=== PATIENT | female | born 1985 | race Caucasian/White ===

== ENCOUNTER 2020-07-01 12:07 | Emergency (ER) | payer BC, OTHER ==
--- OUTSIDE RECORDS SUMMARY | 2020-07-01 12:11 | XMS REPORT | Continuity of Care Document ---
:1985 Author Organization [facility] t Address [address] [place] [address] Care Team Providers Name Role Phone Tamika REIS Primary Care Physician Unavailable Maria ORTIZ Attending Clinician Unavailable Christiano STILL Attending Clinician ARMANDO Attending Clinician Unavailable Armando PIERCE Attending Clinician Tamika REIS Attending Clinician Unavailable Vick LAURA, S Attending Clinician Capri STILL Attending Clinician Tyrell Reyes MA Attending Clinician Unavailable Tamika Reis MD Attending Clinician Montse RODRIGUEZ C Attending Clinician Unavailable Gertrudis GREEN Attending Clinician Unavailable Bria GREEN CMarlon Attending Clinician Unavailable Piero PIERCE Attending Clinician Giovanni PIERCE Attending Clinician Carmen Williamson MA Attending Clinician Unavailable CAPRI Attending Clinician Unavailable KENDAL Attending Clinician Unavailable Kendal LAURA Attending Clinician Tye PIERCE Attending Clinician Carla GREEN, Y Attending Clinician Unavailable Sander GREEN, E Attending Clinician Unavailable Cristina PIERCE, N. Attending Clinician Jefferson GREEN, L Attending Clinician Unavailable Curry GREEN M Attending Clinician Glenis Ulloa Attending Clinician Unavailable CHRISTIANO Attending Clinician Unavailable Won Attending Clinician FLEMING, D. 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-06 current current 0 Anderso use of use of 00:00: n insulin insulin 00 Type II Type II Disease Active diabetes diabetes 02-15 Ashwin o mellitus mellitus 00:00: n uncontroll uncontroll 00 ed ed Sedentary Sedentary Disease Active lifestyle lifestyle 02-15 Johann rso 00:00: n 00 Candidal Candidal Disease Active vulvovagin vulvovagin 01-30 An derso itis itis 00:00: n 00 Abnormal Abnormal Disease Active uterine uterine 01-30 Anderso bleeding bleeding 00:00: n 00 Hyperlipid Hyperlipid Disease Active M D emia emia 10-28 Anderso 00:00: n 00 Type 2 Type 2 Disease Active diabetes diabetes 03-23 Ashwin o mellitus mellitus 00:00: n with with 00 hyperglyce hyperglyce la la Presence Presence Disease Active MD velásquez of 02-03 Anderso intrauteri intrauteri 00:00: n ne ne 00 contracept contracept dioni device dioni device Hypertensi Hypertensi Disease Active M D on on 12-29 Anderso 00:00: n 00 Hyperglyce Hyperglyce Disease Active M D la la 12-21 Anderso 00:00: n 00 Malignant Malignant Disease Active neoplasm neoplasm 11-23 Ashwin o of of 00:00: n endometriu endometriu 00 m m Morbid Morbid Disease Active (severe) (severe) 11-10 Ashwin o obesity obesity 00:00: n due to due to 00 excess excess calories calories Chronic Chronic Disease Active iron iron 11-10 Anderso deficiency deficiency 00:00: n anemia 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 Family History Family Member Diagnosis Comments Start Date Stop Date Source Maternal aunt -Gynecology (Ovary, MD Holland Endometrial, Cervix, Vagina) Maternal grandfather -Gastrointestinal MD Holland (Esophagus, Liver, Bile Duct, Stomach, Pancreas, Colon, Rectum, Anus Maternal uncle Diabetes MD Conrad hughes Natural mother Diabetes MD Conrad hughes Natural mother Hypertension Vaughn son Paternal aunt -Breast cancer MD Wills rsnataly Family member Heart disease MD Mendes son Social History Social Habit Start Date Stop Date Quantity Comments Source Sex Assigned At MD Christopher on Tobacco use and 2020-03-25 2020-03-25 Never used MD Christopher on exposure 00:00:00 00:00:00 Alcohol intake 2020-03-25 2020-03-25 Current MD Conrad hughes 00:00:00 00:00:00 non-drinker of alcohol (finding) Alcohol Comment 2016-12-29 2016-12-29 none since early MD Holland 00:00:00 00:00:00 06/2016 Smoking Status Start Date Stop Date Source Never smoker MD Holland Medications Ordered Filled Start Stop Current Ordering Indication Dosage Frequency Signature Comments Components Source Medication Medication Date Date Medication? Clinician (SIG) Name Name dulaglutide 2019-06 Yes Morbid 1.5mg Inject 1.5 (Trulicity) 2-15 obesity mg under A nderso 1.5 mg/0.5 00:00: the skin n mL 00 once a injection week. insulin 2019-06 Yes Diabetes 18U Inject 18 M D glargine 2-15 mellitus Units Ashwin o (LANTUS 00:00: without under the n SOLOSTAR) 00 mention of skin twice 100 unit/mL complicatio daily. (3 mL) n, type II insulin pen or unspecified type, uncontrolle d insulin 2019-06 Yes Diabetes 10U Inject aspart 2-15 mellitus 10-20 Anderso U-100 00:00: without Units n (NovoLOG 00 mention of under the Flexpen complicatio skin 3 U-100 n, type II (three) Insulin) or times a 100 unit/mL unspecified day before (3 mL) type, meals. insulin pen uncontrolle Take d before meals as per the instructio ns provided insulin 2019-06 2020- No Diabetes 20U Inject 20 MD glargine 1-11 12-15 mellitus Units Vaughn so (LANTUS 00:00: 00:00 without under the n SOLOSTAR) 00 :00 mention of skin twice 100 unit/mL complicatio daily. (3 mL) n, type II insulin pen or unspecified type, uncontrolle d insulin 2019-06 2020- No Diabetes 14U Inject MD aspart - 12-15 mellitus 14-24 Anderso U-100 00:00: 00:00 without Units n (NovoLOG 00 :00 mention of under the Flexpen complicatio skin 3 U-100 n, type II (three) Insulin) or times a 100 unit/mL unspecified day before (3 mL) type, meals. insulin pen uncontrolle Take d before meals as per the instructio ns provided lisinopril 2019-06 Yes Hypertensio 40mg Take 1 MD (PRINIVIL,Z 0-29 n tablet (40 An derso ESTRIL) 40 00:00: mg) by n mg tablet 00 mouth every morning. amLODIPine 2019-06 Yes Hypertensio 5mg Take 1 MD (Norvasc) 5 0-29 n tablet (5 And erso mg tablet 00:00: mg) by n 00 mouth every evening. dulaglutide 2019-06- No Type 2 .75mg Inject MD (Trulicity) 12-15 diabetes 0.75 mg Anderso 0.75 mg/0.5 00:00: 00:00 mellitus under the n mL 00 :00 with skin once injection hyperglycem a week. ia ibuprofen 2019- Yes Malignant 800mg Take 1 MD (ADVIL,MOTR 03-17 neoplasm of tablet Anderso IN) 800 mg 00:00: endometrium (800 mg) n tablet 00 by mouth every 8 (eight) hours as needed for moderate pain. acetaminoph Yes Malignant 500mg Take 1 MD en (Tylenol 03-17 neoplasm of tablet Anderso Extra 00:00: endometrium (500 mg) n Strength) 00 by mouth 500 mg every 6 tablet (six) hours as needed for mild pain. minocycline 2020- No Malignant 100mg Take 1 MD (Minocin) 03-17 09-30 neoplasm of capsule Anderso 100 mg 00:00: 04:59 endometrium (100 mg) n capsule 00 :00 by mouth twice daily for 7 days. insulin 2019-2019- No Diabetes 18U Inject 18 MD glargine 03-09 11-11 mellitus Units Vaughn so (LANTUS 00:00: 00:00 without under the n SOLOSTAR) 00 :00 mention of skin twice 100 unit/mL complicatio daily. (3 mL) n, type II insulin pen or unspecified type, uncontrolle d insulin 2019-2019- No Diabetes 12U Inject MD aspart 03-09- mellitus -22 Anderso U-100 00:00: 00:00 without Units n (NovoLOG 00 :00 mention of under the Flexpen complicatio skin 3 U-100 n, type II (three) Insulin) or times a 100 unit/mL unspecified day before (3 mL) type, meals. insulin pen uncontrolle Give as d directed. insulin 2019-2019- No Diabetes 12U Inject MD lispro 03-09-18 mellitus - Anderso (HumaLOG 00:00: 00:00 without Units n KwikPen 00 :00 mention of under the Insulin) complicatio skin 3 100 unit/mL n, type II (three) insulin pen or times a unspecified day before type, meals for uncontrolle 30 days. d Give per instructio ns. lisinopril 2019- No Hypertensio 40mg Take 1 MD (PRINIVIL,Z - 10-29 n tablet (40 A nderso ESTRIL) 40 00:00: 00:00 mg) by n mg tablet 00 :00 mouth every morning. medroxyPROG 2019-0 Yes Menorrhagia 10mg Take 1 MD ESTERone 8-24 tablet (10 Vaughn so (Provera) 00:00: mg) by n 10 mg 00 mouth tablet daily. levonorgest 2019- 2020- No by rel 02-13 08-21 intrauteri Anderso (MIRENA) 20 14:19: 00:00 ne route n mcg/24 hour 20 :00 once. (5 years) IUD hydroCHLORO 2019-0 Yes Hypertensio 25mg Take 1 MD thiazide 8-21 n tablet (25 Vaughn so (HYDRODIURI 00:00: mg) by n L) 25 mg 00 mouth tablet every morning. pen needle, 2020-0 Yes Diabetes Use to diabetic 32 02-13 mellitus inject An derso gauge x 00:00: without insulin 4 n " ndle 00 mention of times complicatio daily. n, type II or unspecified type, uncontrolle d blood-gluco Yes Diabetes Use to se meter 02-13 mellitus check Ashwin o kit 00:00: without blood n 00 mention of glucose as complicatio directed. n, type II or unspecified type, uncontrolle d blood sugar Yes Diabetes Use to MD diagnostic 02-13 mellitus check BG 3 Anderso (glucose 00:00: without times n blood) strp 00 mention of daily complicatio before n, type II meals. or unspecified type, uncontrolle d FreeStyle Yes Diabetes 1{kit} 1 kit by Catrachita 14 02-13 mellitus miscellane A nderso Day Sensor 00:00: without ous route n kit 00 mention of every 28 complicatio days. n, type II Replace or sensor unspecified every 14 type, days. uncontrolle d amLODIPine 2019- No Hypertensio 5mg Take 1 MD (Norvasc) 5 02-13 10- n tablet (5 An derso mg tablet 00:00: 00:00 mg) by n 00 :00 mouth every evening. insulin 2019- No Diabetes 6U Inject lispro 02-13 mellitus 6-16 Units An derso (HumaLOG 00:00: 00:00 without under the n KwikPen 00 :00 mention of skin 3 Insulin) complicatio (three) 100 unit/mL n, type II times a insulin pen or day before unspecified meals for type, 30 days. uncontrolle Give per d instructio ns. insulin 2019- No Diabetes 18U Inject 18 glargine 02-13 mellitus Units Vaughn so (LANTUS 00:00: 00:00 without under the n SOLOSTAR) 00 :00 mention of skin every 100 unit/mL complicatio morning. (3 mL) n, type II insulin pen or unspecified type, uncontrolle d lancets 33 2019- No Diabetes Use lancet MD parr misc 02-13 08- mellitus to check Anderso 00:00: 04:59 without BG three n 00 :00 mention of times complicatio daily as n, type II as needed or for unspecified symptoms. type, uncontrolle d lisinopril 2019- Hypertensio 40mg Take 1 (Allan SHETH 01-30 n tablet (40 A nderso ESTRIL) 40 00:00: 00:00 mg) by n mg tablet 00 :00 mouth every morning. nystatin Candidal Apply MD (MYCOSTATIN 01-30 vulvovagini topically Anderso ) 100,000 00:00: 04:59 tis to n units/g 00 :00 affected powder area(s) 3 (three) times a day for 7 days. fluconazole Candidal 200mg Take 1 MD (DIFLUCAN) 01-30 vulvovagini tablet Anderso 200 mg 00:00: 04:59 tis (200 mg) n tablet 00 :00 by mouth daily for 3 days. metFORMIN Type 2 Take 1 MD (GLUCOPHAGE 12-29 diabetes tablet PO Anderso -XR) 500 mg 00:00: 00:00 mellitus in twice n 24 hr 00 :00 obese daily with tablet breakfast and dinner. If not having diarrhea after 5-7 days increase to 2 tablets twice daily. blood-gluco 2019- Type 2 Use as M D se meter 12-29 diabetes instructed Anderso kit 00:00: 00:00 mellitus in to check n 00 :00 obese blood sugar once daily lancets 2019- Type 2 Use to MD walton 12-29 diabetes check Anderso 00:00: 00:00 mellitus in blood n 00 :00 obese glucose once daily as instructed blood sugar 2019- No Type 2 Use to M D diagnostic 12-29 diabetes check And erso (glucose 00:00: 00:00 mellitus in blood n blood) strp 00 :00 obese sugar once daily such as Mon/Wed: fasting; Tues/Thurs : 2 hr after largest meal; Fri/Sat/[place] n: Bedtime ONETOUCH 2019- MD CRUZ 12-29 Anderso LANCETS 33 00:00: 00:00 n gauge misc 00 :00 lisinopril 2017-0 2020- No Hypertensio 40mg Take 1 (Allan SHETH 12-29- n tablet (40 A nderso ESTRIL) 40 00:00: 00:00 mg) by n mg tablet 00 :00 mouth every morning. Vital Signs Vital Name Observation Time Observation Value Comments Source WEIGHT 2020-03-13 09:31:45 147 kg WEIGHT 2020-03-13 09:31:45 147 kg WEIGHT 2020-02-14 08:33:23 146.2 kg WEIGHT 2020-02-14 08:33:23 146.2 kg Systolic blood pressure 2020-03-17 22:30:00 139 mm[Hg] MD Holland Diastolic blood pressure 2020-03-17 22:30:00 75 mm[Hg] MD Holland Heart rate 2020-03-17 22:30:00 72 /min MD Vaughn slater Body temperature 2020-03-17 22:30:00 36.72 Germaine MD Paxton allison Respiratory rate 2020-03-17 22:30:00 18 /min MD Paxton allison Oxygen saturation in 2020-03-17 22:30:00 97 /min MD Holland Arterial blood by Pulse oximetry Body weight 2020-03-13 19:29:23 148.5 kg MD Vaughn slater BMI 2020-03-13 19:29:23 54.54 kg/m2 MD Vaughn slater Procedures Procedure Date / Time Performed Performing Clinician [facility] e POC GLUCOSE SCREEN 2020-03-17 21:42:00 Cecile Reis MD And jer PATHOLOGY SURGICAL 2020-03-17 20:09:00 Cecile Reis MD And ersnataly INTERPRETATION HYSTEROSCOPY; WITH BIOPSY OF 2020-03-17 18:52:00 Cecile Reis MD ENDOMETRIUM AND/OR POLYPECTOMY, WITH OR WITHOUT D & C INSERTION OF INTRAUTERINE 2020-03-17 18:52:00 Cecile Reis MD DEVICE TYPE AND SCREEN 2020-03-17 16:23:00 Cecile Reis MD Ashwin on ABORH 2020-03-17 16:23:00 Cecile Reisers on ANTIBODY SCREEN 2020-03-17 16:23:00 Cecile Reis MD on CLOT EXPIRATION DATE 2020-03-17 16:23:00 Cecile Reis MD TMP INTERPRETATION ANTIBODY 2020-03-17 16:23:00 Cecile Reis MD SCREEN NEGATIVE POC GLUCOSE SCREEN 2020-03-17 16:22:00 Cecile Reis MD And [facility] GENERAL LABORATORY ADD ON 2020-03-13 16:21:00 Jnaa Gamble MD TEST XR CHEST 2 VW 2020-03-13 14:17:21 Haley Farooq MD HC NCOV COVID-19 2020-03-13 13:23:00 Cecile Reis MD EKG, 12-LEAD (SCHEDULED) 2020-03-13 00:00:00 Haley Farooq MD URINE CULTURE 2020-03-12 14:57:00 Haley Farooq MD COMPLETE BLOOD COUNT W/ 2020-03-12 14:57:00 Haley Farooq MD DIFFERENTIAL COMPREHENSIVE METABOLIC PANEL 2020-03-12 14:57:00 Haley Farooq MD PROTHROMBIN TIME 2020-03-12 14:57:00 Haley Farooq MD PARTIAL THROMBOPLASTIN TIME 2020-03-12 14:57:00 Haley Farooq MD URINALYSIS WITH MICROSCOPIC 2020-03-12 14:57:00 Haley Farooq MD IF INDICATED HEMOGLOBIN A1C 2020-03-12 14:57:00 Haley Farooq MD HUMAN CHORIONIC GONADOTROPIN, 2020-03-12 14:57:00 Haley Farooq MD QUALITATIVE, URINE TYPE AND SCREEN 2020-03-12 14:57:00 Haley Farooq MD Results CBC 2020-03-12 14:57:00 Haley Farooq MD MANUAL DIFFERENTIAL 2020-03-12 14:57:00 Haley Farooq MD GLUCOSE LEVEL 2020-03-12 14:57:00 Haley Farooq MD ELECTROLYTE PANEL 2020-03-12 14:57:00 Haley Farooq MDo n SERUM CREATININE 2020-03-12 14:57:00 Haley Farooq MD .GLOMERULAR FILTRATION RATE 2020-03-12 14:57:00 Haley Farooq MD CALCIUM LEVEL TOTAL 2020-03-12 14:57:00 Haley Farooq MD ALBUMIN LEVEL 2020-03-12 14:57:00 Haley Farooq MD ALKALINE PHOSPHATASE 2020-03-12 14:57:00 Haley Farooq MD rson ALANINE AMINOTRANSFERASE 2020-03-12 14:57:00 Haley Farooq MD ASPARTATE AMINOTRANSFERASE 2020-03-12 14:57:00 Haley Farooq TOTAL PROTEIN 2020-03-12 14:57:00 Haley Farooq MD FRACTIONATED BILIRUBIN 2020-03-12 14:57:00 Haley Farooq MD derson ABORH 2020-03-12 14:57:00 Haley Farooq MD ANTIBODY SCREEN 2020-03-12 14:57:00 Haley Farooq MD BLOOD UREA NITROGEN 2020-03-12 14:57:00 Haley Farooq MD Vaughn son URINALYSIS MICROSCOPIC 2020-03-12 14:57:00 Haley Farooq MD derson CLOT EXPIRATION DATE 2020-03-12 14:57:00 Haley Farooq MD rson TMP INTERPRETATION ANTIBODY 2020-03-12 14:57:00 Haley Farooq MD SCREEN NEGATIVE LIPID PANEL 2020-03-12 14:57:00 Haley Farooq MD GENERAL LABORATORY ADD ON 2020-02-14 15:32:00 Jana Gamble MD TEST URINE CULTURE 2020-02-14 13:19:00 Haley Farooq MD COMPLETE BLOOD COUNT W/ 2020-02-14 13:19:00 Haley Farooq MD nderson DIFFERENTIAL COMPREHENSIVE METABOLIC PANEL 2020-02-14 13:19:00 Haley Farooq MD PROTHROMBIN TIME 2020-02-14 13:19:00 Haley Farooq MD THROMBIN TIME 2020-02-14 13:19:00 Haley Farooq MD PARTIAL THROMBOPLASTIN TIME 2020-02-14 13:19:00 Haley Farooq MD URINALYSIS WITH MICROSCOPIC 2020-02-14 13:19:00 Haley Farooq MD IF INDICATED HEMOGLOBIN A1C 2020-02-14 13:19:00 Mary Perez MD [place] HUMAN CHORIONIC GONADOTROPIN, 2020-02-14 13:19:00 Mary Perez MD QUALITATIVE, URINE [place] Results CBC 2020-02-14 13:19:00 Haley Farooq MD MANUAL DIFFERENTIAL 2020-02-14 13:19:00 Haley Farooq MD Vaughn son GLUCOSE LEVEL 2020-02-14 13:19:00 Haley Farooq MD ELECTROLYTE PANEL 2020-02-14 13:19:00 Haley Farooq MD Melylizao n SERUM CREATININE 2020-02-14 13:19:00 Haley Farooq MD .GLOMERULAR FILTRATION RATE 2020-02-14 13:19:00 Haley Farooq MD CALCIUM LEVEL TOTAL 2020-02-14 13:19:00 Haley Farooq MD Vaughn son ALBUMIN LEVEL 2020-02-14 13:19:00 Haley Farooq MD ALKALINE PHOSPHATASE 2020-02-14 13:19:00 Haley Farooq MD Johann rson ABORH 2020-02-14 13:19:00 Haley Farooq MD ALANINE AMINOTRANSFERASE 2020-02-14 13:19:00 Haley Farooq MD ASPARTATE AMINOTRANSFERASE 2020-02-14 13:19:00 Haley Farooq TOTAL PROTEIN 2020-02-14 13:19:00 Haley Farooq MD ANTIBODY SCREEN 2020-02-14 13:19:00 Haley Farooq MD FRACTIONATED BILIRUBIN 2020-02-14 13:19:00 Haley Farooq MD BLOOD UREA NITROGEN 2020-02-14 13:19:00 Haley Farooq MD Vaughn son URINALYSIS MICROSCOPIC 2020-02-14 13:19:00 Haley Farooq MD TMP INTERPRETATION ANTIBODY 2020-02-14 13:19:00 Haley Farooq MD SCREEN NEGATIVE CLOT EXPIRATION DATE 2020-02-14 13:19:00 Haley Farooqe rson THYROID STIMULATING HORMONE 2020-02-14 13:19:00 Haley Farooq MD FREE THYROXINE 2020-02-14 13:19:00 Haley Farooq MD MAGNESIUM LEVEL 2020-02-14 13:19:00 Haley Farooq MD LIPID PANEL 2020-02-14 13:19:00 Haley Farooq MD TMP INTERPRETATION EXCEPTION 2020-02-14 13:19:00 Haley Farooq MD PREOP EXPIRATION XR CHEST 2 VW 2020-02-14 12:38:21 Haley Farooq MD EKG, 12-LEAD (SCHEDULED) 2020-02-14 00:00:00 Haley Farooq MD US PELVIS LIMITED 2020-02-04 19:20:54 Cecile Reis MD Johann rson US TRANSVAGINAL 2020-02-04 19:20:16 Cecile Reis MD [place]win on PATHOLOGY BIOPSY 2020-01-31 15:21:00 Cecile Reis MD Vaughn son INTERPRETATION HUMAN CHORIONIC GONADOTROPIN, 2020-01-31 14:00:00 Shayne Alvarado MD QUALITATIVE, URINE Encounters Start End Encounter Admission Attending Care Care Encounter Source Date/Time Date/Time Type Type Clinicians Facility Department ID 2020-02-05 Outpatient MINO ORTIZ MDA [id number] 12:16:15 OCTOBER Conrad hughes 2020-06-09 2020-06-09 Outpatient SOLIS SALINAS MDA MDA [id number] 12:44:42 13:07:32 Ashwin hughes 2020-05-06 2020-05-06 Outpatient CHRISTINA REIS MDA MDA [id number] 00:00:00 00:00:00 CECILE hughes 2020-04-29 2020-04-29 Outpatient CHRISTINA REIS MDA MDA [id number] 00:00:00 00:00:00 CECILE hughes 2020-04-23 2020-04-23 Outpatient SOLIS SALINAS MDA MDA [id number] 09:52:08 10:18:08 Ashwin hughes 2020-04-01 2020-04-01 Outpatient MINO REIS MDA [id number] 11:11:51 11:14:49 CECILE hughes 2020-03-17 2020-03-17 Outpatient CHRISTINA REIS MDA Gynecology [id number] 09:40:00 17:52:00 CECILE hughes 2020-03-13 2020-03-13 Outpatient EL HALEY FAROOQ MDA MDA [id number] 08:59:00 23:59:00 Ashwin hughes 2020-03-13 2020-03-13 Outpatient HALEY MCMILLAN MDA MDA [id number] 14:19:51 14:19:51 Ashwin hughes 2020-03-13 2020-03-13 Outpatient CHRISTINA EDMONDS MDA MDA [id number] 10:26:58 12:40:40 RAMÍREZ Ashwin o n 2020-03-13 2020-03-13 Outpatient ARCHANA, MDA MDA [id number] 09:20:59 12:40:31 CECILE Christopher o n 2020-03-13 2020-03-13 Outpatient HALEY FAROOQ MDA MDA [id number] 08:30:00 08:58:00 Ashwin o saul 2020-03-13 2020-03-13 Outpatient HALEY FAROOQ MDA MDA [id number] 08:18:26 08:27:21 Ashwin o saul 2020-03-12 2020-03-12 Outpatient HALEY FAROOQ MDA MDA [id number] 09:33:19 23:59:00 Ashwin o saul 2020-03-04 2020-03-04 Outpatient ARCHANA MDA MDA [id number] 11:09:15 11:09:30 CECILE Christopher o saul 2020-02-27 2020-02-27 Outpatient HALEY FAROOQ MDA MDA [id number] 10:48:14 11:29:55 Ashwin o saul 2020-02-18 2020-02-18 Outpatient HALEY FAROOQ MDA MDA [id number] 10:11:10 10:19:26 Ashwin o saul 2020-02-17 2020-02-17 Outpatient HALEY FAROOQ MDA MDA [id number] 00:00:00 00:00:00 Ashwin o saul 2020-02-14 2020-02-14 Outpatient HALEY FAROOQ MDA MDA [id number] 08:04:22 23:59:00 Ashwin o n 2020-02-14 2020-02-14 Outpatient KENDAL, MDA MDA [id number] MD 15:26:16 15:43:26 RAMÍREZ Ashwin o n 2020-02-14 2020-02-14 Outpatient HALEY FAROOQ MDA MDA [id number] 14:45:40 14:59:36 Ashwin o n 2020-02-14 2020-02-14 Outpatient KENDAL, MDA MDA [id number] MD 09:41:47 12:31:58 RAMÍREZ Ashwin o n 2020-02-14 2020-02-14 Outpatient HALEY FAROOQ MDA MDA [id number] 08:25:09 10:12:42 Ashwin hughes 2020-02-14 2020-02-14 Outpatient HALEY MCMILLAN MDA MDA [id number] 07:41:07 08:03:00 Ashwin hughes 2020-02-14 2020-02-14 Outpatient HLAEY MCMILLAN MDA MDA [id number] 07:19:49 07:40:00 Ashwin hughes 2020-02-14 2020-02-14 Outpatient HALEY MCMILLAN MDA MDA [id number] 00:00:00 00:00:00 Ashwin hughes 2020-02-04 2020-02-04 Outpatient CHRISTINA REIS MDA MDA [id number] 13:39:19 13:39:19 CECILE hughes 2020-02-04 2020-02-04 Outpatient CHRISTINA REIS, MDA MDA [id number] 13:10:56 13:10:56 CECILE hughes 2020-01-31 2020-01-31 Outpatient CHRISTINA REIS, MDA MDA [id number] 09:07:01 09:07:01 CECILE hughes 2020-01-31 2020-01-31 Outpatient CHRISTINA ALVARADO MDA MDA [id number] 08:53:50 09:01:48 SHAYNE hughes 2019-11-06 2019-11-06 Outpatient CHRISTINA REIS, MDA MDA [id number] 00:00:00 00:00:00 CECILE hughes Results Test Description Test Time Test Comments Results Result Comments Source Pathology Surgical Interpretation 2020-03-18 19:42:00 Test Item Value Reference Range Interpretation Comme nts Diagnosis v8nfiJVgEZDheLB2XCHiCLEqq6rpq6KdcXEquXVhKYwdtDUplsRmbw48aKW8rL79AI7uKRGqRvG5SMEi ruP6Wad6EDJhIJMjpPJpQ865l9tan7ybihEgvDH5iOoyHCBgUOYuOIwcFTIcNtSeQL8bWE2SV27KOALL QTqjL5NAIKCQCG6DBxeihXYcPNunLdXyYWytdoizMJJAGRKORHN (test code LRRNWOvDTDQPYCSCMFZCLVD5NRACWSEUZRBbASAtiEVVrUBIVP8LmS64HRKbSHTHMMKiKKYNKNQYQQES WHfDCWMJJDJDKWETYOHNKAMIMH9aDYNVPLCECUFxXG5UHTxROHTRKF9VDSgcfUVIjJFNHGKXEM86GMJ5 KENvgZWIjhRxsAKjqovGicCCkCQMSZd2LGLcpZJG3 = 34) Comment v6zstFWtTLRwvJB6ZDJcUITef1beb3IvpVTgqZBcJXoxrAShtiSwzq16fXQ8gW96FX1sWQMzOeM8XCYj xyT9Asa7JZYqOBLqyQNwN016u9btl4anmdXzpGI2jDovMCUeMGUbOQjzMPAhFmUoW0r1UH5qdKgaAK6d uuxiGQQtswTuySLelHX7fL6iEWHmJFKjEJXipQrfv3OzXcJvvNA (test code wW5NpQLBbBGGgp4MieBXfoVl8iERtFrVgXEgzcq7oshRnYAVdglLtmNB3edjpaQRxWXNpaj1mBIBkcY7 oiRCqZKfzWIOXZ24rTHkagcKzp2veQmubT6Gram42PEFtUYBysKgjPSk2UKV8M2p3PANtKdVLow2fkHH jsLFvhQAyFqJtCLJzyVdjqmEkNOWgj5E3DJDovdLvU3foy0ZzGx = 9835) 9goD45EJFcPQfmDSScJ15jsHYmTRElUxqnJMX6 Gross k0qzvORhHXFry3fqOHWoQuDwTZZTi0zrn188qZMgGSdfDcGrRwR7vAPlWDOrqMFez4E6FAodaGBsRfRQ niazdSs3u8zqR6ajos1wDJ1wFeQkPKOcGNMcLBHtdlKwMZGsrGDgQT1nbzKSx49bcjy5b5zwATfzfV8s LCXpKXHjuZCut5K2MSwyoFKhBRFDp4ElvSIvLS4rpje4a7hiBPp Descriptio nf1qai8AfYfIhIRBzURUnOXXofyHdDNLznCBjBN2aoyRglui6t1vcKULdGh6vWPCyvnujC7iidlHpoGD sYzFkuLMyS786gofqzdw3l4fcPKLsAs3npJarY7weelZywIYiVhAebRWlRNBwkYKBuXNaopLppYM1jKs gYhBqVIGbw25lcqojQ8bxseXdoSWmAtCqyFZnB2lnHa3nM953NU n (test AmWTljc1iwp1DsQsYlMWDfVZAwEHRrrqRiOKJuQ29wVLFLB816YGRhNDKaSRXrc5kao1ixJ9iwsoSsnC HbFkNyzSXwBEEdQZq5dX3Wr8xjp8xsklCdwIF5TPVcLPXeD6ArNK7eOIYoaUCnY6yuSJOuOCaybbMcpc Q4ZKYuuIAaSRltziIjWmDyE0PcTT7wAYzopIDfXyC2HEMmQZI8R code = NvdHFArHTkmWyw0WAG4P5kdXDF9X4seyhYcdmXxWQKsbWT5MrpmpqZgPkbwA2MuXU92CZlwyNTwVvp8Y KFyZMq4MUklRKDuZBCpZfa7DRm0V1upSLOcMOTmG0AmXX0jNWWgSkv1AQDtGMemynOuBXY1XJdhPMHyA RC3EJWecOKtNak5PENnSSF3G3anbuWkeqU2I3gtoJFuPEQiF5or [id number] SPQaCCtdN3MiAV1oXGscBey9XSA4BGgtuhNbSVf9QCrsBXUsQCa9NISqlXYgLmS4ZCCrTEX7WXjyutOw teE5UHurgZThVPddY5hbDOHlIYznE8IwBU6gWDpdYpf4ZYAcVytuljOrRyRcKSdkAVFwCkRsATNlbODr VyF6WJLuNBIhTIggubJeuuScKSvuyLAvNpE8H3vgNHQqAUMsS2H ) yBV6iXCOdFkf0ARQ2HCedbcXiVVvmowFcdrTcTyg0PAE8HFd0Mcmrh4E5tGPesCHefDfbepJljWHkNPm cRgFhI109ESSpDEnzAWQbapasOzj6z0ppGhVlHWEhoW2sISG2cOzflgCgaPNqMYsmWnZ1P637IRR4HAy dHWLrcdpbABd5h8riHmCiOIKyqK2iJIX9kS5ABljsDCGhfwksRI a5EFvxKMHscmnmDhA5ISojGHXrpPg8IJdjEVLqfxD2OgarIWHeaTfiULagXXAcBxkyDAwmCSCmPTQ6Sq MgALXba8Msxyn3BkJtXoStZLEDBebevFHbRIM4GHU7QgLvZXPbGvlmZDFlGR4nvKejxZd0oRbtWYRycr Z5gPIdRUduy8ywAIC0h7qdvzypZGHcBEyeTp0lnXHqzEhvLbZnR JIpIMo5aO07WNUvjT2vxIMnEPh5YGLzjtHguBklcA5vKvObNYMZRgZGbrLwzYF1favfqIOprMSdcHOrh edmTwLJs23tyFP7xhJbGqZwaQk6cYIgKOAqshErrVMdmLYup7OdxXOwKRLaj8osRKVcQqUfkWsfv1QhP YNmMP5goOQaOUbzkDtjUpirp9VyJ1kkbAdivQfwiUSnM5mcVDyh oAJuMRGsACWrRGS5GSEgPGW6PCZkYhDkjDubQjyumQFcEJBkVJ2cYKVjjWihNCe4BRU4Is2lgXFeHIAs upVPEH4hPjBvXWOgw0SzE9OozVIscJBlxBNgTCjpqOCeiTZfvIMmWVMcYHoyZWLfPnKreMVqjGvrQFM0 Cn0= Talent Acquisition Manager h5uarULaJWMltYD7IZRkHDSaz7ber2ZirRMmuHTaAQqtqGDnqvBtqx82wUU1cS20MB3vNRAkVbS3UACh etW6Ftt9WPFdNFAfeEDhG734k6xva9ynpqPjmUY9gYarDTWzCLLqWEgrOZZcQhJbJDMQIUavTWR0 (s) (test code = 9863) Disclaimer u6snsDYiLSErkLYsVcYmNVYwJMPci3wcLPRwyAKqUzTbRnXaZiDbDsbdmSBsZGEkRtWwb4msr392pWGg w3acOBFrMiE3tQXoYSXclZIaG080ITUaWIrum8cct6JyLUEatYZnv7H3ZZQLbcmjqKb3tFjoZ25xa9D6 FbdtU8ddOOVrGBUrR2PpFX9qQBTgYfn8PNY8EFZ1FCHdBZIuP4A (test code kKQ9oSRTeoAQmERs7h1mwzVtjAHXqOBJ9n9zeGMcvjmOjEU5gmz0afBw4i5gvhaPkTETmYCIzvDJWFZS zX1QglPnfYz0kcCc7qExcFyklQTR1Qyt1SK5mon26ddb9yWouLNRlhihpOzC4ZFbcKFXfoeumTHa8TSm cXWNbbYO8FFBhgREbH9GrEIQkEN0mkkk0XNE1HVpaCCQrPvW6ET = 9844) VpsKEiYVXkvAulVEhfa353NUZ7FpJrXN2gE7Hxs9T5qB5fmMCcUMTinHQgQvClDIDdje4bmFYxKKirq1 TfGZT7bjL3qADwiFKdKXLiNY20Idylh1AqFqebOHR5EXJyrvQzq5Njj0afGcZzndLcF8huT5MqOEZfHN LkRGFyYcZedbLsh3Umc2MjrLCryTq8v8nxOHQuLADkrXapq3ivG XL7AHCaX6L1kZCsp5yyAKtoDURmfPU7ncM8SNRqiTIsF3JlqX5sJWDuLP1vpvi8x0srOER3AKjaXDByM wW0vwB5XEJybYYvSCIhpAmsCIcem632SWN8BgRrIEPlu9GtR8CxcXjyE34iwXhmO68mBDQxpBsppY6oi YttgS7pRwBpTeJwGYztxCoeeHKzlhzvDNbancQ8XFcukzgiKYVs CNnvO8uyLuSqQOUwwAtsYTffd9RoZHNeEJIqEhjpokU1VTEAc94sYDUil5JzDAWxhV5erJLrJMwmgoGr zFS4JIlsyvSvRuWmnsQyEOWivR2bBBQgNA0hTXVrwaUqja9vchOgGXWxPUJsG9RqucqylWteoeKfGMLq sw4eloKlQRZ3UASOEH1KBDUoRPVjs74nIDEujMksvC5ovFClhvZ tUDHmw5BbnR1dbISIJJRaS1vzWR3mGQwck6JyyAUfcYJgdAE7JJLtg9ApUhUeysThjWXmmHExI6YkkLm bL2nzSMWnSYSgpjBbxHFlt3TbWOGhiAH8sLJoRM7XLuNOz20nXLMeNDCGfzNwDAUckDiolNB8wpD1cA3 nWtMVJrYscISftNSrKyueKOMgs034nb3qozQ0AGRiSHKlopyth1 MjBMJsXYUnqZ84VGBaXHPezr9wzffaoWRyewKhJ1Tqaje6lK9tWAWqREarXPYqQUOxTnHrmSQrGvEvZs SlvTdgpAkbOQhrJiBlUXLuTHqzY6mhWsSbIzAwJqvoHHJ4 MD HollandVaughn Interpretation Antibody Screen [id number] 02:37:40 Test Item Value Reference Range Interpretation Comments TMP Auto Neg At the present ABSC Interp time, patient (test code = plasma shows no LIONEL 7535) evidence of RBC ROWELL alloantibodies. Kris HARRELL silvino by: LIONEL HARRELL,Dictated Date/Time: 03.17.2020 21:3 7 PM CDT Transcrib ed Date/Time: 03.17.2020 21:3 7 PM CDTElectronical ly Signed By: NATHAN IN LELIA HARRELL, on 03.17.2020 21:3 7 PM [facility] Glucose [id number] 21:50:28 Test Item Value Reference Range Interpretation Comments POC Glucose (test 186 mg/dL 70-99 H Capillary blood code = 66915-7) samples, e.g . obtained by fingerstick, may have inaccurate results in patients wit h decreased perip heral blood flow. Met hod description: Al l results are dannielle sured using Electroch emistry test methodolog y. The glucose in the sample mixes with the reagents on the test str ip. The reaction produc es an electric curren t. The amount of curre nt produced is proportional to the glucose concent ration in the blood. PO Sample Type (test Capillary code = 9554) Lab Interpretation Abnormal (test code = 52624-4) MD HollandAntibody [id number] 18:20:37 Test Item Value Reference Range Interpretation Comments ABSC. (test code = 890-4) Negative ABSC MD HollandAtznmwzuRVQEx1963-56-56 18:20:36 Test Item Value Reference Range Interpretation Comments ABORh. (test code = 882-1) O POS MD HollandClot Expiration [id number] 18:20:34 Test Item Value Reference Range Interpretation Comments T & S Expiration (test code = 03/20/2020 5318) MD HollandUrine [id number] 21:57:00 Test Item Value Reference Range Interpretation Comments Final Report (test code 10 - 50,000 cfu/ml A = 8488) Streptococcus agalactiae (Group B)...<10,000 cfu/ml Normal site kinsey present. Path Review - Urine The results have been A (test code = 8483) reviewed and electronically signed by Pathologist:Chloe Moody MD, PhD #[id number] Lab Interpretation Abnormal (test code = 35931-8) MD HollandMD COVID-19 (TWIN-CoV-2) PCR [id number] 04:29:24 Test Item Value Reference Interpretation Comments Range COVID19 SARS Pre-OR Procedure Indication (test code = 32946) COVID19 SARS Result Not Detected Not Detected (test code = 54989-8) COVID19 SARS SARS-CoV-2 NOT Detected. Interpretation (test Reference Range: Not code = 53866) Detected Methodology: The Vargas RealTime SARS-CoV-2 assay is a qualitative real-time reverse speech therapy director polymerase chain reaction (power shovel engineer-PCR) test to detect RNA from SARS-CoV-2 in nasal, nasopharyngeal and oropharyngeal swabs from patients with signs and symptoms of infection who are suspected of COVID-19 by their health care provider. The Vargas RealTime SARS-CoV-2 performed on the Think Global000 System is a dual target assay with primers and probes for the RdRp and N genes. Results must be interpreted within the context of all relevant clinical and laboratory findings, and epidemiological risk factors. Positive results are indicative of the presence of SARS-CoV-2 RNA; clinical correlation with patient history and other diagnostic information is necessary to determine patient infection status. Positive results do not rule out bacterial infection or co-infection with other viruses. Negative results do not preclude SARS-CoV-2 infection and should not be used as the sole basis for patient management decisions. The Vargas RealTime SARS-CoV-2 assay is for in vitro diagnostic use under FDA Emergency Use Authorization only. Testing is limited to laboratories certified under the Clinical Laboratory Improvement Amendments of 1988 (CLIA), 42U.S.C. 263a, to perform high complexity tests. The Test was performed by the CLIA-certified, high-complexity Molecular Diagnostics Laboratory (MDL) at [facility] under the Food and Drug Administration (FDA) s Emergency Use Authorization. Factsheet for patients: https://[email or web address]/ AbbottFactSheetPatientsFact sheet for healthcare providers: [email or web address]/ AbbottFactSheetHCP Test performed by:[facility] Molecular Diagnostic [address] [place] [address] MD HollandLipid [id number] 18:32:36 Test Item Value Reference Range Interpretation Comments Chol (test code = 204 mg/dL <=199 H ATP III Cl assification 5283) of Total Choles terol Primary Target of Therapy (in mg/dL):<200 Tryenhhix232-33 9 Borderline high >=240 High Trig (test code = 218 mg/dL <=149 H ATP III Cl assification 7655) of Serum Trigly cerides Primary Target of Therapy (in mg/dL):<150 Apfklx895-764 Borderline high 200-499 High>=500 Very highNon-fa sting triglycerides > 200 mg/dL may be fo llowed up with a fasti ng Lipid Panel. Calculated LDL- C may be falsely decr eased when non-fastin g triglycerides > 200 mg/dL. HDL (test code = 5763) 41 mg/dL >=40 LDL (test code = 6123) 119 mg/dL <=100 H ATP I II Classification of LDL Choleste rol Primary Target of Therapy (in mg/dL):<100 Yqbjbax050-709 Near optimal/above -284 Borderline high 160-189 High>=190 Very high VLDL (test code = 44 mg/dL 7986) Lab Interpretation Abnormal (test code = 21121-3) [facility]On [id number] 17:50:23 Test Item Value Reference Range Interpretation Comments Ordered (test code = 6568) Test Added Test Needed (test code = 7604) lipid panel MD HollandX-ray Chest 2 [id number] 14:40:46No evidence of intrathoracic metastasis or acute cardiopulmonary disease. Interface, Radiology Results In - 03/13/2020 9:42 AM CDTFULL RESULT:Examination: Chest, 2 views, 03/13/2020 9:17 AM.Clinical History: Malignant neoplasm of endometriumDiabetes mellitus due to underlying condition with hyperglycemiaType II diabetes mellitus uncontrolledMixed hyperlipidemiaMorbid (severe) obesity due to excess caloriesSedentary lifestyle.Indication: Other:, preop; HTN, HLD, morbid obesity.Comparison: 02/14/2020.Technique: Posteroanterior, lateral, and dual- energy radiographs of the chest.Findings:The cardiomediastinal silhouette is unremarkable.No pulmonary nodule, mass or consolidation is seen. There are no pleural effusions. No pneumothorax.IMPRESSION:No evidence of intrathoracic metastasis or acute cardiopulmonary disease.MD HollandUrinalysis with Ouweprihkvr3587-56-41 16:11:55 Test Item Value Reference Range Interpretation Comments UA WBC (test code = 1 0- 2 /HPF 7904) UA RBC (test code = >182 0- 2 /HPF H 7891) UA Mucous (test code = TRACE TRACE /HPF 7887) UA Bacteria (test code NOT SEEN NOT SEEN /HPF = 7870) UA Squam Epi (test OCC OCC /HPF code = 7896) BENNETT (test code = BENNETT) Some reporting parameters within the Urinalysis test have changed due to the implementation of new instrumentation in the [facility] [place], allowing greater sensitivity of measurement. Urinalysis results reported by the [facility] using existing instrumentation, as well as Urinalysis testing performed manually or by backup methodology at the [facility] [place] will remain relatively unchanged. New reporting parameters and units will now be reported for all campuses. Lab Interpretation Abnormal (test code = 25519-2) MD HollandPartial Thromboplastin [id number] 15:41:47 Test Item Value Reference Range Interpretation Comments PTT (test code = 6773) 27.4 24.2- 36.0 second(s) MD HollandPT/[id number] 15:41:46 Test Item Value Reference Range Interpretation Comments PT (test code = 6746) 13.3 12.0- 14.3 second(s) INR (test code = 5973) 1.08 0.90-1.10 MD HollandHemoglobin [id number] 15:35:55 Test Item Value Reference Range Interpretation Comments A1C (test code = 4632) 10.3 % 4.3-5.6 H HbA1c values >=6.5% are diagnostic of diabetes mellitus.Diagno sis should be confi rmed by repeat testing.Therape utic Action suggeste d: >8.0% HbA1c; Go al oftherapy: <7.0 % HbA1c Lab Interpretation (test Abnormal code = 67904-6) MD HollandFractionated [id number] 15:31:06 Test Item Value Reference Range Interpretation Comments Bili Total (test <0.3 <=1.2 mg/dL Direct and indirect code = 5096) bilirubin will not be reported when T otal bilirubin resul t is <0.3 mg/dLIndocyanin e Green (ICG) may cause false ly elevated bilirubin resul ts. Total and direct bilirubi n must not be measured from s amples containing indo cyanine green. False el evation of total bilirubin can be seen in patients wit h IgG concentrations above 28 g/L. MD HollandGlomerular Filtration Ycaf9825-71-65 15:31:05 Test Item Value Reference Range Interpretation Comments eGFR-AA (test 142 >=60 mL/min/1.73 sq. Normal eGFR: >= 60 code = 8062) m mL/min/1.73 m2N ote: The eGFR is calcula silvino using the CKD-EPI equ ation. The eGFR declines w ith age. eGFR <60 mL/min /1.73 m2 is considered as " decreased". This equation s hould only be used for pat ients 18 and older. Acco rding to the National Ki dney Foundation's Ki dney Disease Outcome Quality Initiative (KDO QI) classification and 2012 Kidney Disease Improving Global Outcomes (KDIGO) Clinical Practi ce Guideline, the stage of CKD should be c ategorized based on estima silvino GFR. Stage Descripti on GFR mL/min/1.73 m21 Normal or high GFR >=902 Mildly de creased GFR 60-893a Mildly to moder ately decreased GFR 45-593b Moderately to s everely decreased GFR 30-444 Severely decrea sed GFR 15-295 Kidney failure <15 eGFR-LEYDI (test 123 >=60 mL/min/1.73 sq. Adrianna l eGFR: >= 60 code = 8063) m mL/min/1.73 m2N ote: The eGFR is calcula silvino using the CKD-EPI equ ation. The eGFR declines w ith age. eGFR <60 mL/min /1.73 m2 is considered as " decreased". This equation s hould only be used for pat ients 18 and older. Acco rding to the National dney Foundation's dney Disease Outcome Quality Initiative (KDO QI) classification and 2012 Kidney Disease Improving Global Outcomes (KDIGO) Clinical Practi ce Guideline, the stage of CKD should be c ategorized based on estima silvino GFR. Stage Descripti on GFR mL/min/1.73 m21 Normal or high GFR >=902 Mildly de creased GFR 60-893a Mildly to moder ately decreased GFR 45-593b Moderately to s everely decreased GFR 30-444 Severely decrea sed GFR 15-295 Kidney failure <15 MD HollandAlkaline [id number] 15:31:04 Test Item Value Reference Range Interpretation Comments Alk Phos (test code = 4768) 81 U/L 35-104 MD HollandAlbumin [id number] 15:31:03 Test Item Value Reference Range Interpretation Comments Albumin Lvl (test code = 4763) 4.4 3.5- 5.2 gm/dL MD HollandAspartate [id number] 15:31:02 Test Item Value Reference Range Interpretation Comments AST (test code = 4731) 18 U/L <=32 MD oHllandElectrolyte [id number] 15:31:01 Test Item Value Reference Range Interpretation Comments Sodium Lvl (test code = 7355) 138 136- 145 mEq/L Potassium Lvl (test code = 6854) 4.5 3.5- 5.1 mEq/L Chloride (test code = 5279) 102 98- 107 mEq/L CO2 (test code = 5227) 26 22- 29 mEq/L Anion Gap (test code = 9325) 10 4- 14 mEq/L MD Holland.Serum Tudcuvqwdd0466-92-64 15:31:00 Test Item Value Reference Range Interpretation Comments Creatinine (test code = 5399) 0.56 mg/dL 0.51-0.95 SkylerTotal [id number] 15:30:59 Test Item Value Reference Range Interpretation Comments Total Protein (test code = 7649) 7.8 g/dL 6.4-8.3 SkylerCalcium [id number] 15:30:58 Test Item Value Reference Range Interpretation Comments Calcium Lvl (test code = 5258) 9.7 mg/dL 8.4-10.2 [id number] 15:30:57 Test Item Value Reference Range Interpretation Comments ALT (test code = 4705) 27 U/L <=33 [id number] 15:30:56 Test Item Value Reference Range Interpretation Comments BUN (test code = 5055) 13 mg/dL 6-23 MD HollandGlucose [id number] 15:30:55 Test Item Value Reference Range Interpretation Comments Glucose Level (test code 261 mg/dL 70-99 H Ref erence range is = 5699) valid for fasti ng specimens only. Guidelines established by the [place] Diabet es Association guidelines (Standards of Medical Care in Diabetes 2016. Diabetes Care 2 016; 39: S13-22) are that a fasting gluco se of greater than or equal to 126 mg /dL or a random glu cose greater than or equal to 200 mg /dL with symptoms, that are confirmed b y repeat testing on a different day, meet the criteria fo r diabetes mellit us. Lab Interpretation (test Abnormal code = 35330-8) MD HollandUrinalysis with Owltbjcphed2212-16-59 15:29:19 Test Item Value Reference Range Interpretation Comments UA Color (test code = 7877) Yellow Yellow UA Appear (test code = 7868) Clear Clear UA Glucose (test code = 7881) >=500 NEG mg/dL A UA Bili (test code = 7871) NEG NEG UA Ketones (test code = 7884) NEG NEG mg/dL UA Spec Grav (test code = 7894) 1.025 1.002-1.035 UA Blood (test code = 7872) Large NEG A UA pH (test code = 7909) 5.0 4.5-8.0 UA Protein (test code = 7890) 100 mg/dL NEG A UA Urobilinogen (test code = 7903) NEG NEG UA Nitrite (test code = 7888) NEG NEG UA Leuk Est (test code = 7886) NEG NEG Lab Interpretation (test code = Abnormal 08672-0) MD HollandUrine [id number] 15:28:34 Test Item Value Reference Range Interpretation Comments U beta hCG Ql (test Negative Negative Very dil anvik urine code = 4181) specimens may c ause false negative result s. Suggest repeat in 48 ho urs with a first morning v oided urine or request poonam titative serum beta HCG test. MD HollandR[id number] 15:08:45 Test Item Value Reference Range Interpretation Comments Neutrophil % (test code = 70.0 % 42-66 H 6491) Lymphocyte % (test code = 22.1 % 24-44 L 6194) Monocyte % (test code = 6.3 % 2-7 6422) Eosinophil % (test code = 1.0 % 1-4 5520) Basophil % (test code = 0.3 % 0-1 5068) IGRE % (test code = 5958) 0.3 % 0-0.4 IG RE % count includes Metamyelocytes, Myelocytes, and Promyelocytes. Neutrophil Abs (test code 8.03 K/uL 1.7-7.3 H = 6492) Lymphocyte Abs (test code 2.53 K/uL 1-4.8 = 6195) Monocyte Abs (test code = 0.72 K/uL 0.08-0.7 H 6423) Eosinophil Abs (test code 0.12 K/uL 0.04-0.4 = 5521) Basophil Abs (test code = 0.03 K/uL 0-0.1 5069) IG Abs (test code = 5954) 0.04 K/uL 0-0.04 Lab Interpretation (test Abnormal code = 46765-2) MD Holland.[id number] 15:08:40 Test Item Value Reference Range Interpretation Comments WBC (test code = 8034) 11.5 K/uL 4-11 H RBC (test code = 6932) 4.62 4.00- 5.50 M/uL Hgb (test code = 5898) 12.1 12.0- 16.0 gm/dL Hct (test code = 5860) 38.5 % 37-47 MCV (test code = 6222) 83 fL 82-98 MCH (test code = 6220) 26.2 pg 27-31 L MCHC (test code = 31.4 31.0- 36.0 gm/dL 6221) RDW-SD (test code = 42.2 fL 35.1-46.3 6972) RDW-CV (test code = 13.9 % 12-15.5 6971) Platelet count (test 332 K/uL 140-440 code = 6832) MPV (test code = 6282) 10.5 fL 4-10.4 H INRBC (test code = 0.0 % <=0.0 The INRBC (instrument 5974) NRBC) value ref lects the enumeration of nucleated red b lood cells contained in a 200uL sampleof whole blood analyzed by the instrument. Thi s value maydiffer from the NRBC value reported in a m anual differential,wh ich is based on a 100 cell differential. Lab Interpretation Abnormal (test code = 58358-4) MD HollandTMP Interpretation Exception PreOp Hetrcxqsdt0476-43-74 14:20:26 Test Item Value Reference Interpretation Comments Range TMP Exception Patient's pre-op Type ____ (test code = and Screen [place] no 7543) evidence of RBC __FERNA alloantibody(ies). NDO CLINICAL INFORMATION SHAWN Z,Dictated PROVIDED BY THE by: [facility] ANA M MALLOY,Dictated PATIENT WOULD ALLOW Date/Fortino e: FOR THIS SAMPLE TO BE 2019 9:20 AM USED UP TO 30 DAYS FOR CDT Transcribed TYPE AND SCREEN FOR Date/Fortino e: SURGERY ONLY. 02.15.2020 9:2 0 AM CDTElectronical ly Signed By: ANDRES HARDY, on 02.15.2020 9:20 AM C MD HollandMagnesium [id number] 16:51:52 Test Item Value Reference Range Interpretation Comments Magnesium (test code = 6359) 1.6 mg/dL 1.6-2.6 MD [id number] 16:51:51 Test Item Value Reference Range Interpretation Comments TSH (test code = 7578) 0.99 0.27- 4.20 mcunit/mL MD Linares [id number] 16:51:50 Test Item Value Reference Range Interpretation Comments T4 Free (test code = 7502) 1.12 ng/dL 0.93-1.7 MD HollandThrombin [id number] 14:11:48 Test Item Value Reference Range Interpretation Comments Thrombin Time (test code = 7618) 17.2 14.5- 17.4 second(s) Hep Therapy (test code = 5879) No MD HollandUS Bjufribdcets1765-67-25 14:11:221. Echogenic vascular lesion of the endometrium is suggestive of an endometrial polyp and further correlation with MRI is recommended.2. Increased uterine myometrial vascularity may suggest underlying adenomyosis.3. Right ovarian corpus luteal cyst.4. Left ovarian simple cyst measuring up to 3.7 cm does not meet size criteria for further evaluation in this premenopausal patient. I Interface, Radiology Results In - 02/06/2020 9:13 AM CDTFULL RESULT:Examination: US TRANSVAGINAL on 02/04/2020 2:20 PMClinical History: Malignant neoplasm of endometriumAbnormal vaginal bleeding, not otherwise specifiedPresence of intrauterine contraceptive deviceMorbid (severe) obesity due to excess caloriesIndication: Other:, For IUD visualization, bleedingComparison: Pelvic MRI 12/19/2016Technique: Grayscale and color Doppler ultrasound of the pelvis.Findings:The uterus is retroverted. There is increased vascularity in the uterine myometrium. There is an echogenic vascular lesion associated with the endometrium which demonstrates a vascular stalk, which measures 1.3 x 1.3 x 1.4 cm. No intrauterine device is iden tified.Trace endocervical free fluid is present, as well as nabothian cysts.The right ovary measures4.7 x 2.4 x 3.1 cm (18.2 mL), and demonstrates a central cystic region, which is overall compatible with a corpus luteal cyst. The left ovary measures 4.8 x 3.6 x 3.7 cm (34.1 mL), and demonstrates a left ovarian simple cyst which measures 3.4 x 3.5 x 3.7 cm.No adnexal abnormalities are identified.IMPRESSION:1. Echogenic vascular lesion of the endometrium is suggestive of an endometrial polyp and further correlation with MRI is recommended.2. Increased uterine myometrial vascularity may suggest underlying adenomyosis.3. Right ovarian corpus luteal cyst.4. Left ovarian simple cyst measuring up to 3.7 cm does not meet size criteria for further evaluation in this premenopausal patient.IMD AndersonUS PELVIS [id number] 20:07:141. Echogenic vascular lesion of the endometrium is suggestive of an endometrial polyp and further correlation with MRI is recommended.2. Increased uterine myometrial vascularity may suggest underlying adenomyosis.3. Right ovarian corpus luteal cyst.4. Left ovarian simple cyst measuring up to 3.7 cm does not meet size criteria for further evaluation in this premenopausal patient. I personally reviewed these image(s) along with the resident's/fellow's interpretations, certify that if a procedure was performed I was physically present, and agree with the final report.Interface, Radiology Results In - 02/04/2020 3:09 PM CDTFULL RESULT:Examination: US PELVIS LIMITED on 02/04/2020 2:20 PMClinical History: Malignant neoplasm of endometriumAbnormal vaginal bleeding, not otherwise specifiedPresence ofintrauterine contraceptive deviceMorbid (severe) obesity due to excess caloriesIndication: Other:, For IUD visualization, bleedingComparison: Pelvic MRI 12/19/2016Technique: Grayscale and color Doppler ultrasound of the pelvis.Findings:The uterus is retroverted. There is increased vascularity in the uterine myometrium. There is an echogenic vascular lesion associated with the endometrium which demonstrates a vascular stalk, which measures 1.3 x 1.3 x 1.4 cm. No intrauterine device is identified.Traceendocervical free fluid is present, as well as nabothian cysts.The right ovary measures 4.7 x 2.4 x 3.1 cm (18.2 mL), and demonstrates a central cystic region, which is overall compatible with a corpusluteal cyst. The left ovary measures 4.8 x 3.6 x 3.7 cm (34.1 mL), and demonstrates a left ovarian simple cyst which measures 3.4 x 3.5 x 3.7 cm.No adnexal abnormalities are identified.IMPRESSION:1. Echogenic vascular lesion of the endometrium is suggestive of an endometrial polyp and further correlation with MRI is recommended.2. Increased uterine myometrial vascularity may suggest underlying adenomyosis.3. Right ovarian corpus luteal cyst.4. Left ovarian simple cyst measuring up to 3.7 cm doesnot meet size criteria for further evaluation in this premenopausal patient.I personally reviewed these image(s) along with the resident's/fellow's interpretations, certify that if a procedure was performed I was physically present, and agree with the final report.MD HollandPathology Biopsy [id number] 18:19:00 Test Item Value Reference Range Interpretation Comments Diagnosis (test code = 34) f9xqiAMcNAHbfWN5HWP qMZElx9oio3KegRPoiM BnVWwpeHIudfHdny12u EH4dX89BJ8pFTWrAoL1 RDNxprV2Omw4JFSkTVK unRQqX644v9rdh5wtjv KclXA9yEnbJNPoZKVfB NofTSQkUyCtLB1kCD6T I34QMTYBXE33CJImxbb vlXiiGFjhbH17NyLzSv ApQ71cniNsIK1tOLueF FO0yAExXDVpIJ6qBPUl qAJfVjJjB5RyRBOtuJ9 foxKyKQiayG2gUHMnAS 0aXTX9zCOhoOAfnNu3r GVsaXVtIHdpdGggbWlj ue6wwHEmZKKjRIWluCy wZXJwbGFzaWEuXHBhci AgXHBhclxsaTBcbGluM CBFREUvSldccGFyfQ== Comment (test code = 9835) d4gbqXTqVBLflGD7IHR pUGPbh5ohi1BhyTEjlP JfXOedzYRidxRhnj47s BH7mN11RR8qFEKhCrN5 JGQwzvJ6Ipc2GXZdBCM qvZSqL786b8vie2fysc IvzUA5oLaoPJIhKAIkN VnlODPgRcGxM1ljccic vtQtcYFzR8JeCDQ0lGL oIGFuIElVRCBpbiBwbG FxMBCvrzHnx46vsVX7D MJtsFufqGTjk2VlqH7v XHBhcn0= Gross Description (test f3kgvUYiBXWyd6slMQU code = [id number]) vNmNzIMVIs3sek316hS XnIVnhDlFcOjY9sNMiR VZmkWLxv1X9XEdboAUl AjSHuqicmWg4h6qzE2o nwm4sMH8aYmSwSCDfOL QwXGZwcnEyIFRpbWVzI P9texIUd73aakb6q5ga IMnqdJ8qSJWbPGMuoUU hv2P3GXejnOCtVERKu8 VjqBMiOG4phel6d7kwW Etqg3vbm6UoRvIwQCIv ZXQwXGZwcnEyIEFyaWF aLM7pjvBdejc2a5ejPM LzYn5yJHYzoojuJ2fyn zLzoEPkSgVwcHFoK877 mfqidjm5t6liHZXoKx1 cpFeqI3gudgGalCRqPo BycTIgVHJveSBNaWNyb tPosII3mZacSwWnXGPg r68uciztI0tndpChzJG dPlTjpCFfH5pyEt4rG5 86NTOtTRrja8xti3NoC mNoYXJzZXQwXGZwcnEy SJUiY09dJPRHC588TRT pWNGeGPIiv7qho5aeG4 hhcnNldDBcZnBycTIgQ ATzNLh5mQ2Pt1kzb4tn cvTsyYD3WBSxATUcH4R hVD5nOHMqhTLrC9mvYK NlVTjwfbIqkmH5WVGyg YGbAGuctcCtAhSbG8Gj FF1vNVqaiRHsUiR1OOR sZNH6TThoQKMgOGljRr o2ZEH6O3itMGZ6A6iuy pLjotYcGCCmfQO1Xjze czLkWsqfM4WfSN87BEu ypKXeClb8GILxSXo3IJ edNGQwAKSaRiy5RKb4S 6vaUPJgCBJxS4CnAU9v LGXqUjm5MZTjNErgtmB kIHE4TSduDZNzUKO7SD EqjTHqNhg7BLQgEHM9Y 4zoghXbcvH9T8wguPLy UZSaN6buIXBlHLdqB7W jQB4fRMnbFaa7QSP8QJ izwyIqJAr9XDgeWRNvE Tv2FEYmlJJyVlO3CSLf CHD7BJatfoQhlrD6JBc wjOZoELewD5yuYRNtUG njF4WkAQ3gEHspOdg5E TIwNztccmVkMjIzXGdy ZWVuMjIzXGJsdWUyMjM 7XHJlZDIzOVxncmVlbj JyWWjyhQAgGfY7F2roB BAsIEMbJ5MvZF5cRFXu Ioo1FNM4PEyzlaTnPYa hwiPerhXwFnv7SIR9OB c4Avtoz9K3yUPyeKCkc HtcczEgaGVhZGluZyAx E104ZTXwDEwbGEEsgcr rNid9s3fcUpLlJFAccG 7qVBD0nEeowjRtvODiB AjcHyV0G331DAC7HAva TCSjdwnbVLo6o8amNaC qZQCirQ3fQZH7yZ0EFn foJUOsdgxjXRf3KKymZ TFyfssqNfK4SLmpSTMg zRy6SAblVGSwbmG2Eac tYXJndDcyMFxtYXJnYj mbZQacSWReHRM3DkVrM BUcv4Fqajp5YySiDcHp GPEXBplgmZJgFZD3EIM 0ZjFcZXBpYzkxMDFcYW 0hrZtonPo8rDvbTBLor tS0kRKmNKtla9pfLNR9 o3jpqoenYOXiEGvwCg2 udHRibHtcZjAgQXJpYW y7oL44ODHwcQ3vmTFoT Vd2KENvodNniLhjkY5x ZnMyMCBBLiBFTkRPTUV UUklVTTogVGFuLCBtdW LqdTAruXocs9PeUNmeI FmxHvH2LGXfEkCjpBmg TT25aEGktKath3HhmYy 8uSPyASwpUGAyYD6jLV pkgj30SXL8ABVxd3UqG 4EePFXHRXKqr8WyS1Jx IFxwbGFpblxmczIyXHB one1zjESyyKc5 Disclaimer (test code = [id number]) oACHeZBAde5qxIMUzvT FuZzEwMzNcZnRuYmpcd TCrEFHzHzQgq2kyx508 lGGsa1ffPJScUeD5eBX aUJCjvDZlN868YYSaYH bhc8eon5FhIFUxsHCht 2I4SZFBepyjxTp9aZzw R26cx3E3ZrzeT7duZVW iWSZhL4SlKV1aCFKeIt z5WWH3SYV4NIKwKBEmA 8BtFJ6qQMRgrSFfYIa1 n3opdWwbFGBeLYA1s6n sZBxqfqXsFD5xmv1ipV h8q5cjgjSmITLzLUFek HYKYXMqY3SwhTkwJr2n dHg3sWmoKdtkKOG6Cbr 4NW1fof65ika7xQawSD AkcsfyHmS1RGjiZIThs dfmTMx9YYgdDRHioEM6 CTGfpYVkX3FcHYCtOS3 frsu6QCD3XDfmCLNtWi J4ESPyeTYrIARreWbnQ Tbwt638DMF3ZdGxHY7o X5Llu6A8kU5bbCIzSSX iqYPyToXmFSOusv8izY OiOLydw7DcPOH2edQ6p SAavZAiYVNdMI53Yohd t4FhZqrwKOD5YLUryxZ wb9Atp2bhNkTdyyRfY3 qnX8UyAEIsHOZeXDLvB qEpxvEbw7Rlz9UofGJd eXd8u4rxTBJcNLGqcPz xa1ibWTU0VKByH0F0rB Urp6bvZBhiJFVmaNJ0g vJ2YCEskVQiC0ZioR7g IDRsZB3ioom8y8liCWK 3OAezEOTwUmV7cqG9MO BcaGVhZGVyeTcyMFxmb 539MKF8CxYqWTApy7Es I9QsxCyfX40krFfzH89 vHTZwcRfieZ7fsKzrtH 5cZjBcZnMyNFxxbFxwb MSkclmeCUhdaxX0NOgh aptgJXUoQKwbK4jrQxW vDNXraZckVQpnb3EeGF OdJOHzPqbtevL5PKETx 39wRAEut8GqVEDfyF3d mPIyJRawxqPhzNE9DKp hdmUgYmVlbiBkZXZlbG 2aSUSyYY8pGGPlxhTak e7ungZcFTNjEFKlF8Fr cmlzdGljcyBkZXRlcm1 fojNkKUP6EYCPDV2UAH GqSNPum64sPABesObwk S3luVGuotJbDHDam5Iy zY6zgSCMIEOyM5whGR9 tLNqde6SciQGnpGVjsA P6UAIji9SgFmSwafEvx BFayWLhU1TcbNxqX3uk LWJaRKJdvvKviXNoc7G hDZBxcMI1uVCaFN6BSd DWx32bGALpXANIviKvN RTflGotrGT0ysY7vP0v LiBJZiBhcHBsaWNhYmx sBVFat185xp3zeyN6YO ZkOFWcrkxba9UkCJYdO PWpbP30NCSvJZVwxq3c lnjryEOnolUuH7Eivge 5yQ2bFSGfEToySMEuNK ZzMjJcbGFuZzEwMzNca GljaFxmMVxkYmNoXGYx FSakH8bwHdRvWtHoReu wYXJ9 MD Holland
[2020-07-01 14:29] LABS: Absolute Lymphocytes (CBC) 2.1 K/uL (0.7-4.9); Basophils % 0.2 % (0-1.3); Hematocrit 36.2 % (36.0-45.0); Lymphocytes % 27.3 % (15.3-44.8); MPV 8.1 fL (7.6-11.3); RBC Red Blood Cell Count 4.71 M/uL (3.86-4.86)
[2020-07-01] MEDS ORDERED: BENZONATATE 100 MG CAP PO ONE (14:29)
[2020-07-01 14:33] LABS: Protime INR 1.06
--- NOTE | 2020-07-01 15:09 | RAD REPORT ---
EXAM DESCRIPTION: RAD - Chest Single View - 07/01/2020 2:15 pm CLINICAL HISTORY: Chest pain;SOB Chest pain. COMPARISON: Chest Single View dated 10/15/2016; CHEST PA AND LAT 2 VIEW dated 09/17/2015 FINDINGS: Portable technique limits examination quality. Mild interstitial prominence is present suggesting viral pneumonitis/ bronchitis. The heart is normal in size. No displaced fractures.
[2020-07-01 15:10] LABS: ALT/SGPT 25 U/L (12-78); AST/SGOT 17 U/L (15-37); Albumin 3.4 g/dL (3.4-5.0); Alkaline Phosphatase 89 U/L (45-117); BUN Blood Urea Nitrogen 10 mg/dL (7-18); Bicarbonate 31 mmol/L (21-32); Bilirubin Direct < 0.1 mg/dL (0-0.2); Bilirubin Total 0.2 mg/dL (0.2-1.0); Glucose Level 119 mg/dL (74-106); Magnesium 1.8 mg/dL (1.8-2.4); NT PRO-BNP 15 pg/mL (<125); Potassium 3.8 mmol/L (3.5-5.1); Protein, Total 8.1 g/dL (6.4-8.2); Sodium Level 139 mmol/L (136-145); Troponin (Emerg Dept Use Only) 0.03 ng/mL (0.0-0.045)
--- NOTE | 2020-07-01 15:51 | ER ---
Nurse's Notes [facility] Name: Jass Dukes Age: 34 yrs Sex: Female : 1985 Arrival Date: 07/01/2020 Time: 12:11 Bed 18 Private MD: Diagnosis: Coronavirus infection, unspecified;Pneumonia due to other specified infectious organisms Presentation: 07/01 12:22 Chief complaint: Patient states: Sick with cough, fatigue since 06/22. Test positive dm5 for covid . Came today for SOB for 2 days, O2 sat. 97-99% at home. Fever 100.3 at home. Coronavirus screen: Client denies travel out of the [place] in the last 14 days. congestion, cough unrelated to allergies, fatigue, Client presents with at least one sign or symptom that may indicate coronavirus-19. Standard/surgical mask placed on the client. Client reports previous positive COVID test result. Ebola Screen: Patient denies travel to an Ebola-affected area in the 21 days before illness onset. Initial Sepsis Screen: Does the patient meet any 2 criteria? HR > 90 bpm. No. Patient's initial sepsis screen is negative. Does the patient have a suspected source of infection? Yes: Productive cough/pneumonia. Risk Assessment: Do you want to hurt yourself or someone else? Patient reports no desire to harm self or others. Onset of symptoms was June 22, 2020. 12:22 Method Of Arrival: Ambulatory dm5 12:22 Acuity: ANNITA 3 dm5 Triage Assessment: 13:15 Respiratory: Onset: The symptoms/episode began/occurred about two days, the patient has vg1 mild shortness of breath. Historical: - Allergies: 12:22 Bactrim; dm5 12:22 PENICILLINS; dm5 - PMHx: 12:22 Hypertension; endometrial lining CA; Diabetes - IDDM; dm5 - PSHx: 12:22 Ear Tubes; D \T\ C; dm5 - Immunization history:: Flu vaccine is not up to date. - Social history:: Smoking status: Patient denies any tobacco usage or history of. Screenin:15 Abuse screen: Denies threats or abuse. Nutritional screening: No deficits noted. vg1 Tuberculosis screening: No symptoms or risk factors identified. Fall Risk None identified. Assessment: 13:13 General: Appears in no apparent distress. comfortable, Behavior is calm, cooperative. vg1 Pain: Complains of pain in chest Pain currently is 6 out of 10 on a pain scale. Neuro: Level of Consciousness is awake, alert, obeys commands, Oriented to person, place, time, situation. Respiratory: Reports shortness of breath on exertion cough that is productive, Airway is patent Respiratory effort is even, unlabored, Respiratory pattern is regular, symmetrical. GI: No signs and/or symptoms were reported involving the gastrointestinal system. : No signs and/or symptoms were reported regarding the genitourinary system. EENT: No signs and/or symptoms were reported regarding the EENT system. Derm: Skin is intact, is healthy with good turgor. Musculoskeletal: Circulation, motion, and sensation intact. 13:15 Respiratory: Breath sounds are clear bilaterally. vg1 14:24 Reassessment: Patient appears in no apparent distress at this time. Patient is alert, vg1 oriented x 3, equal unlabored respirations, skin warm/dry/pink. Patient denies pain at this time. Vital Signs: 12:22 BP 149 / 100; Pulse 112; Resp 18; Temp 99.8; Pulse Ox 98% ; Weight 136.08 kg; Height 5 dm5 ft. 4 in. (162.56 cm); Pain 3/10; 13:14 BP 140 / 86; Pulse 113; Resp 20; Pulse Ox 98% on R/A; vg1 14:00 BP 123 / 76; Pulse 100; Resp 20; Pulse Ox 95% on R/A; vg1 15:00 BP 131 / 79; Pulse 96; Resp 18; Pulse Ox 97% on R/A; vg1 12:22 Body Mass Index 51.49 (136.08 kg, 162.56 cm) dm5 ED Course: 12:11 Patient arrived in ED. ds1 12:21 Arm band placed on. dm5 12:24 Triage completed. dm5 13:06 Sirisha Romano, RN is Primary Nurse. vg1 13:15 Patient has correct armband on for positive identification. Bed in low position. Call vg1 light in reach. 13:20 Favio Lynch PA is PHCP. cp 13:20 Albert Zuluaga MD is Attending Physician. cp 14:15 Initial lab(s) drawn, by me, sent to lab. Inserted saline lock: 20 gauge in left dh3 antecubital area, using aseptic technique. Blood collected. 14:16 Chest Single View In Process Unspecified. EDMS 14:20 EKG done, by ED staff, reviewed by Favio STILL. [facility] 16:03 No provider procedures requiring assistance completed. IV discontinued, intact, vg1 bleeding controlled, No redness/swelling at site. Pressure dressing applied. Administered Medications: 14:24 Drug: Tessalon Perle 200 mg Route: PO; vg1 15:45 Follow up: Response: Marked relief of symptoms vg1 Outcome: 15:51 Discharge ordered by . anish 16:03 Discharged to home ambulatory. vg1 16:03 Condition: stable 16:03 Discharge instructions given to patient, Instructed on discharge instructions, follow up and referral plans. medication usage, Demonstrated understanding of instructions, follow-up care, medications, Prescriptions given X 4. 16:04 Patient left the ED. vg1 Signatures: Dispatcher [employer] EDTN Barbara Argueta, PETER RN dm5 Madai Mccoy 1 Favio Lynch PA PA cp Herrera, Deanna 3 Sirisha Romano, RN RN vg1
--- NOTE | 2020-07-01 15:52 | EDPHYS ---
Physician Documentation [facility] Name: Jass Dukes Age: 34 yrs Sex: Female : 1985 Arrival Date: 07/01/2020 Time: 12:11 Bed 18 Private MD: ED Physician Albert Zuluaga HPI: 07/01 13:50 This 34 yrs old Female presents to ER via Ambulatory with complaints of cp Covid+, Breathing Difficulty. 13:50 The patient or guardian reports cough, that is intermittent, shortness of breath. cp 13:50 Onset: The symptoms/episode began/occurred 2 day(s) ago. Associated signs and symptoms: cp Pertinent positives: chest pain, with cough, Pertinent negatives: diarrhea, fever, vomiting. Patient reports being diagnosed with COVID-19 on 06-24-2020. Patient reports she finished prescribed Zithromax and oral steroids. Cough and shortness of breath has worsened past 2 days. Historical: - Allergies: 12:22 Bactrim; dm5 12:22 PENICILLINS; dm5 - PMHx: 12:22 Hypertension; endometrial lining CA; Diabetes - IDDM; dm5 - PSHx: 12:22 Ear Tubes; D \T\ C; dm5 - Immunization history:: Flu vaccine is not up to date. - Social history:: Smoking status: Patient denies any tobacco usage or history of. ROS: 14:00 Constitutional: Negative for body aches, chills, fever, poor PO intake. cp 14:00 Eyes: Negative for injury, pain, redness, and discharge. cp 14:00 ENT: Negative for ear pain, sore throat, difficulty swallowing, difficulty handling secretions. 14:00 Cardiovascular: Positive for chest pain, with cough. 14:00 Respiratory: Positive for cough, shortness of breath, on exertion. Negative for wheezing. 14:00 Abdomen/GI: Negative for abdominal pain, nausea, vomiting, and diarrhea. 14:00 Neuro: Negative for altered mental status, headache, syncope, weakness. 14:00 All other systems are negative. Exam: 14:05 Constitutional: The patient appears in no acute distress, alert, awake, cp non-diaphoretic, non-toxic, well developed, well nourished, obese. 14:05 Head/Face: Normocephalic, atraumatic. cp 14:05 Eyes: Periorbital structures: appear normal, Conjunctiva: normal, no exudate, no injection, Sclera: no appreciated abnormality, Lids and lashes: appear normal, bilaterally. 14:05 ENT: External ear(s): are unremarkable, Nose: is normal, Posterior pharynx: Airway: no evidence of obstruction, patent. 14:05 Chest/axilla: Inspection: normal, Palpation: is normal, no crepitus, no tenderness. 14:05 Cardiovascular: Rate: tachycardic, Rhythm: regular, Edema: is not appreciated, JVD: is not appreciated. 14:05 Respiratory: the patient does not display signs of respiratory distress, Respirations: normal, no use of accessory muscles, no retractions, labored breathing, is not present, Breath sounds: bronchial sounds, that are mild, are heard diffusely, decreased breath sounds, are not appreciated, wheezing: is not appreciated. 14:05 Abdomen/GI: Exam negative for discomfort, distension, guarding, Inspection: obese 14:05 Back: pain, is absent, ROM is normal. 14:05 Neuro: Orientation: to person, place \T\ time. Mentation: is normal. 14:25 ECG was reviewed by the Attending Physician. cp Vital Signs: 12:22 BP 149 / 100; Pulse 112; Resp 18; Temp 99.8; Pulse Ox 98% ; Weight 136.08 kg; Height 5 dm5 ft. 4 in. (162.56 cm); Pain 3/10; 13:14 BP 140 / 86; Pulse 113; Resp 20; Pulse Ox 98% on R/A; vg1 14:00 BP 123 / 76; Pulse 100; Resp 20; Pulse Ox 95% on R/A; vg1 15:00 BP 131 / 79; Pulse 96; Resp 18; Pulse Ox 97% on R/A; vg1 12:22 Body Mass Index 51.49 (136.08 kg, 162.56 cm) dm5 MDM: 15:51 Patient medically screened. cp 15:51 Data reviewed: vital signs, nurses notes, lab test result(s), EKG, radiologic studies, cp plain films. 15:51 Differential diagnosis: bronchitis, flu, URI, pulmonary embolism. Test interpretation: cp by ED physician or midlevel provider: ECG, plain radiologic studies. Counseling: I had a detailed discussion with the patient and/or guardian regarding: the historical points, exam findings, and any diagnostic results supporting the discharge/admit diagnosis, lab results, radiology results, the need for outpatient follow up, a family practitioner. ED course: VSS. No signs of respiratory distress and patient appears non-toxic. Oxygen sats remain above 90% on RA. Will discharge to home for continued monitoring. 07/01 13:46 Order name: Basic Metabolic Panel; Complete Time: 15:36 cp 07/01 15:36 Interpretation: Normal except: GLUC 119. cp 07/01 13:46 Order name: CBC with Diff; Complete Time: 15:36 cp 07/01 15:36 Interpretation: Normal except: HGB 11.9; MCV 76.8; MCH 25.2; RDW 15.7. cp 07/01 13:46 Order name: LFT's; Complete Time: 15:36 cp 07/01 13:46 Order name: Magnesium; Complete Time: 15:36 cp 07/01 13:46 Order name: NT PRO-BNP; Complete Time: 15:36 cp 07/01 13:46 Order name: PT-INR; Complete Time: 15:36 cp 07/01 13:46 Order name: Troponin (emerg Dept Use Only); Complete Time: 15:36 cp 07/01 13:47 Order name: D-Dimer; Complete Time: 15:36 cp 07/01 13:46 Order name: XRAY Chest (1 view) cp 07/01 13:46 Order name: EKG; Complete Time: 13:48 cp 07/01 13:47 Order name: EKG - Nurse/Tech; Complete Time: 14:32 cp 07/01 13:47 Order name: IV Saline Lock; Complete Time: 14:33 cp 07/01 13:47 Order name: Labs collected and sent; Complete Time: 14:33 cp 07/01 13:47 Order name: O2 Per Protocol; Complete Time: 14:33 cp 07/01 13:47 Order name: O2 Sat Monitoring; Complete Time: 14:33 cp 07/01 13:47 Order name: Urine Dipstick-Ancillary (obtain specimen); Complete Time: 14:32 cp 07/01 13:47 Order name: Urine Test (obtain specimen); Complete Time: 14:32 cp 07/01 13:50 Order name: Chest Single View; Complete Time: 15:36 EDMS 07/01 13:50 Order name: EKG Electrocardiogram [facility] 07/01 14:33 Order name: Urine Dipstick--Ancillary (enter results) bd 07/01 14:33 Order name: Urine --Ancillary (enter results) bd EC:25 Rate is 106 beats/min. Rhythm is regular. IA interval is normal. QRS interval is cp normal. QT interval is normal. Interpreted by me. Reviewed by me. Administered Medications: 14:24 Drug: Tessalon Perle 200 mg Route: PO; vg1 15:45 Follow up: Response: Marked relief of symptoms vg1 Disposition: 07/02 07:05 Co-signature as Attending Physician, Albert Zuluaga MD I agree with the assessment and kdr plan of care. Disposition: 07/01/20 15:51 Discharged to Home. Impression: Coronavirus infection, unspecified, Pneumonia due to other specified infectious organisms. - Condition is Stable. - Discharge Instructions: Community-Acquired Pneumonia, Adult, COVID-19. - Prescriptions for cefdinir 300 mg Oral capsule - take 1 capsule by ORAL route every 12 hours for 10 days; 20 capsule. dexamethasone 2 mg Oral tablet - take 1 tablet by ORAL route 3 times per day for 5 days; 15 tablet. Tessalon Perles 100 mg Oral Capsule - take 2 capsule by ORAL route every 8 hours As needed; 30 capsule. Albuterol Sulfate 90 mcg/actuation - inhale 1-2 puff by INHALATION route every 4-6 hours; 1 Inhaler. - Medication Reconciliation Form, Thank You Letter, Antibiotic Education, Prescription Opioid Use form. - Follow up: Private Physician; When: 2 - 3 days; Reason: Recheck today's complaints. - Problem is new. - Symptoms have improved. Signatures: Dispatcher [employer] EDW[facility] Barbara Argueta, RN RN dm5 Albert Zuluaga MD MD kdr Page, Corey, PA PA cp Garcia, Victoria RN RN vg1 Corrections: (The following items were deleted from the chart) 07/01 13:50 13:49 Basic Metabolic Panel ordered. [facility] EDMS 13:50 13:49 CBC with Automated Diff ordered. EDMS EDMS 15:11 13:50 Liver (Hepatic) Function ordered. EDMS EDMS 15:11 13:50 Magnesium ordered. EDMS EDMS 15:11 13:50 NT PRO-BNP ordered. [facility] 15:11 13:50 Troponin (Emerg Dept Use Only) ordered. [facility] 16:04 15:51 07/01/2020 15:51 Discharged to Home. Impression: Coronavirus infection, vg1 unspecified; Pneumonia due to other specified infectious organisms. Condition is Stable. Forms are Medication Reconciliation Form, Thank You Letter, Antibiotic Education, Prescription Opioid Use. Follow up: Private Physician; When: 2 - 3 days; Reason: Recheck today's complaints. Problem is new. Symptoms have improved. cp
[2020-07-01 16:50] VITALS: TEMP 99.8
[2020-07-01 16:53] LABS: Urine Blood TRACE (NEG); Urine Glucose NEGATIVE (NEG); Urine Protein 1+ (NEG); Urine Specific Gravity 1.025 (1.005-1.030); Urine pH 5.5 (5.0-7.0)
[2020-07-01 16:54] VITALS: BP 131/79; O2SAT 97
== END 2020-07-01 16:04 | disposition home or self-care (01) ==
LOC: ER 12:07
DX: U07.1 COVID-19 (principal); J12.82 Pneumonia due to coronavirus disease 2019; I10 Essential (primary) hypertension; Z85.89 Personal history of malignant neoplasm of other organs and systems; Z88.0 Allergy status to penicillin; Z88.1 Allergy status to other antibiotic agents
CPT/HCPCS: 36415; 71045; 80048; 80076; 81003; 81025; 83735; 83880; 84484; 85025; 85379; 85610; 93005; 99284

== ENCOUNTER 2023-06-06 17:09 | Emergency (ER) | payer BC ==
--- OUTSIDE RECORDS SUMMARY | 2023-06-06 17:12 | XMS REPORT | Clinical Summary ---
Author Name Unknown Organization [facility] [place] Address [address] [place] [address] Care Team Providers Care Line Crewman Name Role Phone Sandra Reis MD Primary Care Provider [phone] Nazario Barros MD Unavailable Jana Gamble MD Unavailable Baylee Del Real MD Unavailable [phone] Panchito Narayan MD Unavailable Allergies Active Allergy Reactions Criticality Noted Date Comments Sulfamethoxazole-Trimethoprim 2016 Penicillins Anaphylaxis High 11/09/2016 Medications Medication Sig Dispensed Refills Start Date End Date Status blood-glucose meter kitIndications:Roselyn betes mellitus without mention of complication, type II or unspecified type, uncontrolled Use to check blood glucose as directed. 1 each 1 02/14/20 20 Active insulin aspart U-100 (NovoLOG Flexpen U-100 Insulin) 100 unit/mL (3 mL) insulin penIndications:Typ e 2 diabetes mellitus with hyperglycemia Inject 15-25 Units under the skin 3 (three) times a day before meals. Take before meals as per the instructions provided 30 mL 12/17/19 21 Active insulin glargine (LANTUS SOLOSTAR) 100 unit/mL (3 mL) insulin penIndications:Typ e 2 diabetes mellitus with hyperglycemia Inject 23 Units under the skin twice daily. 15 mL 11 12/17/19 21 Active BD Sharon 2nd Gen Pen Needle 32 gauge x " ndleIndications:Di abetes mellitus without mention of complication, type II or unspecified type, uncontrolled USE 4 TIMES DAILY 200 each 3 03/03/20 21 Active fenofibrate micronized (LOFIBRA) 134 mg capsuleIndications :Mixed hyperlipidemia Take 1 capsule (134 mg) by mouth every morning before breakfast. 90 capsule 3 03/31/20 21 Active empagliflozin (Jardiance) 10 mg tabIndications:Typ e 2 diabetes mellitus with hyperglycemia Take 10 mg by mouth every morning before breakfast. 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 100 strip 11 05/10/20 Active flash glucose sensor (FreeStyle Catrachita 14 Day Sensor) kitIndications:Typ e 2 diabetes mellitus with hyperglycemia,half-way current use of insulin 1 kit by miscellaneous route daily. For blood glucose monitoring at least 4 times daily. Change sensor every 14 days. 3 kit 11 05/10/20 Active megestrol (MEGACE) 40 mg tabletIndications: Malignant neoplasm of endometrium,Presen ce of intrauterine contraceptive device,Complex atypical endometrial hyperplasia Take 2 tablets (80 mg) by mouth twice daily. 60 tablet 6 11/20/19 22 Active Additional Information Patient not taking.Reported on 11/11/2022 hydroCHLOROthiazid e (HYDRODIURIL) 25 mg tabletIndications: Hypertension Take 1 tablet (25 mg) by mouth every morning. 180 tablet 1 04/29/20 22 Active Additional Information Patient not taking.Reported on 11/11/2022 lisinopril (PRINIVIL,ZESTRIL) 40 mg tabletIndications: Hypertension Take 1 tablet (40 mg) by mouth every morning. 90 tablet 3 04/29/20 22 Active Additional Information Patient not taking.Reported on 11/11/2022 amLODIPine (NORVASC) 5 mg tabletIndications: Hypertension TAKE 1 TABLET BY MOUTH TWICE A DAY 180 tablet 1 10/26/19 23 Active Additional Information Patient not taking.Reason: Not available, Reported on 11/11/2022 amLODIPine (NORVASC) 5 mg tabletIndications: Hypertension Take 1 tablet (5 mg) by mouth twice daily. 180 tablet 1 04/29/20 22 023 Discontinued atorvastatin (Lipitor) 10 mg tabletIndications: Hypertension Take 1 tablet (10 mg) by mouth at bedtime. 90 tablet 2 06/09/20 22 023 Discontinued(Ot her/Not Applicable) Active Problems Problem Noted Date Diagnosed Date Complex atypical endometrial hyperplasia 021 Excessive and frequent menstruation with irregul ar cycle 10/23/2020 Positive cervical high risk HPV DNA test 021 half-way current use of insulin 04/23/2020 Type II diabetes mellitus uncontrolled 0 Sedentary lifestyle 02/16/2020 Hyperlipidemia 10/28/2018 Type 2 diabetes mellitus with hyperglycemia 02/25 Presence of intrauterine contraceptive device Hypertension 12/29/2016 Hyperglycemia 12/21/2016 Malignant neoplasm of endometrium 11/23/2016 Cancer Staging:Clinical stage from 12/26/2016:Stage IA(Primary) - Signed by Sandra Reis MD on 02/03/2017 Morbid (severe) obesity due to excess calories 0 11/10/2016 Chronic iron deficiency anemia secondary to bloo d loss 11/10/2016 Encounters Date Type Department Care Team Description 01/14/2023 Refill [facility] [place] - Gynecology [address] [place] [id number] Haley Lozada PA Malignant neoplasm of endometrium; Presence of intrauterine contraceptive device; Complex atypical endometrial hyperplasia 12/29/2022 Telephone [facility]ocrine [facility] [address] [place] [address], [facility] [place] [address] Bronwyn Smith RN 11/11/2022 9:30 AM CDT Follow-Up MD [facility] [place] - Gynecology [address] [place] [address] Sandra Reis MD Malignant neoplasm of endometrium (Primary Dx); Complex atypical endometrial hyperplasia; Presence of intrauterine contraceptive device 11/11/2022 Documentation Gynecologic Oncology Center [facility], 6th [place] [address] Sandra Reis MD 11/11/2022 Travel 10/31/2022 1:00 PM CDT Telemedicine Endocrine [facility] [address] [place] [address], 6th [place] [address] Hong Bains APRN Jacob, Manju, APRN Type 2 diabetes mellitus with hyperglycemia; Morbid obesity; Mixed hyperlipidemia; Hypertension; 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 10/31/2022 Documentation Endocrine Center [address] [place] [address] Main [facility], 6th [place] [address] Stephanie Ritter, RN 10/28/2022 Documentation Endocrine Center [address] [place] [address] Main [facility], 6th [place] [address] Stephanie Ritter, RN 10/24/2022 Refill Internal Medicine Center [address] [place] [address], 9th [place] [address] Karan Marie APRN Hypertension 10/05/2022 Telephone Internal [facility] Center [address] [place] [address], 9th [place] [address] Shantel Cui MA Appointment 09/20/2022 Refill [facility] [place] - Gynecology [address] [place] [address] Haley Lozada PA Malignant neoplasm of endometrium; Presence of intrauterine contraceptive device; Complex atypical endometrial hyperplasia 07/05/2022 Telephone [facility] [address] [place] [address], 9th [place] [address] Tracy Ferguson MA Appointment 06/09/2022 9:30 AM [facility]URITIES BROKER Telemedicine Internal Medicine Center [address] [place] [address], 9th [place] [address] Karan Marie APRN Hypertension (Primary Dx); Mixed hyperlipidemia; Type 2 diabetes mellitus with hyperglycemia; Morbid (severe) obesity due to excess calories 06/09/2022 Orders Only Endocrine Center [address] [place] [address] Main [facility], 6th [place] [address] Hong Bains APRN Type 2 diabetes mellitus with hyperglycemia (Primary Dx); Morbid obesity; Mixed hyperlipidemia; Hypertension; half-way current use of insulin after 06/06/2022 Immunizations Name Administration Dates Next Due Pfizer SARS-CoV-2 Vaccination (Purple Cap) 02/21,01/28/2021 Surgical History Surgery Date Site/Laterality Comments WA DILATION & CURETTAGE DX&/THER NONOBSTETRIC 12/23/2016 Vagina /N/A Procedure: DILATION AND CURETTAGE, DIAGNOSTIC AND THERAPEUTIC (NONOBSTETRICAL); Surgeon: Sandra eRis MD; Location: MAIN OR; Service: PHYSICIAN VICE PRESIDENT - GYNECOLOGIC ONCOLOGY Medical devices from this surgery are in the Medical Devices section. WA INSERTION INTRAUTERINE DEVICE IUD 12/23/2016 Vagina /N/A Procedure: INSERTION OF INTRAUTERINE DEVICE; Surgeon: Sandra Reis MD; Location: MAIN OR; Service: PHYSICIAN VICE PRESIDENT - GYNECOLOGIC ONCOLOGY Medical devices from this surgery are in the Medical Devices section. WA LAPAROSCOPY W/RMVL ADNEXAL STRUCTURES 12/23/2016 Vagina /Left Procedure: SURGICAL LAPAROSCOPYWITH LEFT OVARIAN CYSTECTOMY; Surgeon: Sandra Reis MD; Location: MAIN OR; Service: PHYSICIAN VICE PRESIDENT - GYNECOLOGIC ONCOLOGY Medical devices from this surgery are in the Medical Devices section. TYMPANOSTOMY TUBE PLACEMENT 06/26/1988 - 06/25/1989 several times as a young child WA HYSTEROSCOPY BX ENDOMETRIUM&/POLYPC W/WO D&C 03/17/2020 Vagina /N/A Procedure: HYSTEROSCOPY; WITH BIOPSY OF ENDOMETRIUM , WITH D & C; Surgeon: Sandra Reis MD; Location: MAIN OR; Service: PHYSICIAN VICE PRESIDENT - GYNECOLOGIC ONCOLOGY Medical devices from this surgery are in the Medical Devices section. WA INSERTION INTRAUTERINE DEVICE IUD 03/17/2020 Vagina /N/A Procedure: INSERTION OF INTRAUTERINE DEVICE; Surgeon: Sandra Reis MD; Location: MAIN OR; Service: PHYSICIAN VICE PRESIDENT - GYNECOLOGIC ONCOLOGY Medical devices from this surgery are in the Medical Devices section. Medical History Medical History Date Comments Hypertension 2003 Asthma 1993 childhood Polycystic ovarian syndrome 2015 Anemia 2016 Blood transfusion, without reported diagnosis for anemia Postoperative nausea and vomiting history of motion sickness Obesity 2000 Prediabetes 2015 Eustachian tube disorder 1988 Diabetes mellitus Family History Medical History Relation Name Comments -Gynecology (Ovary, Endometrial, Cervix, Vagina) Maternal Aunt 1 Linnea Uterus Canc er -Gynecology (Ovary, Endometrial, Cervix, Vagina) Maternal Aunt 2 Tameka Uterus Canc er -Gastrointestinal (Esophagus , Liver, Bile Duct, Stomach, Pancreas, Colon, Rectum, Anus Maternal Grandfather Mg Colon can cer Diabetes Maternal Uncle 1 Diabetes Maternal Uncle 2 Diabetes Mother Ericka Hypertension Mother Ericka -Breast cancer Paternal Aunt Khadijah Fought for 2 yrs and it spread to brain and bone Heart disease Neg Hx Relation Name Status Comments Maternal Aunt 1 Linnea Alive Maternal Aunt 2 Tameka Alive Maternal Grandfather Mg Maternal Uncle 1 Maternal Uncle 2 Mother Ericka Paternal Aunt Khadijah Social History Tobacco Use Types Packs/Day Years Used Date Smoking Tobacco: Never Smokeless Tobacco: Never Alcohol Use Standard Drinks/Week Comments No 0 (1 standard drink = 0.6 oz pur e alcohol) none since early 06/2016 Sex and Gender Information Value Date Recorded Sex Assigned at Not on file Gender Identity Not on file Sexual Orientation Not on file Job Start Date Occupation Industry Not on file Not on file Not on file Obstetrics History Para Term AB IAB SAB Ectopic Multiple Livin g Live Births 0 0 0 0 0 0 0 0 0 0 Last Filed Vital Signs Vital Sign Reading Time Taken Comments Blood Pressure 153/81 11/11/2022 8:34 AM CDT Pulse 120 11/11/2022 8:[address] Reis notified Temperature 36.8 C (98.3 F) 11/11/2022 8 :34 AM CDT Respiratory Rate 18 11/11/2022 8:34 AM CDT Oxygen Saturation 97% 11/11/2022 8:5 6 AM CDT Inhaled Oxygen Concentration - - Weight 151.1 kg (333 lb 1.8 oz) 11/11/2022 8:34 AM CDT Height - - Body Mass Index 55.5 04/29/2022 10:25 AM CDT Plan of Treatment Upcoming Encounters Date Type Department Care Team Description 06/16/2023 7:30 AM SECURITIES BROKER Lab MD [facility] [place] - [facility] Center [address] [place] [address] [address] [place] [address] Sandra Reis MD [address] [place] [address] 06/16/2023 8:00 AM SECURITIES BROKER Follow-Up MD [facility] [place] - Gynecology [address] [place] [address] Sandra Reis MD [address] [place] [address] Health Maintenance Due Date Last Done Comments COVID-19 Vaccination (3 - Pf izer risk series) 03/21/2021 02/21/2021, 01/28/2021 Medical Devices Implanted Type Area Pole Lift Operator Device Identifier Shelf Expiration Date Model / Serial / Lot Willis Mirena Intrauterine System Implanted:Qty: 1 on 12/23/2016 by Sandra Reis MD at [facility] Implant N/A: Vagina WILLIS WAI 08/23/2019 / / [id number] Description:*from Pharmacy Mirena ( Levonorgestrel-R eleasing Intrauterine System) 52 Mg Implanted:Qty: 1 on 03/17/2020 by Sandra Reis MD at [facility] Implant N/A: Uterus 05/25/2022 [id number] / [id number] Description:*from Pharmacy Procedures Procedure Name Priority Date/Time Associated Diagnosis Comments CYTOLOGY HPV 16/18 GENOTYPING AND HIGH RISK POOL Routine 11/11/2022 9:36 AM CDT Malignant neoplasm of endometrium Complex atypical endometrial hyperplasia PATHOLOGY BIOPSY INTERPRETATION Routine 11/11/2022 9:36 AM CDT Malignant neoplasm of endometrium Complex atypical endometrial hyperplasia Presence of intrauterine contraceptive device CYTOLOGY PHYSICIAN VICE PRESIDENT INTERPRETATION Routine 11/11/2022 9:36 AM CDT Malignant neoplasm of endometrium Complex atypical endometrial hyperplasia HUMAN CHORIONIC GONADOTROPIN, QUALITATIVE Routine 11/11/2022 8:02 AM CDT Malignant neoplasm of endometrium after 06/06/2022 Results * Cytology HPV 16/18 Genotyping and High Risk Pool (11/11/2022 9:36 AM CDT) HPV Type 16 Negative Negative, Indetermi car, Invalid 11/17/2022 5:23 PM CDT [facility] HPV Type 18 Negative Negative, Indetermi car, Invalid 11/17/2022 5:23 PM CDT [facility] HPV High Risk Non-16/18 Negative Negative, Indetermi car, Invalid 11/17/2022 5:23 PM CDT [facility] Informational Points The hiwot HPV Test ([facility] [facility], [place], [place]) is a qualitative in vitro diagnostic test for the detection of Human Papillomavirus in cervical specimens collected in [employer]. The test utilizes amplification of target DNA by the Polymerase Chain Reaction (PCR) and nucleic acid hybridization for the detection of 14 high-risk (HR) HPV types in a single analysis. The test specifically identifies types HPV16 and HPV18 while concurrently detecting the other high risk types (31, 33, 35, 39, 45, 51, 52, 56, 58, 59, 66, and 68). The performance characteristics of this test were validated and determined by the [facility] cytology laboratory. These validation analyses have confirmed the accurate performance of the assay of the glazing department supervisor s stated limit of detection for the target of the test in various specimen types. The [facility] cytology laboratory is authorized under Clinical Laboratory Improvement Amendments (CLIA) to perform high-complexity testing. The [facility] Department of Pathology is accredited by the College [employer] (CAP). 11/17/2022 5:23 PM CDT [facility] Swab (specimen) (Cervix, ThinPrep, Liquid Based Preparation) 11/11/2022 9:36 AM CDT 11/14/2022 9:32 AM CDT Sandra Reis MD LAB CYTOLOGY ORDERAB LES Performing Organization Address City/State/[facility] Co de Phone Number [facility] [place] [address], * Cytology PHYSICIAN VICE PRESIDENT Interpretation (11/11/2022 9:36 AM CDT) Gross Description 1 ThinPrep vial received 11/21/2022 12:25 PM CDT [facility] Specimen Information Cervix, ThinPrep, Liquid Based Preparation, Swab, 11/21/2022 12:25 PM CDT [facility] Specimen Adequacy Satisfactory for evaluation 11/21/2022 12:25 PM CDT [facility] TZ/Endocervical Endocervical/carr sformation zone component present 11/21/2022 12:25 PM CDT [facility] Diagnosis Negative for intraepithelial lesion or malignancy 11/21/2022 12:25 PM CDT [facility] Diagnosis Additional Statements Fungal forms consistent with Ave 11/21/2022 12:25 PM CDT [facility] LMP 10/28/2022 11/21/2022 12:25 PM CDT [facility] HPV Reflex for Leather Goods Maker Yes 11/21/2022 12:25 PM CDT [facility] Informational Points Cervicovaginal cytology is a screening procedure subject to false negatives and false positives. Results are more reliable when a satisfactory sample is obtained on a regular repetitive basis and should be interpreted together with past and current clinical data. Some tests reported here may have been developed and performance characteristics determined by [facility]. These tests have not been specifically cleared or approved by the U.S. Food and Drug Administration. 11/21/2022 12:25 PM CDT [facility] Swab (specimen) (Cervix, ThinPrep, Liquid Based Preparation) 11/11/2022 9:36 AM CDT 11/14/2022 9:32 AM CDT Sandra Reis MD LAB CYTOLOGY ORDERAB LES [facility] [place] [address], * Pathology Biopsy Interpretation (11/11/2022 9:36 AM CDT) Diagnosis A: Endometrium: Fragments of inactive endometrium with pseudodecidualization changes consistent with exogenous progestin effect. Rare strips of unremarkable endocervical glandular epithelium. NH/FYZ 9:33 AM CDT [facility] Gross Description A: Endometrium: Multiple rai-white to red-brown pieces of tissue measuring 1.5 x 0.7 x 0.2 cm in aggregate, entirely submitted in A1. GM 3 9:33 AM CDT [facility] Biomarker Block(s) N/A 9:33 AM CDT [facility] Disclaimer "Some tests reported here may have been developed and performance characteristics determined by [facility]. These tests have not been specifically cleared or approved by the U.S. Food and Drug Administration. If applicable, controls were reviewed and showed appropriate reactivity." 9:33 AM CDT [facility] Tissue specimen (specimen) (Endometrium) Collection / Unknown 11/11/2022 9:36 AM CDT 11/11/2022 3:59 PM CDT Sandra Reis MD LAB PATHOLOGY ORDERA MERVAT [facility] [address] [address], * U HCG (11/11/2022 8:02 AM CDT) U beta hCG Ql Negative Negative [place] Comment: Very dilute urine specimens may cause false negative results. Suggest repeat in 48 hours with a first morning voided urine or request quantitative serum beta HCG test. Testing performed at [facility], [address] [place] [address] Urine 11/11/2022 8:02 AM CDT 11/11/2022 8:26 AM CDT Elissa STILL URINE ORDERABLES [facility] [address] [facility], [address] [place] [address] after 06/06/2022 Care Teams Line Crewman Relationship Specialty Start Date End Date Sandra Reis MD PCP - General Gynecologic Medical Oncology 10/24/16 Nazario Barros MD [address] [place] [id number] PCP - External Referring 10/24/16 Jana Gamble MD [address] [place] [address] [phone] Consulting Physician Internal Medicine 02/14/20 Baylee Del Real MD [address] [place] [address] [phone] Consulting Physician Gynecologic Medical Oncology 01/27/17 Panchito Narayan MD [address] [place] [address] [phone] Consulting Physician Endocrinology 12/29/16
[2023-06-06 18:12] LABS: SARS-COV-2 RT PCR NEGATIVE (NEGATIVE)
[2023-06-06] MEDS ORDERED: KETOROLAC 30 MG/ML INJ ONE (18:53)
--- NOTE | 2023-06-06 19:54 | RAD REPORT ---
EXAM DESCRIPTION: [facility]23 5:50 pm CLINICAL HISTORY: Cough;Congestion COMPARISON: Chest Single View dated 07/01/2020; Chest Single View dated 10/15/2016; CHEST PA AND LAT 2 VIEW dated 09/17/2015 TECHNIQUE: Portable AP view of the chest. FINDINGS: The lungs are clear. No pneumothorax or effusion. The cardiomediastinal contours are unre markable. IMPRESSION: No acute cardiopulmonary process.
--- NOTE | 2023-06-06 19:55 | ER ---
Nurse's Notes [facility] Name: Jass Dukes Age: 37 yrs Sex: Female : 1985 Arrival Date: 06/06/2023 Time: 17:09 Bed 7 Private MD: Diagnosis: Otitis media, unspecified, left ear;Influenza due to identified novel influenza A virus-B Presentation: 06/06 17:14 Chief complaint: Patient states: Pt c/o cough, fever, shortness of breath x 2 days. Pt tl4 states she has pain in back and chest with coughing. Coronavirus screen: Vaccine status: Patient reports receiving the 2nd dose of the covid vaccine. cough unrelated to allergies, diarrhea, fever, headache, muscle pain, nausea, shortness of breath, sore throat, vomiting. Ebola Screen: Patient negative for fever greater than or equal to 101.5 degrees Fahrenheit, and additional compatible Ebola Virus Disease symptoms Patient denies exposure to infectious person. Patient denies travel to an Ebola-affected area in the 21 days before illness onset. No symptoms or risks identified at this time. Initial Sepsis Screen: Does the patient meet any 2 criteria? No. Patient's initial sepsis screen is negative. Does the patient have a suspected source of infection? No. Patient's initial sepsis screen is negative. Risk Assessment: Do you want to hurt yourself or someone else? Patient reports no desire to harm self or others. Onset of symptoms was June 04, 2023. 17:14 Method Of Arrival: Ambulatory tl4 17:14 Acuity: ANNITA 3 tl4 Triage Assessment: 17:30 General: Appears in no apparent distress. uncomfortable, Behavior is calm, cooperative. rs5 Respiratory: Reports shortness of breath on exertion since two days ago the patient has mild shortness of breath. Historical: - Allergies: 17:19 Bactrim; tl4 17:19 PENICILLINS; tl4 - PMHx: 17:19 Diabetes - IDDM; endometrial lining CA; Hypertension; tl4 - Immunization history:: Adult Immunizations unknown. - Social history:: Smoking status: Patient denies any tobacco usage or history of. Screenin:30 [facility] ED Fall Risk Assessment (Adult) History of falling in the last 3 months, rs5 including since admission No falls in past 3 months (0 pts) Confusion or Disorientation No (0 pts) Intoxicated or Sedated No (0 pts) Impaired Gait No (0 pts) Mobility Assist Device Used No (0 pt) Altered Elimination No (0 pt) Score/Fall Risk Level 0 - 2 = Low Risk Oriented to surroundings, Maintained a safe environment. Abuse screen: Denies threats or abuse. Nutritional screening: No deficits noted. Tuberculosis screening: No symptoms or risk factors identified. Assessment: 17:30 General: Appears in no apparent distress. comfortable, Behavior is calm, cooperative. rs5 Pain: Complains of pain in chest Pain does not radiate. Pain currently is 2 out of 10 on a pain scale. at worst was 8 out of 10 on a pain scale. Quality of pain is described as aching, Pain began 1 day ago. Is intermittent, Aggravated by coughing. Neuro: Level of Consciousness is awake, alert, obeys commands, Oriented to person, place, time, situation. Cardiovascular: Heart tones S1 S2 present Rhythm is regular. 17:30 Respiratory: Airway is patent Respiratory effort is even, unlabored, Breath sounds are rs5 clear bilaterally. GI: Abdomen is round non-distended, Bowel sounds present X 4 quads. Abd is soft and non tender X 4 quads. : No signs and/or symptoms were reported regarding the genitourinary system. EENT: No signs and/or symptoms were reported regarding the EENT system. Derm: Skin is intact, Skin is pink, warm \T\ dry. Musculoskeletal: Range of motion: intact in all extremities. 18:40 Reassessment: Patient and/or family updated on plan of care and expected duration. Pain rs5 level reassessed. Patient is alert, oriented x 3, equal unlabored respirations, skin warm/dry/pink. Reassessment: provider notified pt is experiencing pain. Pain: Complains of pain in chest Pain does not radiate. Pain currently is 7 out of 10 on a pain scale. Quality of pain is described as aching, Aggravated by coughing. 19:29 General: Appears in no apparent distress. comfortable, Behavior is calm, cooperative. lg3 Pain: Denies pain. Neuro: No deficits noted. Paul Agitation-Sedation Scale (RASS): 0 - Alert and Calm Level of Consciousness is awake, alert, obeys commands, Oriented to person, place, time, situation. Cardiovascular: No deficits noted. Capillary refill < 3 seconds Clubbing of nail beds is absent JVD is absent Patient's skin is warm and dry. Respiratory: Reports cough that is pain with cough Airway is patent Respiratory effort is even, unlabored, Respiratory pattern is. GI: No deficits noted. No signs and/or symptoms were reported involving the gastrointestinal system. : No deficits noted. No signs and/or symptoms were reported regarding the genitourinary system. EENT: No deficits noted. No signs and/or symptoms were reported regarding the EENT system. Derm: No deficits noted. No signs and/or symptoms reported regarding the dermatologic system. Skin is intact, is healthy with good turgor, Skin is dry, Skin is normal, Skin temperature is warm. Musculoskeletal: No deficits noted. No signs and/or symptoms reported regarding the musculoskeletal system. Circulation, motion, and sensation intact. Range of motion: intact in all extremities. Vital Signs: 17:14 BP 133 / 85; Pulse 110; Resp 18; Temp 99.2(O); Pulse Ox 99% on R/A; Weight 141.52 kg; tl4 Height 5 ft. 5 in. ; Pain 0/10; 18:06 BP 130 / 88; Pulse 106; Resp 18; Pulse Ox 99% on R/A; ld1 18:51 BP 133 / 85; Pulse 80; Resp 17; Temp 98.2(O); Pulse Ox 99% on R/A; rs5 20:00 BP 129 / 84; Pulse 81; Resp 18 S; Pulse Ox 99% on R/A; lg3 17:14 Body Mass Index 51.92 (141.52 kg, 165.1 cm) tl4 17:14 Pain Scale: Adult tl4 ED Course: 17:11 Patient arrived in ED. im 17:12 Elva Reed FNP-C is [facility]. kb 17:12 Av Coburn MD is Attending Physician. kb 17:19 Triage completed. tl4 17:20 Arm band placed on Patient placed in an exam room, on a stretcher. rs5 17:25 COVID-19/FLU A+B/RSV Sent. cm10 17:25 EKG done, by ED staff, reviewed by Elva DELGADO. cm10 17:30 Patient has correct armband on for positive identification. Placed in gown. Bed in low rs5 position. Call light in reach. Side rails up X2. 17:52 Chest Single View XRAY In Process Unspecified. EDMS 18:50 Roger Fontana, RN is Primary Nurse. rs5 18:52 No provider procedures requiring assistance completed. rs5 19:29 Door closed. Noise minimized. Warm blanket given. lg3 19:29 Patient maintains SpO2 saturation greater than 95% on room air. lg3 20:01 Patient did not have IV access during this emergency room visit. lg3 Administered Medications: 18:40 Drug: Ketorolac IM 30 mg IM once Route: IM; Site: left deltoid; rs5 Medication: 18:52 VIS not applicable for this client. rs5 Outcome: 19:55 Discharge ordered by MD. kb 20:01 Discharged to home ambulatory, with significant other, lg3 20:01 Condition: stable 20:01 Discharge instructions given to patient, Instructed on discharge instructions, follow up and referral plans. medication usage, Demonstrated understanding of instructions, follow-up care, medications, Prescriptions given X 2, 20:01 Patient left the ED. lg3 Signatures: Dispatcher [employer] EDMS Elva Reed, PACKAGER MACHINE-C PACKAGER MACHINE-Ckb Ashanti Davis RN RN lg3 Marycarmen Bergman, RN RN ld1 Roger Fontana, RN RN rs5 Bree Rothman Clarissa, RN RN cm10 Lavon Moore tl4 Corrections: (The following items were deleted from the chart) 18:53 17:20 Arm band placed on Patient placed in an exam room, on a stretcher, tl4 rs5
--- NOTE | 2023-06-06 19:55 | EDPHYS ---
Physician Documentation [facility] Name: Jass Dukes Age: 37 yrs Sex: Female : 1985 Arrival Date: 06/06/2023 Time: 17:09 Bed 7 Private MD: ED Physician Av Coburn HPI: 06/06 17:15 This 37 yrs old Female presents to ER via Unassigned with complaints of Flu Symptoms, kb Shortness Of Breath. 17:16 Pt is a 37 year old female who presents for cough, congestion, ear pain, sore throat, kb fever and pain in chest with cough that started 2 days ago. Historical: - Allergies: 17:19 Bactrim; tl4 17:19 PENICILLINS; tl4 - PMHx: 17:19 Diabetes - IDDM; endometrial lining CA; Hypertension; tl4 - Immunization history:: Adult Immunizations unknown. - Social history:: Smoking status: Patient denies any tobacco usage or history of. ROS: 17:16 Abdomen/GI: Negative for abdominal pain, nausea, vomiting, diarrhea, and constipation, kb 17:16 Constitutional: Positive for fever, malaise, 17:16 ENT: Positive for ear pain, rhinorrhea, sinus congestion, sore throat, 17:16 Cardiovascular: Positive for chest pain, with cough, 17:16 Respiratory: Positive for cough, 17:16 All other systems are negative, Exam: 17:16 Constitutional: This is a well developed, well nourished patient who is awake, alert, kb and in no acute distress. Head/Face: Normocephalic, atraumatic. Cardiovascular: Regular rate Respiratory: Respirations even and unlabored. No increased work of breathing. Talking in full sentences Abdomen/GI: Soft, non-tender. No distention Skin: Warm, dry with normal turgor. Normal color. MS/ Extremity: Pulses equal, no cyanosis. Neurovascular intact. Full, normal range of motion. Neuro: Awake and alert, GCS 15, oriented to person, place, time, and situation. Moves all extremities. Normal gait. 17:16 ENT: External ear(s): are unremarkable, Ear canal(s): are normal, TM's: bulging, on the left, erythema, that is mild, on the left, Examination of the other ear shows no obvious abnormality, 17:25 ECG was reviewed by the Attending Physician. kb Vital Signs: 17:14 BP 133 / 85; Pulse 110; Resp 18; Temp 99.2(O); Pulse Ox 99% on R/A; Weight 141.52 kg; tl4 Height 5 ft. 5 in. ; Pain 0/10; 18:06 BP 130 / 88; Pulse 106; Resp 18; Pulse Ox 99% on R/A; ld1 18:51 BP 133 / 85; Pulse 80; Resp 17; Temp 98.2(O); Pulse Ox 99% on R/A; rs5 20:00 BP 129 / 84; Pulse 81; Resp 18 S; Pulse Ox 99% on R/A; lg3 17:14 Body Mass Index 51.92 (141.52 kg, 165.1 cm) tl4 17:14 Pain Scale: Adult tl4 MDM: 17:12 Patient medically screened. kb 17:17 Differential Diagnosis: Bronchitis Influenza Upper Respiratory Infection Sinusitis kb Otitis Media Pneumonia. Data reviewed: vital signs, nurses notes. 18:30 Counseling: I had a detailed discussion with the patient and/or guardian regarding the kb historical points, exam findings, and any diagnostic results supporting the discharge/admit diagnosis, lab results, radiology results, the need for outpatient follow up, a family practitioner, to return to the emergency department if symptoms worsen or persist or if there are any questions or concerns that arise at home. 06/06 17:15 Order name: COVID-19/FLU A+B/RSV; Complete Time: 18:26 kb 06/06 17:15 Order name: Chest Single View XRAY; Complete Time: 19:54 kb 06/06 17:15 Order name: EKG; Complete Time: 17:16 kb 06/06 17:15 Order name: EKG - Nurse/Tech; Complete Time: 17:25 kb EC:25 Rate is 108 beats/min. Rhythm is regular. QRS [place] is Normal. SD interval is normal at kb 154 msec. QRS interval is normal at 86 msec. QT interval is normal at 415 msec. Administered Medications: 18:40 Drug: Ketorolac IM 30 mg IM once Route: IM; Site: left deltoid; rs5 Disposition Summary: 06/06/23 19:55 Discharge Ordered Notes: Location: Home kb Condition: Stable kb Diagnosis - Otitis media, unspecified, left ear kb - Influenza due to identified novel influenza A virus - B kb Followup: kb - With: Emergency Department - When: As needed - Reason: Worsening of condition Followup: kb - With: Private Physician - When: 2 - 3 days - Reason: Recheck today's complaints, Continuance of care, Re-evaluation by your physician Discharge Instructions: - Discharge Summary Sheet kb - Otitis Media, Adult, [id number] kb - Influenza, Adult, [id number] kb Forms: - Medication Reconciliation Form kb - Thank You Letter kb - Antibiotic Education kb - Prescription Opioid Use kb - Patient Portal Instructions kb - Leadership Thank You Letter kb Prescriptions: - Tessalon Perles 100 mg Oral Capsule - take 1 capsule ORAL route every 8 hours As needed; 15 capsule; Refills: 0, kb Product Selection Permitted - Zithromax 500 mg Oral Tablet - take 1 tablet ORAL route once daily for 5 days; 5 tablet; Refills: 0, Product kb Selection Permitted Addendum: 06/09/2023 00:06 Co-signature as Attending Physician, Av Coburn MD I reviewed the patient's care r n provided by the Advanced Practice Provider and agree with the diagnosis and treatment plan. Signatures: Dispatcher [employer] Elva Rossi, CONCRETE FENCE BUILDER-C CONCRETE FENCE BUILDER-Ckb Av Coburn MD MD rn Sotelo, Ricky, RN RN rs5 [facility], [place] 4
[2023-06-06 20:37] VITALS: O2SAT 99
[2023-06-06 20:40] VITALS: TEMP 98.2
[2023-06-06 20:42] VITALS: BP 129/84
--- NOTE | 2023-06-07 13:04 | EKG ---
Test Date: 2023-06-06 Test Time: 17:22:50 Yacht Rigger: CLARY MEASUREMENT RESULTS: Intervals: Rate: 108 FL: 154 QRSD: 86 QT: 310 QTc: 415 [place]: P: 40 FL: 154 QRS: 52 T: 19 INTERPRETIVE STATEMENTS: Sinus tachycardia Otherwise normal ECG Compared to ECG 07/01/2020 14:17:23 No significant changes Electronically Signed On 06-07-23 13:03:40 ENDODONTIST by Dieter Mcghee
== END 2023-06-06 20:01 | disposition home or self-care (01) ==
LOC: ER 17:09
DX: J10.1 Influenza due to other identified influenza virus with other respiratory manifestations (principal); H66.92 Otitis media, unspecified, left ear; Z11.52 Encounter for screening for COVID-19; Z88.0 Allergy status to penicillin; Z88.1 Allergy status to other antibiotic agents
CPT/HCPCS: 93005; 0241U; 71045; 96372; 99285

== ENCOUNTER 2023-11-27 21:01 | Emergency (ER) | payer BC ==
--- OUTSIDE RECORDS SUMMARY | 2023-11-27 21:04 | XMS REPORT | Clinical Summary ---
Author Name Unknown Organization [facility] Address [address] [place] [address] Care Team Providers Care Delivery Stock Clerk Name Role Phone Sandra Reis MD Primary Care Provider Nazario Barros MD Unavailable Jana Gamble MD Unavailable Baylee Del Real MD Unavailable [phone] Panchito Narayan MD Unavailable Allergies Active Allergy Reactions Criticality Noted Date Comments Sulfamethoxazole-Trimethoprim 2016 Empagliflozin GI Intolerance 07/19/2023 Penicillins Anaphylaxis High 11/09/2016 Medications Medication Sig Dispensed Refills Start Date End Date Status blood-glucose meter kitIndications:Diab etes mellitus without mention of complication, type II or unspecified type, uncontrolled Use to check blood glucose as directed. 1 each 1 0 Active insulin aspart U-100 (NovoLOG Flexpen U-100 Insulin) 100 unit/mL (3 mL) insulin penIndications:Type 2 diabetes mellitus with hyperglycemia Inject 15-25 Units under the skin 3 (three) times a day before meals. Take before meals as per the instructions provided 30 mL 11 1 Active insulin glargine (LANTUS SOLOSTAR) 100 unit/mL (3 mL) insulin penIndications:Type 2 diabetes mellitus with hyperglycemia Inject 23 Units under the skin twice daily. 15 mL 11 1 Active BD Sharon 2nd Gen Pen Needle 32 gauge x " ndleIndications:Roselyn betes mellitus without mention of complication, type II or unspecified type, uncontrolled USE 4 TIMES DAILY 200 each 3 1 Active fenofibrate micronized (LOFIBRA) 134 mg capsuleIndications: Mixed hyperlipidemia Take 1 capsule (134 mg) by mouth every morning before breakfast. 90 capsule 3 1 Active blood sugar diagnostic (glucose blood) strpIndications:Typ e 2 diabetes mellitus with hyperglycemia,snf current use of insulin Use to check BG 3 times daily before meals. 100 strip 11 1 Active flash glucose sensor (FreeStyle Catrachita 14 Day Sensor) kitIndications:Type 2 diabetes mellitus with hyperglycemia,snf current use of insulin 1 kit by miscellaneous route daily. For blood glucose monitoring at least 4 times daily. Change sensor every 14 days. 3 kit 11 1 Active empagliflozin (Jardiance) 10 mg tabIndications:Type 2 diabetes mellitus with hyperglycemia Take 10 mg by mouth every morning before breakfast. 30 tablet 6 1 07/19/19 24 Discontinu ed(Other/N ot Applicable ) megestrol (MEGACE) 40 mg tabletIndications:M alignant neoplasm of endometrium,Presenc e of intrauterine contraceptive device,Complex atypical endometrial hyperplasia Take 2 tablets (80 mg) by mouth twice daily. 60 tablet 6 2 07/19/19 24 Discontinu ed(Therapy completed) hydroCHLOROthiazide (HYDRODIURIL) 25 mg tabletIndications:H ypertension Take 1 tablet (25 mg) by mouth every morning. 180 tablet 1 2 07/19/19 24 Discontinu ed(Other/N ot Applicable ) lisinopril (PRINIVIL,ZESTRIL) 40 mg tabletIndications:H ypertension Take 1 tablet (40 mg) by mouth every morning. 90 tablet 3 2 07/19/19 24 Discontinu ed(Other/N ot Applicable ) amLODIPine (NORVASC) 5 mg tabletIndications:H ypertension TAKE 1 TABLET BY MOUTH TWICE A DAY 180 tablet 1 3 07/19/19 24 Discontinu ed(Other/N ot Applicable ) Active Problems Problem Noted Date Diagnosed Date Complex atypical endometrial hyperplasia 021 Excessive and frequent menstruation with irregul ar cycle 10/23/2020 Positive cervical high risk HPV DNA test 021 snf current use of insulin 04/23/2020 Sedentary lifestyle 02/16/2020 Hyperlipidemia 10/28/2018 Type 2 diabetes mellitus with hyperglycemia 02/25 Presence of intrauterine contraceptive device Hypertension 12/29/2016 Hyperglycemia 12/21/2016 Endometrioid adenocarcinoma, 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 Cancer Staging:Clinical stage from 12/26/2016:Stage IA(Primary) - Signed by Sandra Reis MD on 02/03/2017 Morbid (severe) obesity due to excess calories 0 11/10/2016 Chronic iron deficiency anemia secondary to bloo d loss 11/10/2016 Resolved Problems Problem Noted Date Diagnosed Date Resolved Date Type II diabetes mellitus uncontrolled 02/16/2020 07/19/2023 Encounters Date Type Department Care Team Description 07/19/2023 11:00 AM CODING AND REIMBURSEMENT SPECIALIST Follow-Up [facility] Gynecology [address] [place] [id number] Sandra Reis MD Endometrioid adenocarcinoma, NOS of endometrium (Primary Dx); Malignant neoplasm of endometrium; Complex atypical endometrial hyperplasia; Presence of intrauterine contraceptive device; Morbid (severe) obesity due to excess calories 07/19/2023 Documentation Gynecologic Oncology Center [address] [facility], 6th [place] [address] Sandra Reis MD 07/19/2023 Travel 01/14/2023 Refill MD [facility] Gynecology [address] [place] [phone] Haley Lozada PA Malignant neoplasm of endometrium; Presence of intrauterine contraceptive device; Complex atypical endometrial hyperplasia 12/29/2022 Telephone Endocrine Center [address] [facility], 6th [place] [address] Bronwyn Smith RN after 11/27/2022 Immunizations Name Administration Dates Next Due Pfizer SARS-CoV-2 Vaccination (Purple Cap) 02/21,01/28/2021 Surgical History Surgery Date Site/Laterality Comments AZ DILATION & CURETTAGE DX&/THER NONOBSTETRIC 12/23/2016 Vagina /N/A Procedure: DILATION AND CURETTAGE, DIAGNOSTIC AND THERAPEUTIC (NONOBSTETRICAL); Surgeon: Sandra Reis MD; Location: MAIN OR; Service: FACEPIECE LINE SUPERVISOR - GYNECOLOGIC ONCOLOGY Medical devices from this surgery are in the Medical Devices section. AZ INSERTION INTRAUTERINE DEVICE IUD 12/23/2016 Vagina /N/A Procedure: INSERTION OF INTRAUTERINE DEVICE; Surgeon: Sandra Reis MD; Location: MAIN OR; Service: FACEPIECE LINE SUPERVISOR - GYNECOLOGIC ONCOLOGY Medical devices from this surgery are in the Medical Devices section. AZ LAPAROSCOPY W/RMVL ADNEXAL STRUCTURES 12/23/2016 Vagina /Left Procedure: SURGICAL LAPAROSCOPYWITH LEFT OVARIAN CYSTECTOMY; Surgeon: Sandra Reis MD; Location: MAIN OR; Service: FACEPIECE LINE SUPERVISOR - GYNECOLOGIC ONCOLOGY Medical devices from this surgery are in the Medical Devices section. TYMPANOSTOMY TUBE PLACEMENT 06/26/1988 - 06/25/1989 several times as a young child AZ HYSTEROSCOPY BX ENDOMETRIUM&/POLYPC W/WO D&C 03/17/2020 Vagina /N/A Procedure: HYSTEROSCOPY; WITH BIOPSY OF ENDOMETRIUM , WITH D & C; Surgeon: Sandra Reis MD; Location: MAIN OR; Service: FACEPIECE LINE SUPERVISOR - GYNECOLOGIC ONCOLOGY Medical devices from this surgery are in the Medical Devices section. AZ INSERTION INTRAUTERINE DEVICE IUD 03/17/2020 Vagina /N/A Procedure: INSERTION OF INTRAUTERINE DEVICE; Surgeon: Sandra Reis MD; Location: MAIN OR; Service: FACEPIECE LINE SUPERVISOR - GYNECOLOGIC ONCOLOGY Medical devices from this surgery are in the Medical Devices section. Medical History Medical History Date Comments Hypertension 2003 Asthma 1992 childhood Polycystic ovarian syndrome 2015 Anemia 2016 [...] Sign Reading Time Taken Comments Blood Pressure 138/85 07/19/2023 10:54 AM CODING AND REIMBURSEMENT SPECIALIST Pulse 100 07/19/2023 10:54 AM CODING AND REIMBURSEMENT SPECIALIST Temperature 36.6 C (97.9 F) 07/19/2023 1 0:54 AM CODING AND REIMBURSEMENT SPECIALIST Respiratory Rate 18 07/19/2023 10:5 4 AM CODING AND REIMBURSEMENT SPECIALIST Oxygen Saturation 97% 07/19/2023 10: 54 AM CODING AND REIMBURSEMENT SPECIALIST Inhaled Oxygen Concentration - - Weight 143.7 kg (316 lb 12.8 oz) 2023 10:54 AM CODING AND REIMBURSEMENT SPECIALIST Height - - Body Mass Index 52.78 04/29/2022 10:25 AM CDT Plan of Treatment Upcoming Encounters Date Type Department Care Team (Late st Contact Info) Description 07/19/2024 9:00 AM CODING AND REIMBURSEMENT SPECIALIST Lab MD [facility] [place] [facility] [address] [place] [address] [address] [place] [address] Sandra Reis MD [address] [place] [id number] 07/19/2024 9:30 AM CODING AND REIMBURSEMENT SPECIALIST Follow-Up MD [facility] in [place] - Gynecology [address] [place] [address] Sandra Reis MD [address] [place] [address] [phone] Health Maintenance Due Date Last Done Comments COVID-19 Vaccine (3 - 2023-24 season) 2023, 01/28/2021 Influenza Vaccine 02/25/2024 Medical Devices Implanted Type Area Grinder Operator Surface Tool Device Identifier Shelf Expiration Date Model / Serial / Lot Willis Mirena Intrauterine System Implanted:Qty: 1 on 12/23/2016 by Sandra Reis MD at [facility] Implant N/A: Vagina WILLIS WAI 08/23/2019 / / [id number] Description:*from Pharmacy Mirena ( Levonorgestrel-R eleasing Intrauterine System) 52 Mg Implanted:Qty: 1 on 03/17/2020 by Sandra Reis MD at [facility] Implant N/A: Uterus 05/25/2022 [id number] / [id number] Description:*from Pharmacy Procedures Procedure Name Priority Date/Time Associated Diagnosis Comments PATHOLOGY BIOPSY INTERPRETATION Routine 07/19/2023 12:10 PM CODING AND REIMBURSEMENT SPECIALIST Complex atypical endometrial hyperplasia Presence of intrauterine contraceptive device Endometrioid adenocarcinoma, NOS of endometrium HUMAN CHORIONIC GONADOTROPIN, QUALITATIVE Routine 07/19/2023 10:29 AM CODING AND REIMBURSEMENT SPECIALIST Malignant neoplasm of endometrium Complex atypical endometrial hyperplasia Presence of intrauterine contraceptive device after 11/27/2022 Results * Pathology Biopsy Interpretation (07/19/2023 12:10 PM CODING AND REIMBURSEMENT SPECIALIST) Submitted Clinical History Complex atypical endometrial hyperplasia [N85.02] Presence of intrauterine contraceptive device [Z97.5] Endometrioid adenocarcinoma, NOS of endometrium [C54.1] 4 2:28 PM CODING AND REIMBURSEMENT SPECIALIST [facility] Diagnosis A: Endometrial biops y: Scant minute fragments of inactive endometrium with pseudodecidualization changes consistent with exogenous hormone effect. (See Comment) Fragments of unremarkable smooth muscle. Fragments of unremarkable endocervical epithelium. Background of predominantly mucin. BCL/FQS 2:28 PM CODING AND REIMBURSEMENT SPECIALIST [facility] Comment Given the scant endometrial tissue present, the findings may not be entirely technical support representative. Clinical correlation is recommended. 2:28 PM CODING AND REIMBURSEMENT SPECIALIST [facility] Gross Description A: Endometrial biopsy: Multiple rai-white to red-brown tissue admixed with abundant amount of cloudy gelatinous material measuring 1.7 x 1.2 x 0.4 cm in aggregate, entirely submitted in A1. GM 4 2:28 PM CODING AND REIMBURSEMENT SPECIALIST [facility] Disclaimer "Some tests reported here may have been developed and performance characteristics determined by [facility] Pathology and Laboratory Medicine. These tests have not been specifically cleared or approved by the U.S. Food and Drug Administration. If applicable, controls were reviewed and showed appropriate reactivity." 4 2:28 PM CODING AND REIMBURSEMENT SPECIALIST [facility] Tissue (Endometrium) Non-blood Collection / Unknown 07/19/2023 12:10 PM CODING AND REIMBURSEMENT SPECIALIST 07/20/2023 12:22 PM CODING AND REIMBURSEMENT SPECIALIST Sandra Reis MD [place] [address], * U HCG (07/19/2023 10:29 AM CODING AND REIMBURSEMENT SPECIALIST) Urine Human Chorionic Gonadotropin Qualitative Negative Negative 07/19/2023 10:43 AM CODING AND REIMBURSEMENT SPECIALIST [facility] Urine Voided urine specimen / Unknown Non-blood Collection / Unknown 07/19/2023 10:29 AM CODING AND REIMBURSEMENT SPECIALIST 07/19/2023 10:29 AM CODING AND REIMBURSEMENT SPECIALIST Narrative [place] - 07/19/2023 10:43 AM CODING AND REIMBURSEMENT SPECIALIST Very dilute urine specimens may cause false negative results. Suggest repeat in 48 hours with a first morning voided urine or request quantitative serum beta HCG test. The ICON 20 hCG Serum/Urine test employs a solid phase chromatographic immunoassay technology to selectively detect elevated levels of hCG in urine with a high degree of sensitivity. Sandra Reis MD URINE ORDERABLES [facility] [place] [address] [facility], [address] [place] [address] after 11/27/2022 Care Teams Delivery Stock Clerk Relationship Specialty Start Date End Date Sandra eRis MD PCP - General Gynecologic Medical Oncology 10/24/16 Nazario Barros MD [address] [place] [id number] PCP - External Referring 10/24/16 Jana Gamble MD [address] [place] [phone] Consulting Physician Internal Medicine 02/14/20 Baylee Del Real MD [address] [place] [id number] Consulting Physician Gynecologic Medical Oncology 01/27/17 Panchito Narayan MD [address] [place] [address] [phone] Consulting Physician Endocrinology 12/29/16
[2023-11-27] MEDS ORDERED: MORPHINE 4 MG/ML SYR ONE (23:58)
[2023-11-27 23:59] LABS: Absolute Eosinophils 0.1 K/uL (0-0.5); Absolute Lymphocytes (CBC) 2.4 K/uL (0.7-4.9); Absolute Monocytes 0.7 K/uL (0.1-1.3); Absolute Neutrophil 5.9 K/uL (1.8-8.0); Basophils % 0.2 % (0-1.3); Eosinophils % 0.6 % (0-4.4); Hematocrit 38.7 % (36.0-45.0); Hemoglobin 12.8 g/dL (12.0-15.0); MCH 27.1 pg (27.0-35.0); MCHC 33.1 g/dL (32.0-36.0); MCV 81.8 fL (80-100); Monocytes % 7.7 % (3.3-12.3); Neutrophils % 65.5 % (41.7-73.7); Nucleated Red Blood Cells % 0.3 % (0-0); Platelets 308 thou/uL (152-406); RBC Red Blood Cell Count 4.73 M/uL (3.86-4.86); Red Cell Distribution Width 14.5 % (12.1-15.2)
[2023-11-28] MEDS ORDERED: KETOROLAC 30 MG/ML INJ ONE (01:10)
[2023-11-28] MEDS ORDERED: INSULIN REGULAR (HUMAN) 100 UNIT/ML ONE (01:10)
[2023-11-28] MEDS ORDERED: NA CHLORIDE 0.9% 1,000 ML ONE (01:11)
--- NOTE | 2023-11-28 02:39 | ER ---
Nurse's Notes [facility] Name: Jass Dukes Age: 37 yrs Sex: Female : 1985 Arrival Date: 11/27/2023 Time: 21:01 Bed 4 Private MD: Diagnosis: Pain in left lower leg;Diabetes mellitus due to underlying condition with hyperglycemia Presentation: 11/26 22:04 Chief complaint: Patient states: pt was recently diagnosis with DVT to LLE and today as6 started having pain and swelling. Coronavirus screen: At this time, the client does not indicate any symptoms associated with coronavirus-19. Ebola Screen: No symptoms or risks identified at this time. Initial Sepsis Screen: Does the patient meet any 2 criteria? No. Patient's initial sepsis screen is negative. Does the patient have a suspected source of infection? No. Patient's initial sepsis screen is negative. Risk Assessment: Do you want to hurt yourself or someone else? Patient reports no desire to harm self or others. Onset of symptoms was November 27, 2023. 22:04 Method Of Arrival: Wheelchair as6 22:04 Acuity: ANNITA 3 as6 Triage Assessment: 22:06 General: Appears in no apparent distress. Behavior is calm, cooperative. Pain: as6 Complains of pain in left leg. Musculoskeletal: Swelling present in left leg. SURVEY COORDINATOR: 22:06 LMP N/A - control method, Not as6 Historical: - Allergies: 22:05 Bactrim; as6 22:05 PENICILLINS; as6 22:05 GABAPENTIN; as6 - PMHx: 22:05 Diabetes - IDDM; endometrial lining CA; Hypertension; as6 - PSHx: 22:05 ear tubes; ovarian cysts; Tonsillectomy; as6 - Immunization history:: Adult Immunizations up to date. - Infectious Disease History:: Denies. - Social history:: Smoking status: Patient denies any tobacco usage or history of. Screenin/04 01:10 [facility] ED Fall Risk Assessment (Adult) History of falling in the last 3 months, km8 including since admission No falls in past 3 months (0 pts) Confusion or Disorientation No (0 pts) Intoxicated or Sedated No (0 pts) Impaired Gait No (0 pts) Mobility Assist Device Used No (0 pt) Altered Elimination No (0 pt) Score/Fall Risk Level 0 - 2 = Low Risk Oriented to surroundings, Maintained a safe environment, Educated pt \T\ family on fall prevention, incl call for assistance when getting out of bed, Assessed \T\ reinforced patient's understanding of fall precautions. Abuse screen: Denies threats or abuse. Denies injuries from another. Nutritional screening: No deficits noted. Tuberculosis screening: No symptoms or risk factors identified. Assessment: 01:10 General: Appears in no apparent distress. comfortable, Behavior is calm, cooperative, km8 appropriate for age. Pain: Complains of pain in left leg Pain currently is 4 out of 10 on a pain scale. Neuro: Level of Consciousness is awake, alert, obeys commands, Oriented to person, place, time, situation. Cardiovascular: Denies chest pain, shortness of breath, Patient's skin is warm and dry. Respiratory: Airway is patent Respiratory effort is even, unlabored, Respiratory pattern is regular, symmetrical. GI: No signs and/or symptoms were reported involving the gastrointestinal system. : No signs and/or symptoms were reported regarding the genitourinary system. EENT: No signs and/or symptoms were reported regarding the EENT system. Derm: Skin is intact, is healthy with good turgor, Skin is dry, Skin is pink, warm \T\ dry. normal, Skin temperature is warm. Musculoskeletal: Swelling present in left ankle. 02:15 Reassessment: Patient appears in no apparent distress at this time. No changes from km8 previously documented assessment. Patient and/or family updated on plan of care and expected duration. Pain level reassessed. Patient is alert, oriented x 3, equal unlabored respirations, skin warm/dry/pink. Vital Signs: 11/26 22:04 BP 120 / 84; Pulse 99; Resp 18; Temp 97.8; Pulse Ox 95% ; Weight 142.88 kg; Height 5 as6 ft. 5 in. ; Pain 910; 11/27 01:10 BP 149 / 94; Pulse 97; Resp 18; Pulse Ox 99% on R/A; km8 02:00 BP 138 / 80; Pulse 99; Resp 18; Pulse Ox 99% on R/A; km8 02:30 BP 140 / 84; Pulse 94; Resp 18; Pulse Ox 97% on R/A; km8 11/26 22:04 Body Mass Index 52.42 (142.88 kg, 165.1 cm) as6 11/26 22:04 Pain Scale: Adult as6 Celestina Coma Score: 01:10 Eye Response: spontaneous(4). Motor Response: obeys commands(6). Verbal Response: km8 oriented(5). Total: 15. ED Course: 11/26 21:03 Patient arrived in ED. ra3 21:17 Favio Lynch PA is PHCP. cp 21:17 Robby Hall MD is Attending Physician. cp 22:05 Triage completed. as6 22:06 Arm band placed on. as6 22:53 US Extremity Venous Unilateral Ltd In Process Unspecified. EDMS 23:16 BMP Sent. vk 23:16 CBC with Diff Sent. vk 11/27 00:02 Vonnie Lester, RN is Primary Nurse. ss 00:52 Primary Nurse role handed off by Vonnie Lester, PETER km8 00:52 Karlie Coombs, PETER is Primary Nurse. km8 01:10 Patient has correct armband on for positive identification. Bed in low position. Call km8 light in reach. Side rails up X 1. Provided Education on: call light use. Pulse ox on. NIBP on. Warm blanket given. 01:10 No provider procedures requiring assistance completed. km8 03:00 IV discontinued, intact, bleeding controlled, No redness/swelling at site. Pressure km8 dressing applied. Administered Medications: 00:02 Drug: morphine IM 6 mg IM once Route: IM; Site: right deltoid; ss 01:18 Follow up: Response: No adverse reaction; Pain is decreased 01:18 Drug: NS 0.9% IV 1000 ml IV at 1 bolus Per protocol; 1000 mL bolus Route: IV; Rate: 1 km8 bolus; Site: left antecubital; 02:27 Follow up: IV Status: Completed infusion; IV Intake: 1000ml 8 01:18 Drug: Insulin Regular Human Sub-Q 15 units Sub-Q once {Co-Signature: vc1 (allie Jon RN).} Route: Sub-Q; Site: right upper arm; 02:36 Follow up: Response: No adverse reaction; Blood sugar is lowered 01:18 Drug: Ketorolac IVP 30 mg IVP once Route: IVP; Site: left antecubital; km8 02:27 Follow up: Response: No adverse reaction km8 Medication: 01:10 VIS not applicable for this client. km8 Point of Care Testing: Blood Glucose: 02:36 Blood Glucose: 492 mg/dL; km8 Ranges: Intake: 02:27 IV: 1000ml; Total: 1000ml. km8 Outcome: 02:39 Discharge ordered by . cp 03:02 Discharged to home via wheelchair, with significant other, km8 03:02 Condition: good 03:02 Discharge instructions given to patient, Instructed on discharge instructions, follow up and referral plans. medication usage, Demonstrated understanding of instructions, follow-up care, medications, Prescriptions given X 2, 03:03 Patient left the ED. km8 Signatures: Dispatcher [employer] EDMS Vonnie Lester, RN RN Favio Barnes PA PA cp Slawson, Ashby, RN RN as6 Karlie Coombs RN RN km8 Therese Gates Vivian vk Calcote, Vanessa RN vc1
--- NOTE | 2023-11-28 02:39 | EDPHYS ---
Physician Documentation [facility] Name: Jass Dukes Age: 37 yrs Sex: Female : 1985 Arrival Date: 11/27/2023 Time: 21:01 Bed 4 Private MD: ED Physician Robby Hall HPI: 11/26 22:15 This 37 yrs old Female presents to ER via Wheelchair with complaints of Leg Swelling. cp 22:15 The patient presents with pain, swelling, tenderness. The complaints affect the left cp calf. Context: HX of DVT, currently taking prescribed Eliquis. Reports increased pain and swelling. Associated signs and symptoms: Pertinent negatives fever, numbness, warmth, shortness of breath. Treatment prior to arrival includes: no previous treatment. 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 - Infectious Disease History:: Denies. - Social history:: Smoking status: Patient denies any tobacco usage or history of. ROS: 22:20 Cardiovascular: Negative for chest pain, palpitations, cp 22:20 Eyes: Negative for injury, pain, redness, and discharge, cp 22:20 Constitutional: Negative for body aches, chills, fever, poor PO intake, 22:20 ENT: Negative for drainage from ear(s), ear pain, sore throat, difficulty swallowing, difficulty handling secretions, 22:20 Respiratory: Negative for cough, shortness of breath, wheezing, 22:20 Abdomen/GI: Negative for abdominal pain, vomiting, diarrhea, constipation, 22:20 Back: Negative for pain at rest, pain with movement, 22:20 MS/extremity: Positive for pain, swelling, tenderness, of the left lower leg, Negative for injury or acute deformity, paresthesias, 22:20 Neuro: Negative for altered mental status, headache, numbness, weakness, 22:20 All other systems are negative, Exam: 22:25 Constitutional: The patient appears in no acute distress, alert, awake, cp non-diaphoretic, non-toxic, well developed, well nourished, obese, uncomfortable, 22:25 Head/Face: Normocephalic, atraumatic. cp 22:25 Eyes: Periorbital structures: appear normal, Conjunctiva: normal, no exudate, no injection, Sclera: no appreciated abnormality, Lids and lashes: appear normal, bilaterally, 22:25 ENT: External ear(s): are unremarkable, Nose: is normal, Mouth: Lips: moist, Oral mucosa: pink and intact, moist, Posterior pharynx: is normal, airway is patent, no erythema, no exudate, 22:25 Chest/axilla: Inspection: normal, 22:25 Cardiovascular: Rate: normal, Rhythm: regular, JVD: is not appreciated, 22:25 Respiratory: the patient does not display signs of respiratory distress, Respirations: normal, no use of accessory muscles, no retractions, labored breathing, is not present, Breath sounds: are clear throughout, no decreased breath sounds, no stridor, no wheezing, 22:25 Abdomen/GI: Exam negative for discomfort, distension, guarding, Inspection: abdomen appears normal, 22:25 Back: pain, is absent, ROM is normal, 22:25 Musculoskeletal/extremity: Extremities: grossly normal except: noted in the left lower leg: mild swelling, skin warm and dry with no erythema, pain and tenderness to palpation of calf, ROM: full active range of motion, in the left knee and left ankle, Pulses: noted to be 2+ in the left dorsalis pedis artery, the left foot and left leg Sensation intact. Vital Signs: 22:04 BP 120 / 84; Pulse 99; Resp 18; Temp 97.8; Pulse Ox 95% ; Weight 142.88 kg; Height 5 as6 ft. 5 in. ; Pain 9/10; 0604 01:10 BP 149 / 94; Pulse 97; Resp 18; Pulse Ox 99% on R/A; km8 02:00 BP 138 / 80; Pulse 99; Resp 18; Pulse Ox 99% on R/A; km8 02:30 BP 140 / 84; Pulse 94; Resp 18; Pulse Ox 97% on R/A; km8 0603 22:04 Body Mass Index 52.42 (142.88 kg, 165.1 cm) as6 11/26 22:04 Pain Scale: Adult as6 [place] Coma Score: 01:10 Eye Response: spontaneous(4). Motor Response: obeys commands(6). Verbal Response: km8 oriented(5). Total: 15. MDM: 11/26 22:06 Patient medically screened. cp 11/27 02:38 Differential diagnosis: cellulitis, worsening DVT, strain of calf. Data reviewed: vital cp signs, nurses notes, lab test result(s), radiologic studies, ultrasound. I considered the following discharge prescriptions or medication management in the emergency department Medications were administered in the Emergency Department. See MAR. Care significantly affected by the following chronic conditions: Diabetes, Hypertension. Counseling: I had a detailed discussion with the patient and/or guardian regarding the historical points, exam findings, and any diagnostic results supporting the discharge/admit diagnosis, lab results, radiology results, the need for outpatient follow up, a family practitioner, to return to the emergency department if symptoms worsen or persist or if there are any questions or concerns that arise at home. Response to treatment: the patient's symptoms have markedly improved after treatment, and as a result, I will discharge patient. 11/26 22:51 Order name: CBC with Diff; Complete Time: 00:15 cp 11/26 22:51 Order name: BMP; Complete Time: 00:15 cp 11/27 01:34 Interpretation: Normal except: NA 128; CL 95; GLUC 603; GFR 79. cp 11/27 02:47 Order name: Glucose, Ancillary Testing EDMS 11/26 22:13 Order name: US Extremity Venous Unilateral Ltd cp 11/26 22:51 Order name: IV; Complete Time: 23:16 cp Administered Medications: 00:02 Drug: morphine IM 6 mg IM once Route: IM; Site: right deltoid; 01:18 Follow up: Response: No adverse reaction; Pain is decreased [facility] 01:18 Drug: NS 0.9% IV 1000 ml IV at 1 bolus Per protocol; 1000 mL bolus Route: IV; Rate: 1 km8 bolus; Site: left antecubital; 02:27 Follow up: IV Status: Completed infusion; IV Intake: 1000ml [facility] 01:18 Drug: Insulin Regular Human Sub-Q 15 units Sub-Q once {Co-Signature: vc1 (allie Jon RN).} Route: Sub-Q; Site: right upper arm; 02:36 Follow up: Response: No adverse reaction; Blood sugar is lowered 01:18 Drug: Ketorolac IVP 30 mg IVP once Route: IVP; Site: left antecubital; 8 02:27 Follow up: Response: No adverse reaction Point of Care Testing: Blood Glucose: 02:36 Blood Glucose: 492 mg/dL; Ranges: Critical Glucose Levels:Adult <50 mg/dl or >400 mg/dl <40 mg/dl or >180 mg/dl Disposition Summary: 11/28/23 02:39 Discharge Ordered Notes: Location: Home cp Problem: new cp Symptoms: have improved cp Condition: Stable cp Diagnosis - Pain in left lower leg cp - Diabetes mellitus due to underlying condition with hyperglycemia cp Followup: cp - With: Private Physician - When: 2 - 3 days - Reason: Recheck today's complaints Discharge Instructions: - Discharge Summary Sheet cp - Hyperglycemia cp - Musculoskeletal Pain cp - Daily Diabetes Mellitus Record cp - Blood Glucose Monitoring, Adult cp - Diabetes Mellitus and Nutrition, Adult cp - Heat Therapy cp Forms: - Medication Reconciliation Form cp - Antibiotic Education cp - Prescription Opioid Use cp - Patient Portal Instructions cp - Leadership Thank You Letter cp Prescriptions: - Cyclobenzaprine 10 mg Oral Tablet - take 1 tablet ORAL route every 8 hours As needed; 30 tablet; Refills: 0, cp Product Selection Permitted - Diclofenac Sodium 75 mg Oral Tablet Sustained Release - take 1 tablet ORAL route 2 times per day; 30 tablet; Refills: 0, Product cp Selection Permitted Addendum: 12/04/2023 10:59 Co-signature as Attending Physician, Robby Hall MD I reviewed the patient's care r t provided by the Advanced Practice Provider and agree with the diagnosis and treatment plan. Signatures: Dispatcher [employer] Vonnie Mathur RN RN ss Favio Lynch PA PA cp Jey Angeles RN RN as6 Robby Hall MD MD rt Karlie Coombs RN RN km8 Renay Jon RN vc1 Corrections: (The following items were deleted from the chart) 11/27 20:43 02:28 Data reviewed: vital signs, nurses notes, lab test result(s), radiologic studies, cp ultrasound, cp 20:43 02:28 I considered the following discharge prescriptions or medication management in cp the emergency department Medications were administered in the Emergency Department. See MAR : Care significantly affected by the following chronic conditions: Diabetes, cp Hypertension, Counseling: I had a detailed discussion with the patient and/or guardian cp regarding the historical points, exam findings, and any diagnostic results supporting the discharge/admit diagnosis, lab results, radiology results, the need for outpatient follow up, a family practitioner, to return to the emergency department if symptoms worsen or persist or if there are any questions or concerns that arise at home, Response to treatment: the patient's symptoms have markedly improved after cp treatment, and as a result, I will discharge patient, Differential diagnosis: cellulitis, worsening DVT, strain of calf cp cp
[2023-11-28 03:36] VITALS: BP 140/84; TEMP 97.8; O2SAT 97
--- NOTE | 2023-11-28 11:33 | RAD REPORT ---
EXAM DESCRIPTION: US - Extremity Venous Uni Ltd - 11/27/2023 10:51 pm TECHNIQUE: Extremity Venous Uni Ltd. Sánchez scale, color and pulsed Doppler ultrasound with color flow and spectral analysis evaluation of left lower extremity was performed to assess for deep vein throm bosis. CLINICAL HISTORY: Bed Name: IW10 increased swelling, HX DVT;Pain COMPARISON: None currently available. FINDINGS: LEFT lower extremity: There is normal grayscale appearance and compressibility. Normal phasic pulsed Doppler and normal col or Doppler flow are visualized. The interrogated vessels show normal augmentation. IMPRESSION: 1. No evidence for DVT or SVT left lower extremity. Electronically signed by: [place] MD 11/27/2023 11:07 PM CDT Due to temporary technical issues with the PACS/Fluency reporting system, reports are being signed by the in house radiologist without review as a courtesy to ensure prompt reporting. The interpreting r adiologist is fully responsible for the content of the report.
== END 2023-11-28 03:03 | disposition home or self-care (01) ==
LOC: ER 21:01
DX: M79.662 Pain in left lower leg (principal); E08.65 Diabetes mellitus due to underlying condition with hyperglycemia
CPT/HCPCS: 96361; 85025; 80048; 36415; 82947; 93971; 96372; 96374; 99284; J7030

== ENCOUNTER 2024-06-10 11:48 | Emergency (ER) | payer BC ==
--- OUTSIDE RECORDS SUMMARY | 2024-06-10 11:52 | XMS REPORT | Clinical Summary ---
Author Name Unknown Organization [facility] Address [address] [place] [address] Care Team Providers Care Transit Survey Worker Name Role Phone Sandra Reis MD Primary Care Provider [phone] Nazario Barros MD Unavailable Jana Gamble MD Unavailable Baylee Del Real MD Unavailable [phone] Panchito Narayan MD Unavailable Allergies Active Allergy Reactions Criticality Noted Date Comments Sulfamethoxazole-Trimethoprim 2016 Empagliflozin GI Intolerance 07/19/2023 Penicillins Anaphylaxis High 11/09/2016 Medications * This document contains information received from the source organization and may not represent a complete record from that organization. blood-glucose meter kitIndications:Di abetes mellitus without mention of complication, type II or unspecified type, uncontrolled Use to check blood glucose as directed. 1 each 1 02/14/20 20 Active insulin aspart U-100 (NovoLOG Flexpen U-100 Insulin) 100 unit/mL (3 mL) insulin penIndications:Ty pe 2 diabetes mellitus with hyperglycemia Inject 15-25 Units under the skin 3 (three) times a day before meals. Take before meals as per the instructions provided 30 mL 11 12/17/19 21 Active insulin glargine (LANTUS SOLOSTAR) 100 unit/mL (3 mL) insulin penIndications:Ty pe 2 diabetes mellitus with hyperglycemia Inject 23 Units under the skin twice daily. 15 mL 12/17/19 Active BD Sharon 2nd Gen Pen Needle 32 gauge x 5/32" ndleIndications:D iabetes mellitus without mention of complication, type II or unspecified type, uncontrolled USE 4 TIMES DAILY 200 each 3 03/03/20 Active fenofibrate micronized (LOFIBRA) 134 mg capsuleIndication s:Mixed hyperlipidemia Take 1 capsule (134 mg) by mouth every morning before breakfast. 90 capsule 3 03/31/20 21 Active blood sugar diagnostic (glucose blood) strpIndications:T ype 2 diabetes mellitus with hyperglycemia,Jasmeet g term current use of insulin Use to check BG 3 times daily before meals. 100 strip 11 05/10/20 Active flash glucose sensor (FreeStyle Catrachita 14 Day Sensor) kitIndications:Ty pe 2 diabetes mellitus with hyperglycemia,Jasmeet g term current use of insulin 1 kit by miscellaneous route daily. For blood glucose monitoring at least 4 times daily. Change sensor every 14 days. 3 kit 05/10/20 Active empagliflozin (Jardiance) 10 mg tabIndications:Ty pe 2 diabetes mellitus with hyperglycemia Take 10 mg by mouth every morning before breakfast. 30 tablet 6 05/10/20 21 024 Discontin ued(Other /Not Applicabl e) megestrol (MEGACE) 40 mg tabletIndications :Malignant neoplasm of endometrium,Prese nce of intrauterine contraceptive device,Complex atypical endometrial hyperplasia Take 2 tablets (80 mg) by mouth twice daily. 60 tablet 6 11/20/19 22 024 Discontin ued(Thera py completed ) hydroCHLOROthiazi de (HYDRODIURIL) 25 mg tabletIndications :Hypertension Take 1 tablet (25 mg) by mouth every morning. 180 tablet 1 04/29/20 22 024 Discontin ued(Other /Not Applicabl e) lisinopril (PRINIVIL,ZESTRIL ) 40 mg tabletIndications :Hypertension Take 1 tablet (40 mg) by mouth every morning. 90 tablet 3 04/29/20 22 024 Discontin ued(Other /Not Applicabl e) amLODIPine (NORVASC) 5 mg tabletIndications :Hypertension TAKE 1 TABLET BY MOUTH TWICE A DAY 180 tablet 1 10/26/19 23 024 Discontin ued(Other /Not Applicabl e) Active Problems Problem Noted Date Diagnosed Date Complex atypical endometrial hyperplasia 021 Excessive and frequent menstruation with irregul ar cycle 10/23/2020 Positive cervical high risk HPV DNA test 021 FDC current use of insulin 04/23/2020 Sedentary lifestyle [...] Department Care Team Description 07/19/2023 11:00 AM MUFFLER INSTALLER Follow-Up [facility] [place] - Gynecology [address] [place] [id number] Sandra Reis MD Endometrioid adenocarcinoma, NOS of endometrium (Primary Dx); Malignant neoplasm of endometrium; Complex atypical endometrial hyperplasia; Presence of intrauterine contraceptive device; Morbid (severe) obesity due to excess calories 07/19/2023 Documentation [facility] [address] [place] [address], 6[address] [place] [address] Sandra Reis MD 07/19/2023 Travel after 06/11/2023 Immunizations Name Administration Dates Next Due Pfizer SARS-CoV-2 Vaccination (Purple Cap) 02/21,01/28/2021 Surgical History Surgery Date Site/Laterality Comments MD DILATION & CURETTAGE DX&/THER NONOBSTETRIC 12/23/2016 Vagina /N/A Procedure: DILATION AND CURETTAGE, DIAGNOSTIC AND THERAPEUTIC (NONOBSTETRICAL); Surgeon: Sandra Reis MD; Location: MAIN OR; Service: PARADI OPERATOR - GYNECOLOGIC ONCOLOGY Medical devices from this surgery are in the Medical Devices section. MD INSERTION INTRAUTERINE DEVICE IUD 12/23/2016 Vagina /N/A Procedure: INSERTION OF INTRAUTERINE DEVICE; Surgeon: Sandra Reis MD; Location: MAIN OR; Service: PARADI OPERATOR - GYNECOLOGIC ONCOLOGY Medical devices from this surgery are in the Medical Devices section. MD LAPAROSCOPY W/RMVL ADNEXAL STRUCTURES 12/23/2016 Vagina /Left Procedure: SURGICAL LAPAROSCOPYWITH LEFT OVARIAN CYSTECTOMY; Surgeon: Sandra Reis MD; Location: MAIN OR; Service: PARADI OPERATOR - GYNECOLOGIC ONCOLOGY Medical devices from this surgery are in the Medical Devices section. TYMPANOSTOMY TUBE PLACEMENT 06/26/1988 - 06/25/1989 several times as a young child MD HYSTEROSCOPY BX ENDOMETRIUM&/POLYPC W/WO D&C 03/17/2020 Vagina /N/A Procedure: HYSTEROSCOPY; WITH BIOPSY OF ENDOMETRIUM , WITH D & C; Surgeon: Sandra Reis MD; Location: MAIN OR; Service: PARADI OPERATOR - GYNECOLOGIC ONCOLOGY Medical devices from this surgery are in the Medical Devices section. MD INSERTION INTRAUTERINE DEVICE IUD 03/17/2020 Vagina /N/A Procedure: INSERTION OF INTRAUTERINE DEVICE; Surgeon: Sandra Reis MD; Location: MAIN OR; Service: PARADI OPERATOR - GYNECOLOGIC ONCOLOGY Medical devices from this [...] pur e alcohol) none since early 06/2016 Comments Unknown Sex and Gender Information Value Date Recorded Sex Assigned at Not on file Legal Sex Female 4:45 PM CDT Gender Identity Not on file Sexual Orientation Not on file Occupation Industry Job Start Date Job End Date Not on file Not on file Not on file Not on file Obstetrics History Para Term AB IAB SAB Ectopic Multiple Livin g Live Births 0 0 0 0 0 0 0 0 0 0 Last Filed Vital Signs Vital Sign Reading Time Taken Comments Blood Pressure 138/85 07/19/2023 10:54 AM MUFFLER INSTALLER Pulse 100 07/19/2023 10:54 AM MUFFLER INSTALLER Temperature 36.6 C (97.9 F) 07/19/2023 1 0:54 AM MUFFLER INSTALLER Respiratory Rate 18 07/19/2023 10:5 4 AM MUFFLER INSTALLER Oxygen Saturation 97% 07/19/2023 10: 54 AM MUFFLER INSTALLER Inhaled Oxygen Concentration - - Weight 143.7 kg (316 lb 12.8 oz) 2023 10:54 AM MUFFLER INSTALLER Height - - Body Mass Index 52.78 04/29/2022 10:25 AM CDT Plan of Treatment Upcoming Encounters Date Type Department Care Team (Late st Contact Info) Description 07/19/2024 9:00 AM MUFFLER INSTALLER Lab [facility] [place] [facility] [address] [place] [address] Sandra Reis MD [address] [place], [place] [id number] [email or web address] 07/19/2024 9:30 AM MUFFLER INSTALLER Follow-Up [facility] [place] - Gynecology [address] [place] [address] Sandra Reis MD [address] [place], [place] [id number] [email or web address] [email or web address], [email or web address] [facility] [place] [address] [email or web address] Maintenance Due Date Last Done Comments COVID-19 Vaccine (2023-2 5 season) 2024 02/21/2021, 01/28/2021 Influenza Vaccine (#1) 2024 Pneumococcal Vaccine: Pediatrics (0 to 5 Years) and At-Risk Patients (6 to 64 Years) Aged Out No longer eligible b ased on patient's age to complete this topic Medical Devices Implanted Type Area Hris Coordinator Device Identifier Shelf Expiration Date Model / Serial / Lot Willis Mirena Intrauterine System Implanted:Qty: 1 on 12/23/2016 by Sandra Reis MD at [facility] Implant N/A: Vagina WILLIS WAI 08/23/2019 / / [id number] Description:*from Pharmacy Mirena ( Levonorgestrel-R eleasing Intrauterine System) 52 Mg Implanted:Qty: 1 on 03/17/2020 by Sandra Reis MD at [facility] Implant N/A: Uterus 05/25/2022 [id number] / [id number] / [id number] Description:*from Pharmacy Procedures Procedure Name Priority Date/Time Associated Diagnosis Comments PATHOLOGY BIOPSY INTERPRETATION Routine 07/19/2023 12:10 PM MUFFLER INSTALLER Complex atypical endometrial hyperplasia Presence of intrauterine contraceptive device Endometrioid adenocarcinoma, NOS of endometrium HUMAN CHORIONIC GONADOTROPIN, QUALITATIVE Routine 07/19/2023 10:29 AM MUFFLER INSTALLER Malignant neoplasm of endometrium Complex atypical endometrial hyperplasia Presence of intrauterine contraceptive device after 06/11/2023 Results * Pathology Biopsy Interpretation (07/19/2023 12:10 PM MUFFLER INSTALLER) Submitted Clinical History Complex atypical endometrial hyperplasia [N85.02] Presence of intrauterine contraceptive device [Z97.5] Endometrioid adenocarcinoma, NOS of endometrium [C54.1] 4 2:28 PM MUFFLER INSTALLER [facility] Diagnosis A: Endometrial biops y: Scant minute fragments of inactive endometrium with pseudodecidualization changes consistent with exogenous hormone effect. (See Comment) Fragments of unremarkable smooth muscle. Fragments of unremarkable endocervical epithelium. Background of predominantly mucin. BCL/FQS 4 2:28 PM [facility] Comment Given the scant endometrial tissue present, the findings may not be entirely claims service representative. Clinical correlation is recommended. 4 2:28 PM [facility] Gross Description A: Endometrial biopsy: Multiple rai-white to red-brown tissue admixed with abundant amount of cloudy gelatinous material measuring 1.7 x 1.2 x 0.4 cm in aggregate, entirely submitted in A1. GM 4 2:28 PM [facility] Disclaimer "Some tests reported here may have been developed and performance characteristics determined by [facility]. These tests have not been specifically cleared or approved by the U.S. Food and Drug Administration. If applicable, controls were reviewed and showed appropriate reactivity." 4 2:28 PM [facility] Tissue (Endometrium) Non-blood Collection / Unknown 07/19/2023 12:10 PM MUFFLER INSTALLER 07/20/2023 12:22 PM MUFFLER INSTALLER us Sandra Reis MD LAB PATHOLOGY ORDERABLES Fin al Result [facility] [address] [place] [id number], [place] * U HCG (07/19/2023 10:29 AM MUFFLER INSTALLER) Urine Human Chorionic Gonadotropin Qualitative Negative Negative 07/19/2023 10:43 AM MUFFLER INSTALLER [place] Urine Voided urine specimen / Unknown Non-blood Collection / Unknown 07/19/2023 10:29 AM MUFFLER INSTALLER 07/19/2023 10:29 AM MUFFLER INSTALLER Narrative [place] - 07/19/2023 10:43 AM MUFFLER INSTALLER Very dilute urine specimens may cause false negative results. Suggest repeat in 48 hours with a first morning voided urine or request quantitative serum beta HCG test. The ICON 20 hCG Serum/Urine test employs a solid phase chromatographic immunoassay technology to selectively detect elevated levels of hCG in urine with a high degree of sensitivity. us Sandra Reis MD URINE ORDERABLES Final Resul t SUE MADRID [facility] Sue [place] [address] [facility], [address] [place] [address] after 06/11/[address] [facility] [place] PPO POS [place] PPO POS [phone] [id number] Care Teams Transit Survey Worker Relationship Specialty Start Date End Date Sandra Reis MD [email or web address] PCP - General Gynecologic Medical Oncology 10/24/16 Nazario Barros MD [address] [place] [phone] [email or web address] PCP - External Referring 10/24/16 Jana Gamble MD [address] [place] [address] [phone] [email or web address] Consulting Physician Internal Medicine 02/14/20 Baylee Del Real MD [address] [place] [address] [phone] [email or web address] Consulting Physician Gynecologic Medical Oncology 01/27/17 Panchito Narayan MD [address] [place] [address] [phone] [email or web address] Consulting Physician Endocrinology 12/29/16
--- NOTE | 2024-06-10 12:23 | EDPHYS ---
Physician Documentation [facility] Name: Jass Dukes Age: 38 yrs Sex: Female : 1985 Arrival Date: 06/10/2024 Time: 11:48 Bed 11 Private MD: ED Physician Av Coburn HPI: 06/10 12:16 This 38 yrs old Female presents to ER via Ambulatory with complaints of Drainage From cp Ear, Ear Pain. 12:16 The patient presents with pain, that is acute, tenderness. The complaints affect the cp left ear and right ear. Onset: The symptoms/episode began/occurred 3 day(s) ago. Associated signs and symptoms: Pertinent positives: drainage from left ear, decreased hearing, Pertinent negatives: cough, fever, sinus trouble, vomiting. Severity of symptoms: in the emergency department the symptoms are unchanged despite home interventions. Historical: - Allergies: 12:03 Bactrim; cm10 12:03 GABAPENTIN; cm10 12:03 PENICILLINS; cm10 - Home Meds: 12:03 Eliquis 5 mg oral tablet 1 tab 2 times per day [Active]; cm10 - PMHx: 12:03 Diabetes - IDDM; endometrial lining CA; Hypertension; Deep vein thrombosis; cm10 - PSHx: 12:03 ear tubes; ovarian cysts; Tonsillectomy; cm10 - Immunization history:: Adult Immunizations up to date. - Infectious Disease History:: Denies. - Social history:: Smoking status: Patient denies any tobacco usage or history of. ROS: 12:17 Eyes: Negative for injury, pain, redness, and discharge, cp 12:17 Constitutional: Negative for body aches, chills, fever, poor PO intake, 12:17 ENT: Positive for drainage from ear(s), ear pain, hearing loss, Negative for sore throat, difficulty swallowing, difficulty handling secretions, 12:17 Respiratory: Negative for cough, shortness of breath, wheezing, 12:17 Abdomen/GI: Negative for abdominal pain, nausea, vomiting, and diarrhea, 12:17 Skin: Negative for rash, 12:17 All other systems are negative, Exam: 12:19 Head/Face: Normocephalic, atraumatic. cp 12:19 Constitutional: The patient appears in no acute distress, alert, awake, non-toxic, well developed, well nourished, 12:19 Eyes: Periorbital structures: appear normal, Conjunctiva: normal, no exudate, no injection, Sclera: no appreciated abnormality, Lids and lashes: appear normal, bilaterally, 12:19 ENT: External ear(s): pain with movement, that is mild, of the pinna of left ear, Ear canal(s): bleeding, is not appreciated, swelling, that is minimal, of the left canal, TM's: bulging, on the left, Nose: is normal, Mouth: Lips: moist, Oral mucosa: moist, Posterior pharynx: Airway: no evidence of obstruction, patent, 12:19 Chest/axilla: Inspection: normal, Palpation: is normal, no crepitus, no tenderness, 12:20 Cardiovascular: Rate: tachycardic, Rhythm: regular, cp 12:20 Respiratory: the patient does not display signs of respiratory distress, Respirations: normal, no use of accessory muscles, no retractions, labored breathing, is not present, Breath sounds: are clear throughout, no decreased breath sounds, no stridor, no wheezing, 12:20 Abdomen/GI: Exam negative for discomfort, distension, guarding, Inspection: abdomen appears normal, Vital Signs: 12:02 BP 171 / 106; Pulse 107; Resp 18; Temp 98.7(O); Pulse Ox 100% on R/A; Weight 138.35 kg; cm10 Height 5 ft. 5 in. ; Pain 10/10; 12:40 BP 161 / 95; Pulse 81; Resp 17; Pulse Ox 99% on R/A; rs5 12:02 Body Mass Index 50.75 (138.35 kg, 165.1 cm) cm10 12:02 Pain Scale: Adult cm10 MDM: 12:06 Medical Screening Exam initiated cp 12:15 Differential diagnosis: otitis media, otitis externa, ruptured TM, foreign body, cp cerumen impaction, barotrauma . 12:22 Data reviewed: vital signs, nurses notes, and as a result, I will discharge patient. 12:22 I considered the following discharge prescriptions or medication management in the emergency department Medications were administered in the Emergency Department. See MAR. Counseling: I had a detailed discussion with the patient and/or guardian regarding the historical points, exam findings, and any diagnostic results supporting the discharge/admit diagnosis, the need for outpatient follow up, an ENT specialist, to return to the emergency department if symptoms worsen or persist or if there are any questions or concerns that arise at home. Administered Medications: 12:16 Drug: AZITHromycin PO 500 mg PO once Route: PO; rs5 12:16 Drug: Ibuprofen PO 800 mg PO once Route: PO; rs5 12:16 Drug: Dexamethasone PO 10 mg PO once Route: PO; rs5 Disposition: 18:11 Co-signature as Attending Physician, Av Coburn MD I reviewed the patient's care rn provided by the Advanced Practice Provider and agree with the diagnosis and treatment plan. Disposition Summary: 06/10/24 12:22 Discharge Ordered Notes: Location: Home cp Problem: new cp Symptoms: have improved cp Condition: Stable cp Diagnosis - Acute suppurative otitis media - bilateral cp Followup: cp - With: Siri Cedillo MD - When: 1 week - Reason: Recheck today's complaints Discharge Instructions: - Discharge Summary Sheet cp - Otitis Media, Adult cp Forms: - Medication Reconciliation Form cp - Antibiotic Education cp - Prescription Opioid Use cp - Patient Portal Instructions cp - Leadership Thank You Letter cp Prescriptions: - clarithromycin 500 mg Oral tablet - take 1 tablet ORAL route every 12 hours for 14 days; 28 tablet; Refills: 0, cp Product Selection Permitted - Anaprox DS 550 mg Oral Tablet - take 1 tablet ORAL route every 12 hours As needed; 20 tablet; Refills: 0, cp Product Selection Permitted Signatures: Av Coburn MD MD rn Page, Corey, PA PA cp Roger Fontana RN RN rs5 Celi Marquis RN RN cm10
--- NOTE | 2024-06-10 12:23 | ER ---
Nurse's Notes [facility] Name: Jass Dukes Age: 38 yrs Sex: Female : 1985 Arrival Date: 06/10/2024 Time: 11:48 Bed 11 Private MD: Diagnosis: Acute suppurative otitis media-bilateral Presentation: 06/10 12:02 Chief complaint: Patient states: BILATERAL EAR PAIN ONSET MONDAY. PT REPORTS HAVING cm10 DRAINAGE FROM LEFT EAR. Coronavirus screen: Client denies travel out of the [place] in the last 14 days. Ebola Screen: Patient denies travel to an Ebola-affected area in the 21 days before illness onset. No symptoms or risks identified at this time. Initial Sepsis Screen: Does the patient meet any 2 criteria? HR > 90 bpm. Does the patient have a suspected source of infection? No. Patient's initial sepsis screen is negative. Risk Assessment: Do you want to hurt yourself or someone else? Patient reports no desire to harm self or others. Onset of symptoms was June 10, 2024. 12:02 Method Of Arrival: Ambulatory cm10 12:02 Acuity: ANNITA 4 cm10 Triage Assessment: 12:05 General: Appears in no apparent distress. uncomfortable, Behavior is calm, cooperative. cm10 Neuro: No deficits noted. Level of Consciousness is awake, alert, obeys commands, Oriented to person, place, time, situation, Appropriate for age. Respiratory: No deficits noted. Airway is patent Respiratory effort is even, unlabored, Respiratory pattern is regular, symmetrical. Historical: - Allergies: 12:03 Bactrim; cm10 12:03 GABAPENTIN; cm10 12:03 PENICILLINS; cm10 - Home Meds: 12:03 Eliquis 5 mg oral tablet 1 tab 2 times per day [Active]; cm10 - PMHx: 12:03 Diabetes - IDDM; endometrial lining CA; Hypertension; Deep vein thrombosis; cm10 - PSHx: 12:03 ear tubes; ovarian cysts; Tonsillectomy; cm10 - Immunization history:: Adult Immunizations up to date. - Infectious Disease History:: Denies. - Social history:: Smoking status: Patient denies any tobacco usage or history of. Screenin:04 [facility] ED Fall Risk Assessment (Adult) History of falling in the last 3 months, rs5 including since admission No falls in past 3 months (0 pts) Confusion or Disorientation No (0 pts) Intoxicated or Sedated No (0 pts) Impaired Gait No (0 pts) Mobility Assist Device Used No (0 pt) Altered Elimination Score/Fall Risk Level 0 - 2 = Low Risk Oriented to surroundings, Maintained a safe environment. 12:10 Abuse screen: Denies threats or abuse. Denies injuries from another. Nutritional ss screening: No deficits noted. Tuberculosis screening: Never had TB. Assessment: 12:10 General: Appears in no apparent distress. comfortable, Behavior is calm, cooperative. ss Pain: Complains of pain in right ear and left ear Pain currently is 10 out of 10 on a pain scale. Quality of pain is described as aching, Pain began 2-3 days ago. Is continuous. Neuro: Level of Consciousness is awake, alert, obeys commands, Oriented to person, place, time, situation, Speech is normal, Facial symmetry appears normal. Respiratory: Airway is patent Respiratory effort is even, unlabored, Respiratory pattern is regular, symmetrical. GI: Patient currently denies diarrhea, nausea, vomiting. EENT: Oral mucosa is moist. Throat is clear. Derm: Skin is pink, warm \T\ dry. normal. 12:43 Reassessment: Patient and/or family updated on plan of care and expected duration. Pain rs5 level reassessed. Patient is alert, oriented x 3, equal unlabored respirations, skin warm/dry/pink. Vital Signs: 12:02 BP 171 / 106; Pulse 107; Resp 18; Temp 98.7(O); Pulse Ox 100% on R/A; Weight 138.35 kg; cm10 Height 5 ft. 5 in. ; Pain 10/10; 12:40 BP 161 / 95; Pulse 81; Resp 17; Pulse Ox 99% on R/A; rs5 12:02 Body Mass Index 50.75 (138.35 kg, 165.1 cm) cm10 12:02 Pain Scale: Adult cm10 ED Course: 11:52 Patient arrived in ED. sj2 11:52 Favio Lynch PA is PHCP. cp 11:53 Av Coburn MD is Attending Physician. cp 12:03 Triage completed. cm10 12:04 No provider procedures requiring assistance completed. rs5 12:05 Arm band placed on left wrist. Patient placed in an exam room, on a stretcher. cm10 12:10 Patient has correct armband on for positive identification. 12:22 Siri Cedillo MD is Referral Physician. anish 12:26 Roger Fontana, RN is Primary Nurse. rs5 12:41 Provided Education on: discharge instructions . rs5 12:41 Patient did not have IV access during this emergency room visit. rs5 Administered Medications: 12:16 Drug: AZITHromycin PO 500 mg PO once Route: PO; rs5 12:16 Drug: Ibuprofen PO 800 mg PO once Route: PO; rs5 12:16 Drug: Dexamethasone PO 10 mg PO once Route: PO; rs5 Medication: 12:10 VIS not applicable for this client. Outcome: 12:22 Discharge ordered by MD. cp 12:41 Discharged to home ambulatory, [facility] 12:41 Condition: stable rs5 12:41 Discharge instructions given to patient, family, Instructed on discharge instructions, follow up and referral plans. medication usage, Demonstrated understanding of instructions, follow-up care, medications, Prescriptions given X 1, 12:42 Patient left the ED. rs5 Signatures: Vonnie Lester, RN RN Favio Lynch, PA PA Roger Lombardi, RN RN rs5 Celi Marquis RN RN cm10 Ashlyn Wilson sj2
[2024-06-10] MEDS ORDERED: dexAMETHasone 4 MG TAB ONE (12:38)
[2024-06-10] MEDS ORDERED: AZITHROMYCIN 250 MG TAB ONE (12:38)
[2024-06-10] MEDS ORDERED: IBUPROFEN 400 MG TAB ONE (12:38)
[2024-06-10 12:47] VITALS: BP 171/106; TEMP 98.7; O2SAT 100
== END 2024-06-10 12:42 | disposition home or self-care (01) ==
LOC: ER 11:48
DX: H66.003 Acute suppurative otitis media without spontaneous rupture of ear drum, bilateral (principal); E11.9 Type 2 diabetes mellitus without complications; I10 Essential (primary) hypertension; Z86.718 Personal history of other venous thrombosis and embolism; Z79.01 Long term (current) use of anticoagulants
CPT/HCPCS: 99283; J8540

== ENCOUNTER 2024-07-23 17:24 | Emergency (ER) | payer BC ==
[2024-07-23] MEDS ORDERED: DOXYCYCLINE 100 MG CAP PO ONE (18:56)
[2024-07-23] MEDS ORDERED: HYDROCODONE/APAP 7.5/325 MG TAB ONE (18:56)
--- NOTE | 2024-07-23 18:57 | ER ---
Nurse's Notes [facility] Name: Jass Dukes Age: 38 yrs Sex: Female : 1985 Arrival Date: 07/23/2024 Time: 17:24 Bed Treatment Private MD: Diagnosis: Cutaneous abscess of right breast Presentation: 07/23 17:42 Chief complaint: Patient states: she has a reddened area on her right breast. patient ap3 currently rates her pain as an 8/10 on the pain scale. Coronavirus screen: At this time, the client does not indicate any symptoms associated with coronavirus-19. Ebola Screen: No symptoms or risks identified at this time. Initial Sepsis Screen: Does the patient meet any 2 criteria? HR > 90 bpm. Does the patient have a suspected source of infection? No. Patient's initial sepsis screen is negative. Risk Assessment: Do you want to hurt yourself or someone else? Patient reports no desire to harm self or others. Onset of symptoms is unknown. 17:42 Method Of Arrival: Ambulatory ap3 17:42 Acuity: ANNITA 3 ap3 Triage Assessment: 17:44 General: Appears in no apparent distress. Behavior is calm, cooperative, appropriate ap3 for age. Pain: Complains of pain in right breast Pain currently is 8 out of 10 on a pain scale. Neuro: Level of Consciousness is awake, alert, obeys commands, Oriented to person, place, time, situation, Appropriate for age. Cardiovascular: Patient's skin is warm and dry. Respiratory: Airway is patent Respiratory effort is even, unlabored, Respiratory pattern is regular, symmetrical. 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 - Infectious Disease History:: Denies. - Social history:: Smoking status: Patient denies any tobacco usage or history of. Screenin:45 [facility] ED Fall Risk Assessment (Adult) History of falling in the last 3 months, ap3 including since admission No falls in past 3 months (0 pts) Confusion or Disorientation No (0 pts) Intoxicated or Sedated No (0 pts) Impaired Gait No (0 pts) Mobility Assist Device Used No (0 pt) Altered Elimination No (0 pt) Score/Fall Risk Level 0 - 2 = Low Risk Oriented to surroundings, Maintained a safe environment, Educated pt \T\ family on fall prevention, incl call for assistance when getting out of bed, Assessed \T\ reinforced patient's understanding of fall precautions, Hourly rounding (assess needs \T\ fall precautionary measures) done, Used ambulatory aids as needed (educated on \T\ assisted with), Used gait belt as appropriate. Abuse screen: Denies threats or abuse. Nutritional screening: No deficits noted. Tuberculosis screening: No symptoms or risk factors identified. Assessment: 18:57 General: Appears uncomfortable, well groomed, well developed, well nourished, Behavior me1 is calm, cooperative, appropriate for age, Reports she has a reddened area on her right breast. patient currently rates her pain as an 8/10 on the pain scale. Pain: Complains of pain in right breast Pain does not radiate. Pain currently is 8 out of 10 on a pain scale. Quality of pain is described as sharp, Pain began 2-3 days ago. Is continuous. Neuro: Level of Consciousness is awake, alert, obeys commands, Oriented to person, place, time, situation, Appropriate for age. Cardiovascular: Patient's skin is warm and dry. Respiratory: Airway is patent Respiratory effort is even, unlabored, Respiratory pattern is regular, symmetrical. GI: No signs and/or symptoms were reported involving the gastrointestinal system. : No signs and/or symptoms were reported regarding the genitourinary system. EENT: No signs and/or symptoms were reported regarding the EENT system. Derm: Bruising that is bright red, on right breast. Musculoskeletal: No signs and/or symptoms reported regarding the musculoskeletal system. Vital Signs: 17:42 Pulse 101; Resp 17; Temp 98.7(O); Pulse Ox 100% ; Weight 142.88 kg; Height 5 ft. 5 in. ap3 ; Pain 8/10; 17:45 BP 143 / 97; ap3 19:13 BP 138 / 96; Pulse 98; Resp 17; Temp 98.5; Pulse Ox 100% ; me1 17:42 Body Mass Index 52.42 (142.88 kg, 165.1 cm) ap3 17:42 Pain Scale: Adult ap3 ED Course: 17:27 Patient arrived in ED. al6 17:30 [facility] Reed [facility]C [facility] kb 17:30 Robby Hall MD is Attending Physician. kb 17:44 Triage completed. ap3 17:45 Arm band placed on. ap3 18:57 Yamilet Bateman, RN is Primary Nurse. me1 18:57 Patient has correct armband on for positive identification. Bed in low position. Call me1 light in reach. Side rails up X 1. Provided Education on: POC. Verbalized understanding.. 18:57 No provider procedures requiring assistance completed. me1 19:05 Patient did not have IV access during this emergency room visit. me1 Administered Medications: 19:02 Drug: Doxycycline PO 100 mg PO once Route: PO; me1 19:05 Follow up: Response: No adverse reaction me1 19:02 Drug: Hydrocodone-Acetaminophen PO (7.5 mg-325 mg) 1 tabs PO once Route: PO; me1 19:04 Follow up: Response: No adverse reaction; Pain is decreased me1 Medication: 18:57 VIS not applicable for this client. me1 Outcome: 18:57 Discharge ordered by . kb 19:13 Discharged to home ambulatory, me1 19:13 Condition: stable 19:13 Discharge instructions given to patient, Instructed on discharge instructions, follow up and referral plans. medication usage, Demonstrated understanding of instructions, follow-up care, medications, Prescriptions given X 2, 19:13 Patient left the ED. me1 Signatures: Elva Reed FNP-C FNP-Lizzette Stoll RN RN ap3 Yamilet Bateman, PETER RN me1 Beth Sutherland al6 Corrections: (The following items were deleted from the chart) 18:57 17:42 Chief complaint: Patient states: she has a reddened area on her right breast. me1 patient currently rates her pain as an 8/10 on the pain scale ap3
--- NOTE | 2024-07-23 18:57 | EDPHYS ---
Physician Documentation [facility] Name: Jass Dukes Age: 38 yrs Sex: Female : 1985 Arrival Date: 07/23/2024 Time: 17:24 Bed Treatment Private MD: ED Physician Robby Hall HPI: 07/23 18:54 This 38 yrs old Female presents to ER via Ambulatory with complaints of Breast Lump. kb 18:54 Pt is a 38 year old female who presents for lump, erythema, warmth and pain to right kb breast that started 6 days ago and now has gotten worse. Denies fever. States she was unable to get into PCP . 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 - Infectious Disease History:: Denies. - Social history:: Smoking status: Patient denies any tobacco usage or history of. ROS: 18:51 Constitutional: As per HPI kb Exam: 18:51 Constitutional: This is a well developed, well nourished patient who is awake, alert, kb and in no acute distress. Head/Face: Normocephalic, atraumatic. ENT: Moist Mucous membranes Cardiovascular: Regular rate Respiratory: Respirations even and unlabored. No increased work of breathing. Talking in full sentences MS/ Extremity: Pulses equal, no cyanosis. Neurovascular intact. Full, normal range of motion. Neuro: Awake and alert, GCS 15, oriented to person, place, time, and situation. 18:51 Skin: abscess, that is moderate sized, of the right breast, with induration, with surrounding cellulitis, that is very mild, Vital Signs: 17:42 Pulse 101; Resp 17; Temp 98.7(O); Pulse Ox 100% ; Weight 142.88 kg; Height 5 ft. 5 in. ap3 ; Pain 8/10; 17:45 BP 143 / 97; ap3 19:13 BP 138 / 96; Pulse 98; Resp 17; Temp 98.5; Pulse Ox 100% ; me1 17:42 Body Mass Index 52.42 (142.88 kg, 165.1 cm) ap3 17:42 Pain Scale: Adult ap3 MDM: 17:30 Medical Screening Exam initiated kb 18:52 Differential diagnosis: abscess, cellulitis, insect bite. Data reviewed: vital signs, kb nurses notes. Test considered but Not performed: Ultrasound US considered but no drainable abscess appreciated on exam. Counseling: I had a detailed discussion with the patient and/or guardian regarding the historical points, exam findings, and any diagnostic results supporting the discharge/admit diagnosis, the need for outpatient follow up, a family practitioner, to return to the emergency department if symptoms worsen or persist or if there are any questions or concerns that arise at home. Administered Medications: 19:02 Drug: Doxycycline PO 100 mg PO once Route: PO; me1 19:05 Follow up: Response: No adverse reaction me1 19:02 Drug: Hydrocodone-Acetaminophen PO (7.5 mg-325 mg) 1 tabs PO once Route: PO; me1 19:04 Follow up: Response: No adverse reaction; Pain is decreased me1 Disposition: 20:35 Co-signature as Attending Physician, Robby Hall MD I reviewed the patient's care rt provided by the Advanced Practice Provider and agree with the diagnosis and treatment plan. Disposition Summary: 07/23/24 18:57 Discharge Ordered Notes: Location: Home kb Condition: Stable kb Diagnosis - Cutaneous abscess of right breast kb Followup: kb - With: Emergency Department - When: As needed - Reason: Worsening of condition Followup: kb - With: Private Physician - When: 2 - 3 days - Reason: Recheck today's complaints, Continuance of care, Re-evaluation by your physician Discharge Instructions: - Discharge Summary Sheet kb - Skin Abscess, [id number] kb Forms: - Medication Reconciliation Form kb - Antibiotic Education kb - Prescription Opioid Use kb - Patient Portal Instructions kb - Leadership Thank You Letter kb Prescriptions: - Doxycycline Hyclate 100 mg Oral Tablet - take 1 tablet ORAL route every 12 hours; 20 tablet; Refills: 0, Product kb Selection Permitted - Diclofenac Sodium 75 mg Oral tablet, delayed release (enteric coated) - take 1 tablet ORAL route 2 times per day As needed; 30 tablet; Refills: 0, kb Product Selection Permitted Signatures: Elva Reed, Lizzette Pittman, RN RN ap3 Robby Hall MD MD rt Yamilet Bateman, RN RN me1
--- OUTSIDE RECORDS SUMMARY | 2024-07-24 02:33 | XMS REPORT | Clinical Summary ---
Author Name Unknown Organization [facility] Address [address] [place] [address] Care Team Providers Care Communications Supervisor Name Role Phone Sandra Reis MD Primary Care Provider [phone] Nazario Barros MD Unavailable [phone] Jana Gamble MD Unavailable Baylee Del Real MD Unavailable [phone] Panchito Narayan MD Unavailable Allergies Active Allergy Reactions Criticality Noted Date Comments Sulfamethoxazole-Trimethoprim 2016 Gabapentin Hives 07/19/2024 Empagliflozin GI Intolerance 07/19/2023 Penicillins Anaphylaxis High 11/09/2016 Medications * This document contains information received from the source organization and may not represent a complete record from that organization. blood-glucose meter kitIndications:Roselyn betes mellitus without mention [...] skin twice daily. 15 mL 11 12/17/19 Active BD Sharon 2nd Gen Pen Needle 32 gauge x 532" ndleIndications:Di abetes mellitus without mention of complication, type II or unspecified type, uncontrolled USE 4 TIMES DAILY 200 each 3 03/03/20 Active fenofibrate micronized (LOFIBRA) 134 mg capsuleIndications :Mixed hyperlipidemia Take 1 capsule (134 mg) by mouth every morning before breakfast. 90 capsule 3 03/31/20 Active blood sugar diagnostic (glucose blood) strpIndications:Ty pe 2 diabetes mellitus with hyperglycemia,MCC current use of insulin Use to check BG 3 times daily before meals. 100 strip 11 05/10/20 Active flash glucose sensor (FreeStyle Catrachita 14 Day Sensor) kitIndications:Typ e 2 diabetes mellitus with hyperglycemia,intermodal dispatcher current use of insulin 1 kit by miscellaneous route daily. For blood glucose monitoring at least 4 times daily. Change sensor every 14 days. 3 kit 11 05/10/20 Active Eliquis 5 mg tablet Take 1 tablet (5 mg) by mouth every 12 (twelve) hours. 05/03/20 Active FLUoxetine (PROzac) 20 mg capsule Take 1 capsule (20 mg) by mouth daily. 06/10/20 Active metoprolol succinate (TOPROL XL) 50 mg 24 hr tablet Take 1 tablet (50 mg) by mouth daily. 05/11/20 Active nystatin (MYCOSTATIN) 100,000 units/g creamIndications:C andidiasis of vulva Apply topically to affected area(s) 3 (three) times a day. 30 g 1 07/19/19 25 Active Active Problems Problem Noted Date Diagnosed Date Complex atypical endometrial hyperplasia 021 Excessive and frequent menstruation with irregul ar cycle 10/23/2020 Positive cervical high risk HPV DNA test 021 MCC current use of insulin 04/23/2020 Sedentary lifestyle [...] Encounters Date Type Department Care Team Description 07/19/2024 9:30 AM PIGSKIN TRIMMER Follow-Up [facility] [place] - Gynecology [address] [place] [address] Sandra Reis MD Rucker, Erika, PA Endometrioid adenocarcinoma, NOS of endometrium (Primary Dx); Complex atypical endometrial hyperplasia; Presence of intrauterine contraceptive device; Breast lump present; Candidiasis of vulva 07/19/2024 Documentation [facility] [address] [facility], 6th [place] [address] Elissa Bucio PA 07/19/2024 Travel after 07/24/2023 Immunizations Name Administration Dates Next Due Pfizer SARS-CoV-2 Vaccination (Purple Cap) 02/21,01/28/2021 Surgical History Surgery Date Site/Laterality Comments WY DILATION & CURETTAGE DX&/THER NONOBSTETRIC 12/23/2016 Vagina /N/A Procedure: DILATION AND CURETTAGE, DIAGNOSTIC AND THERAPEUTIC (NONOBSTETRICAL); Surgeon: Sandra Reis MD; Location: MAIN OR; Service: DATABASE MARKETING SPECIALIST - GYNECOLOGIC ONCOLOGY Medical devices from this surgery are in the Medical Devices section. WY INSERTION INTRAUTERINE DEVICE IUD 12/23/2016 Vagina /N/A Procedure: INSERTION OF INTRAUTERINE DEVICE; Surgeon: Sandra Reis MD; Location: MAIN OR; Service: DATABASE MARKETING SPECIALIST - GYNECOLOGIC ONCOLOGY Medical devices from this surgery are in the Medical Devices section. WY LAPAROSCOPY W/RMVL ADNEXAL STRUCTURES 12/23/2016 Vagina /Left Procedure: SURGICAL LAPAROSCOPYWITH LEFT OVARIAN CYSTECTOMY; Surgeon: Sandra Reis MD; Location: MAIN OR; Service: DATABASE MARKETING SPECIALIST - GYNECOLOGIC ONCOLOGY Medical devices from this surgery are in the Medical Devices section. TYMPANOSTOMY TUBE PLACEMENT 06/26/1988 - 06/25/1989 several times as a young child WY HYSTEROSCOPY BX ENDOMETRIUM&/POLYPC W/WO D&C 03/17/2020 Vagina /N/A Procedure: HYSTEROSCOPY; WITH BIOPSY OF ENDOMETRIUM , WITH D & C; Surgeon: Sandra Reis MD; Location: MAIN OR; Service: DATABASE MARKETING SPECIALIST - GYNECOLOGIC ONCOLOGY Medical devices from this surgery are in the Medical Devices section. WY INSERTION INTRAUTERINE DEVICE IUD 03/17/2020 Vagina /N/A Procedure: INSERTION OF INTRAUTERINE DEVICE; Surgeon: Sandra Reis MD; Location: MAIN OR; Service: DATABASE MARKETING SPECIALIST - GYNECOLOGIC ONCOLOGY Medical devices from this surgery are in the Medical Devices section. Medical History Medical History Date Comments Hypertension 2002 Asthma 1992 childhood Polycystic ovarian syndrome 2014 Anemia 2016 Blood transfusion, without reported diagnosis for anemia Postoperative nausea and vomiting history of motion sickness Obesity 2000 Prediabetes 2014 Eustachian tube disorder 1988 Diabetes mellitus Family [...] Sign Reading Time Taken Comments Blood Pressure 112/71 07/19/2024 9:38 AM PIGSKIN TRIMMER Pulse 87 07/19/2024 9:38 AM PIGSKIN TRIMMER Temperature 37.2 C (99 F) 07/19/2024 9:38 AM PIGSKIN TRIMMER Respiratory Rate 17 07/19/2024 9:38 AM PIGSKIN TRIMMER Oxygen Saturation - - Inhaled Oxygen Concentration - - Weight 147 kg (324 lb 1.2 oz) 07/19/2024 9:38 AM PIGSKIN TRIMMER Height - - Body Mass Index 53.99 04/29/2022 10:25 AM CDT Plan of Treatment Upcoming Encounters Date Type Department Care Team (Late st Contact Info) Description 07/16/2025 10:30 AM PIGSKIN TRIMMER Follow-Up MD [facility] [place] - Gynecology [address] [place] [address] Damon Gomez MD [address] [place] [address] [email or web address]. rg Health Maintenance Due Date Last Done Comments COVID-19 Vaccine (2023-2 5 season) 2024 02/21/2021, 01/28/2021 Influenza Vaccine (#1) 2024 Pneumococcal Vaccine: Pediatrics (0 to 5 Years) and At-Risk Patients (6 to 64 Years) Aged Out No longer eligible b ased on patient's age to complete this topic Medical Devices Implanted Type Area Dimension Quarry Supervisor Device Identifier Shelf Expiration Date Model / Serial / Lot Willis Mirena Intrauterine System Implanted:Qty: 1 on 12/23/2016 by Sandra Reis MD at [facility] Implant N/A: Vagina WILLIS WAI 08/23/2019 / / [id number] Description:*from Pharmacy Mirena ( Levonorgestrel-R eleasing Intrauterine System) 52 Mg Implanted:Qty: 1 on 03/17/2020 by Sandra Reis MD at [facility] Implant N/A: Uterus 05/25/2022 [id number] / [id number] Description:*from Pharmacy Procedures Procedure Name Priority Date/Time Associated Diagnosis Comments PATHOLOGY BIOPSY INTERPRETATION Routine 07/19/2024 10:19 AM PIGSKIN TRIMMER Complex atypical endometrial hyperplasia Presence of intrauterine contraceptive device Endometrioid adenocarcinoma, NOS of endometrium HUMAN CHORIONIC GONADOTROPIN, QUALITATIVE Routine 07/19/2024 9:25 AM PIGSKIN TRIMMER Complex atypical endometrial hyperplasia Presence of intrauterine contraceptive device Endometrioid adenocarcinoma, NOS of endometrium after 07/24/2023 Results * Pathology Biopsy Interpretation (07/19/2024 10:19 AM PIGSKIN TRIMMER) Submitted Clinical History Complex atypical endometrial hyperplasia [N85.02] Presence of intrauterine contraceptive device [Z97.5] Endometrioid adenocarcinoma, NOS of endometrium [C54.1] 07/22/2024 2:18 PM [facility] [employer] [facility] Diagnosis A: Endometrium, EMB: Small fragments of weakly proliferative endometrium with stromal breakdown, no definitive atypical hyperplasia identified. (See comment) Fragment with changes suggestive of polyp. Fragments of unremarkable squamous and endocervical glandular epithelium. NH/FHMT 07/22/2024 2:18 PM [facility] Comment The specimen is markedly fragmented; precluding accurate evaluation. Focal changes compatible with exogenous hormone effect are noted. 07/22/2024 2:18 PM [facility] Gross Description A: Endometrium, EMB Multiple fragments of rai to rai-brown to dark brown soft tissue and mucoid material, 2.3 x 1.2 x 0.5 cm in aggregate, entirely submitted in A1. ET 07/22/2024 2:18 PM [facility] Biomarker Block(s) Block for biomarker testing: N/A Normal block: N/A 07/22/2024 2:18 PM [facility] Disclaimer "Some tests reported here may have been developed and performance characteristics determined by [facility] Pathology [facility] Laboratory Medicine. These tests have not been specifically cleared or approved by the U.S. Food and Drug Administration. If applicable, controls were reviewed and showed appropriate reactivity." 07/22/2024 2:18 PM [facility] Tissue (Endometrium) Non-blood Collection / Unknown 07/19/2024 10:19 AM PIGSKIN TRIMMER 07/19/2024 2:16 PM PIGSKIN TRIMMER us Elissa STILL LAB PATHOLOGY ORDERABLES Final R esult [facility] [place] [address], * U HCG (07/19/2024 9:25 AM PIGSKIN TRIMMER) Urine Human Chorionic Gonadotropin Qualitative Negative Negative 07/19/2024 9:36 AM PIGSKIN TRIMMER SUSANA MADRID Urine Voided urine specimen / Unknown Non-blood Collection / Unknown 07/19/2024 9:25 AM PIGSKIN TRIMMER 07/19/2024 9:25 AM PIGSKIN TRIMMER Narrative [place] - 07/19/2024 9:36 AM PIGSKIN TRIMMER Very dilute urine specimens may cause false [...] Reis MD URINE ORDERABLES Final Resul t SUSANA [facility] [address] [facility], [facility] [address] [place] [address] after 07/24/2023 Insurance [facility] PPO POS BCBS [place] PPO POS Care Teams Communications Supervisor Relationship Specialty Start Date End Date Sandra Reis MD [email or web address] PCP - General Gynecologic Medical Oncology 10/24/16 Nazario Barros MD [address] [place] [id number] [email or web address] [email or web address] - External Referring 10/24/16 Jana Gamble MD [address] [place] [phone] [email or web address] Consulting Physician Internal Medicine 02/14/20 Baylee Del Real MD [address] [place] [phone] [email or web address] Consulting Physician Gynecologic Medical Oncology 01/27/17 Panchito Narayan MD [address] [place] [phone] [email or web address] Consulting Physician Endocrinology 12/29/16
[2024-07-24 05:11] VITALS: TEMP 98.7; O2SAT 100
[2024-07-24 05:13] VITALS: BP 143/97
== END 2024-07-23 19:13 | disposition home or self-care (01) ==
LOC: ER 17:24
DX: N61.1 Abscess of the breast and nipple (principal)
CPT/HCPCS: 99283

== ENCOUNTER 2024-08-08 17:06 | Observation (INO) | payer BC ==
--- OUTSIDE RECORDS SUMMARY | 2024-08-08 17:09 | XMS REPORT | Clinical Summary ---
Author Name Unknown Organization [facility] Address [address] [place] [address] Care Team Providers Care Bug Trimmer Name Role Phone Sandra Reis MD Primary Care Provider [phone] Nazario Barros MD Unavailable Jana Gamble MD Unavailable Baylee Del Real MD Unavailable [phone] Panchito Narayan MD Unavailable Allergies Active Allergy [...] blood) strpIndications:Ty pe 2 diabetes mellitus with hyperglycemia,[facility] current use of insulin Use to check BG 3 times daily before meals. 100 strip 11 05/10/20 Active flash glucose sensor (FreeStyle Catrachita 14 Day Sensor) kitIndications:Typ e 2 diabetes mellitus with hyperglycemia,terminal gauger current use of insulin 1 kit by [...] cervical high risk HPV DNA test 021 terminal gauger current use of insulin 04/23/2020 Sedentary lifestyle [...] Department Care Team Description 07/19/2024 9:30 AM FILLING LAYER UP Follow-Up [facility] [place] - Gynecology [address] [place] [address] Sandra Reis MD Rucker, Erika, PA Endometrioid adenocarcinoma, NOS of endometrium (Primary Dx); Complex atypical endometrial hyperplasia; Presence of intrauterine contraceptive device; Breast lump present; Candidiasis of vulva 07/19/2024 Documentation Gynecologic Oncology Center [address] [facility], 6th [place] [address] Elissa Bucio PA 07/19/2024 Travel after 08/09/2023 Immunizations Name Administration Dates Next Due Pfizer SARS-CoV-2 Vaccination (Purple Cap) 02/21,01/28/2021 Surgical History Surgery Date Site/Laterality Comments FL DILATION & CURETTAGE DX&/THER NONOBSTETRIC 12/23/2016 Vagina /N/A Procedure: DILATION AND CURETTAGE, DIAGNOSTIC AND THERAPEUTIC (NONOBSTETRICAL); Surgeon: Sandra Reis MD; Location: MAIN OR; Service: RESPIRATORY PRACTITIONER - GYNECOLOGIC ONCOLOGY Medical devices from this surgery are in the Medical Devices section. FL INSERTION INTRAUTERINE DEVICE IUD 12/23/2016 Vagina /N/A Procedure: INSERTION OF INTRAUTERINE DEVICE; Surgeon: Sandra Reis MD; Location: MAIN OR; Service: RESPIRATORY PRACTITIONER - GYNECOLOGIC ONCOLOGY Medical devices from this surgery are in the Medical Devices section. FL LAPAROSCOPY W/RMVL ADNEXAL STRUCTURES 12/23/2016 Vagina /Left Procedure: SURGICAL LAPAROSCOPYWITH LEFT OVARIAN CYSTECTOMY; Surgeon: Sandra Reis MD; Location: MAIN OR; Service: RESPIRATORY PRACTITIONER - GYNECOLOGIC ONCOLOGY Medical devices from this surgery are in the Medical Devices section. TYMPANOSTOMY TUBE PLACEMENT 06/26/1988 - 06/25/1989 several times as a young child FL HYSTEROSCOPY BX ENDOMETRIUM&/POLYPC W/WO D&C 03/17/2020 Vagina /N/A Procedure: HYSTEROSCOPY; WITH BIOPSY OF ENDOMETRIUM , WITH D & C; Surgeon: Sandra Reis MD; Location: MAIN OR; Service: RESPIRATORY PRACTITIONER - GYNECOLOGIC ONCOLOGY Medical devices from this surgery are in the Medical Devices section. FL INSERTION INTRAUTERINE DEVICE IUD 03/17/2020 Vagina /N/A Procedure: INSERTION OF INTRAUTERINE DEVICE; Surgeon: Sandra Reis MD; Location: MAIN OR; Service: RESPIRATORY PRACTITIONER - GYNECOLOGIC ONCOLOGY Medical devices from this [...] Comments Blood Pressure 112/71 07/19/2024 9:38 AM FILLING LAYER UP Pulse 87 07/19/2024 9:38 AM FILLING LAYER UP Temperature 37.2 C (99 F) 07/19/2024 9:38 AM FILLING LAYER UP Respiratory Rate 17 07/19/2024 9:38 AM FILLING LAYER UP Oxygen Saturation - - Inhaled Oxygen Concentration - - Weight 147 kg (324 lb 1.2 oz) 07/19/2024 9:38 AM FILLING LAYER UP Height - - Body Mass Index 53.99 04/29/2022 10:25 AM CDT Plan of Treatment Upcoming Encounters Date Type Department Care Team (Late st Contact Info) Description 07/16/2025 10:30 AM FILLING LAYER UP Follow-Up [facility] [place] - Gynecology [address] [place] [address] Damon Gomez MD [address] [place] [address] [email or web address] Health Maintenance Due Date Last Done Comments COVID-19 Vaccine (2023-2 5 season) 2024 02/21/2021, 01/28/2021 Influenza Vaccine (#1) 2024 Pneumococcal Vaccine Aged Out No long er eligible based on patient's age to complete this topic Medical Devices Implanted Type Area Maintenance Of Way Superintendent Device Identifier Shelf Expiration Date Model / Serial / Lot Willis Mirena Intrauterine System Implanted:Qty: 1 on 12/23/2016 by Sandra Reis MD at [facility] Implant N/A: Vagina WILLIS WAI 08/23/2019 / / [id number] Description:*from Pharmacy Mirena ( Levonorgestrel-R eleasing Intrauterine System) 52 Mg Implanted:Qty: 1 on 03/17/2020 by Sandra Reis MD at [facility] Implant N/A: Uterus 05/25/2022 [id number] / [id number] Description:*from Pharmacy Procedures Procedure Name Priority Date/Time Associated Diagnosis Comments PATHOLOGY BIOPSY INTERPRETATION Routine 07/19/2024 10:19 AM FILLING LAYER UP Complex atypical endometrial hyperplasia Presence of intrauterine contraceptive device Endometrioid adenocarcinoma, NOS of endometrium HUMAN CHORIONIC GONADOTROPIN, QUALITATIVE Routine 07/19/2024 9:25 AM FILLING LAYER UP Complex atypical endometrial hyperplasia Presence of intrauterine contraceptive device Endometrioid adenocarcinoma, NOS of endometrium after 08/09/2023 Results * Pathology Biopsy Interpretation (07/19/2024 10:19 AM FILLING LAYER UP) Submitted Clinical History Complex atypical endometrial hyperplasia [N85.02] Presence of intrauterine contraceptive device [Z97.5] Endometrioid adenocarcinoma, 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 (See comment) Fragment with changes suggestive of polyp. Fragments of unremarkable squamous and endocervical glandular epithelium. NH/FHMT 07/22/2024 2:18 PM FILLING LAYER UP [facility] Comment The specimen is markedly fragmented; precluding accurate evaluation. Focal changes compatible with exogenous hormone effect are noted. 07/22/2024 2:18 PM FILLING LAYER UP [facility] Gross Description A: Endometrium, EMB Multiple fragments of rai to rai-brown to dark brown soft tissue and mucoid material, 2.3 x 1.2 x 0.5 cm in aggregate, entirely submitted in A1. ET 07/22/2024 2:18 PM FILLING LAYER UP [facility] Biomarker Block(s) Block for biomarker testing: N/A Normal block: N/A 07/22/2024 2:18 PM FILLING LAYER UP [facility] Disclaimer "Some tests reported here may have been developed and performance characteristics determined by [facility] Pathology and Laboratory Medicine. These tests have not been specifically cleared or approved by the U.S. Food and Drug Administration. If applicable, controls were reviewed and showed appropriate reactivity." 07/22/2024 2:18 PM FILLING LAYER UP [facility] Tissue (Endometrium) Non-blood Collection / Unknown 07/19/2024 10:19 AM FILLING LAYER UP 07/19/2024 2:16 PM FILLING LAYER UP us Elissa STILL LAB PATHOLOGY ORDERABLES Final R esult [facility] [place] [address] [place] [address], * U HCG (07/19/2024 9:25 AM FILLING LAYER UP) Urine Human Chorionic Gonadotropin Qualitative Negative Negative 07/19/2024 9:36 AM FILLING LAYER UP SUSANA MADRID Urine Voided urine specimen / Unknown Non-blood Collection / Unknown 07/19/2024 9:25 AM FILLING LAYER UP 07/19/2024 9:25 AM FILLING LAYER UP Narrative SUSANA MADRID - 07/19/2024 9:36 AM FILLING LAYER UP Very dilute urine specimens may cause false [...] MD URINE ORDERABLES Final Resul t SUSANA MADRID [facility] [place] [address] [facility], [address] [place] [address] after 08/09/2023 Insurance [facility] PPO POS [facility] PPO POS Care Teams Bug Trimmer Relationship Specialty Start Date End Date Sandra Reis MD [email or web address] PCP - General Gynecologic Medical Oncology 10/24/16 Nazario Barros MD [address] [place] [id number] [email or web address] PCP - External Referring 10/24/16 Jana Gamble MD [address] [place] [address] [phone] [email or web address] Consulting Physician Internal Medicine 02/14/20 Baylee Del Real MD [address] [place] [phone] [email or web address] Consulting Physician Gynecologic Medical Oncology 01/27/17 Panchito Narayan MD [facility] [place], [place] [phone] [email or web address] Consulting Physician Endocrinology 12/29/16
[2024-08-08] MEDS ORDERED: ONDANSETRON 4 MG/2 ML VIAL ONE (22:07)
[2024-08-08] MEDS ORDERED: MORPHINE 4 MG/ML SYR ONE (22:08)
[2024-08-08 22:31] LABS: PT Prothrombin Time 11.7 SECONDS (9.4-12.5); Protime INR 1.12
[2024-08-08 22:39] LABS: ALT/SGPT 22 U/L (13-56); Albumin 2.9 g/dL (3.4-5.0); Albumin/Globulin Ratio 0.6 (1.1-1.8); Alkaline Phosphatase 147 U/L (45-117); BUN Blood Urea Nitrogen 10 mg/dL (7-18); Bicarbonate 24 mEq/L (21-32); Bilirubin Total 0.2 mg/dL (0.2-1.0); Globulin 4.8 g/dL (2.3-3.5); Glomerular Filtration Rate 75 ml/min (=/>90); Protein, Total 7.7 g/dL (6.4-8.2); Sodium Level 131 mEq/L (136-145)
[2024-08-08 22:40] LABS: Absolute Eosinophils 0.1 K/uL (0-0.5); Absolute Lymphocytes (CBC) 2.6 K/uL (0.7-4.9); Absolute Monocytes 0.6 K/uL (0.1-1.3); Absolute Neutrophil 4.7 K/uL (1.8-8.0); Basophils % 0.3 % (0-1.3); Eosinophils % 1.3 % (0-4.4); Hematocrit 38.6 % (36.0-45.0); Hemoglobin 13.2 g/dL (12.0-15.0); Lymphocytes % 32.9 % (15.3-44.8); MCH 27.6 pg (27.0-35.0); MCHC 34.2 g/dL (32.0-36.0); MCV 80.5 fL (80-100); MPV 8.2 fL (7.6-11.3); Monocytes % 6.9 % (3.3-12.3); Neutrophils % 58.6 % (41.7-73.7); Nucleated Red Blood Cells % 0.1 % (0-0); Platelets 362 thou/uL (152-406); RBC Red Blood Cell Count 4.79 M/uL (3.86-4.86); Red Cell Distribution Width 14.6 % (12.1-15.2)
[2024-08-08 22:43] LABS: AST/SGOT < 10 U/L (15-37)
[2024-08-08 22:45] LABS: Glucose Level 556 mg/dL (74-106)
[2024-08-08] MEDS ORDERED: INSULIN REGULAR (HUMAN) 100 UNIT/ML ONE (23:58)
[2024-08-08] MEDS ORDERED: VANCOMYCIN 1 GM/VIAL ONE (23:58)
[2024-08-08] MEDS ORDERED: NA CHLORIDE 0.9% 1,000 ML ONE (23:59)
[2024-08-08] MEDS ORDERED: CEFEPIME 1 GM/VIAL ONE (23:59)
[2024-08-09] MEDS ORDERED: NA CHLORIDE 0.9% 500 ML ONE
[2024-08-09] MEDS ORDERED: NA CHLORIDE 0.9% 0 ML ONE
--- NOTE | 2024-08-09 00:08 | EDPHYS ---
Physician Documentation [facility] Name: Jass Dukes Age: 38 yrs Sex: Female : 1985 Arrival Date: 08/08/2024 Time: 17:06 Bed 18 Private MD: ED Darío Sultana HPI: 08/08 18:09 This 38 yrs old Female presents to ER via Ambulatory with complaints of Breast abscess. sb4 18:09 patient reports right breast abscess for 2.5 weeks. was seen here about 2 weeks ago, sb4 had an ultrasound, and was discharged with doxycycline. states she followed up with her PCP a few days later and changed her antibiotics to clarithromycin and clindamycin. states this morning she was taking a shower and she noticed a "hole" in the abscess with white drainage. she denies any or chills, but states she has been sleeping a lot. is an insulin dependent diabetic, does not check her blood sugar. TECH INTERN: 17:24 LMP N/A - control method, Not iw Historical: - Allergies: 17:23 GABAPENTIN; iw 17:23 Bactrim; iw 17:23 PENICILLINS; iw - Home Meds: 17:23 amlodipine 5 mg tablet 2 times per day [Active]; Eliquis 5 mg Oral tablet 1 tab 2 times iw per day [Active]; hydrochlorothiazide 25 mg Oral tablet 2 times per day [Active]; lisinopril 40 mg Oral tablet daily [Active]; - PMHx: 17:23 Deep vein thrombosis; Diabetes - IDDM; endometrial lining CA; Hypertension; iw - PSHx: 17:23 ear tubes; ovarian cysts; Tonsillectomy; iw - Immunization history:: Adult Immunizations not up to date. - Infectious Disease History:: Denies. - Social history:: Smoking status: Patient denies any tobacco usage or history of. ROS: 18:11 Constitutional: Negative for fever, chills, and weight loss, sb4 18:11 Skin: Positive for abscess, of the right breast, 18:11 All other systems are negative, Exam: 18:11 Head/Face: Normocephalic, atraumatic. Eyes: Extra-ocular motions intact. Periorbital sb4 areas with no swelling, redness, or edema. ENT: Mucous membranes moist. Respiratory: No increased work of breathing, no retractions or nasal flaring. 18:11 Constitutional: The patient appears in no acute distress, alert, awake, obese, 18:11 Chest/axilla: Inspection: abscess, that is large, of the right breast with purulent discharge and surrounding cellulitis , Vital Signs: 17:22 BP 144 / 87; Pulse 91; Resp 16; Temp 97.3; Pulse Ox 99% on R/A; Weight 138.35 kg; iw Height 5 ft. 5 in. ; Pain 7/10; 22:00 BP 151 / 109; Pulse 102; Resp 19; Pulse Ox 99% ; Pain 8/10; jj7 23:00 BP 139 / 90; Pulse 93; Resp 17; Pulse Ox 97% ; jj7 08/09 00:00 BP 136 / 93; Pulse 90; Resp 17; Pulse Ox 97% ; jj7 08/08 17:22 Body Mass Index 50.75 (138.35 kg, 165.1 cm) iw 08/08 17:22 Pain Scale: Adult 22:00 Pain Scale: Adult [facility] MDM: 08/08 17:33 Medical Screening Exam initiated sb4 08/09 00:06 Data reviewed: vital signs, nurses notes, lab test result(s), radiologic studies, and sb4 as a result, I will admit patient. Consideration of Admission/Observation Patient was admitted/placed on observation. Management of patient was discussed with the following: Public Health Professor: Dr. Carr, will take to OR tomorrow to drain abscess. Care significantly affected by the following chronic conditions: Diabetes, Obesity. Counseling: I had a detailed discussion with the patient and/or guardian regarding the historical points, exam findings, and any diagnostic results supporting the discharge/admit diagnosis, the presence of at least one elevated blood pressure reading (>120/80) during this emergency department visit, lab results, radiology results, the need for further work-up and treatment in the hospital. 08/08 18:06 Order name: Blood Culture Adult (2) sb4 08/08 18:06 Order name: CBC with Diff; Complete Time: 22:43 sb4 08/08 18:06 Order name: CMP; Complete Time: 22:50 sb4 08/08 18:06 Order name: Lactate w/ 2H reflex if indic.; Complete Time: 22:50 sb4 08/08 18:06 Order name: Protime (+inr); Complete Time: :43 sb4 08/08 18:06 Order name: Ptt, Activated; Complete Time: :43 sb4 08/08 18:06 Order name: Test, Serum; Complete Time: :43 sb4 08/08 22:48 Order name: Ghost Lactate-NO COLLECT Timer; Complete Time: 00:48 EDMS 08/09 00:08 Order name: Lactate w/ 2H reflex if indic.; Complete Time: 01:11 sb4 08/09 00:36 Order name: Basic Metabolic Panel EDMS 08/09 00:36 Order name: Basic Metabolic Panel EDMS 08/09 00:36 Order name: CBC with Automated Diff EDMS 08/09 00:36 Order name: CBC with Automated Diff EDMS 08/09 00:36 Order name: Lipid Profile EDMS 08/09 00:36 Order name: Lipid Profile EDMS 08/09 06:05 Order name: Glucose, Ancillary Testing; Complete Time: 07:17 EDMS 08/09 07:07 Order name: Glucose, Ancillary Testing; Complete Time: 07:17 EDMS 08/09 07:50 Order name: Lactate Sepsis 2 HR Follow-up; Complete Time: 13:01 EDMS 08/09 08:07 Order name: Glucose, Ancillary Testing; Complete Time: 13:01 EDMS 08/09 08:12 Order name: CBC without Diff; Complete Time: 13:01 EDMS 08/09 08:19 Order name: Basic Metabolic Panel; Complete Time: 13:01 EDMS 08/09 08:19 Order name: Magnesium; Complete Time: 13:01 EDMS 08/08 18:06 Order name: Chest W/ Con CT; Complete Time: 01:09 sb4 08/08 18:06 Order name: Accucheck; Complete Time: 00:16 sb4 08/08 18:06 Order name: Cardiac monitoring; Complete Time: 22:03 sb4 08/08 18:06 Order name: IV Saline Lock - Large Bore; Complete Time: 22:03 sb4 08/08 18:06 Order name: Labs collected and sent; Complete Time: 22:03 sb4 08/08 18:06 Order name: O2 Per Protocol; Complete Time: 22:03 sb4 08/08 18:06 Order name: O2 Sat Monitoring; Complete Time: 22:03 sb4 08/08 18:06 Order name: Vital Signs; Complete Time: 22:03 sb4 08/09 00:48 Order name: NPO; Complete Time: 01:34 sb4 Administered Medications: 08/08 22:15 Drug: morphine IVP or IV 4 mg IVP once over 4 mins Route: IVP; Infused Over: 4 mins; jj7 Site: left antecubital; 08/09 00:15 Follow up: Response: Marked relief of symptoms; Pain is decreased 08/08 22:15 Drug: Ondansetron IVP 4 mg IVP once; over 2 minutes Route: IVP; Site: left antecubital; j08/09 00:15 Follow up: Response: Marked relief of symptoms 00:14 Drug: Cefepime IVPB 1 grams IVPB at 200 ml/hr once over 30 mins; (mix in NS 100 mL) Route: IVPB; Rate: 200 ml/hr; Infused Over: 30 mins; Site: right antecubital; 00:45 Follow up: IV Status: Completed infusion 00:15 Drug: NS 0.9% IV 1000 ml IV at 1000 ml once; to be given as a bolus over 60 minutes Route: IV; Rate: 1000 ml; Site: right antecubital; 01:50 Follow up: IV Status: Completed infusion 00:19 Drug: Insulin Regular Human IVP 10 units IVP once {Co-Signature: kj2 (Mala Bella RN).} Route: IVP; Site: right antecubital; 00:20 Follow up: Response: No adverse reaction 00:48 Drug: vancoMYCIN IVPB 2 grams IVPB at calculated rate once Route: IVPB; Rate: jj7 calculated rate; Site: right antecubital; 02:40 Follow up: IV Status: Completed infusion Disposition Summary: 08/09/24 00:07 Hospitalization Ordered Notes: Hospitalization Status: Inpatient Admission sb4 Provider: Prince jamila Arriola Condition: Fair sb4 Problem: new sb4 Symptoms: are unchanged sb4 Bed/Room Type: Standard sb4 Location: [facility] ER HOLD(08/09/24 00:23) rv1 Room Assignment: ERHOLD-(08/09/24 00:23) rv1 Diagnosis - Abscess of the breast and nipple sb4 - Severe sepsis without septic shock sb4 - Type 2 diabetes mellitus with hyperglycemia sb4 Forms: - Medication Reconciliation Form sb4 - SBAR form sb4 - Leadership Thank You Letter sb4 Addendum: 08/11/2024 07:53 I was immediately available for consultation during this patient's visit. I did not e c2 personally see the patient or discuss the patient with the BETY. . Signatures: Dispatcher [employer] EDMargot Harmon, RN RN Anna Cook RN RN jjCt Dodd, PAEvansC PAEvansC sb4 Ericka Goodman rv1 Darío Cervantes MD MD ec2 Mala Bella RN kj2 Corrections: (The following items were deleted from the chart) 08/08 18:06 18:06 Thorax W/ Con+CT.RAD.BRZ ordered. EDMS EDMS 08/09 00:08 00:08 LACTATE+C.LAB.BRZ ordered. EDRI EDMS 00:23 00:07 Telemetry/MedSurg (Inpatient) sb4 rv1 00:23 00:07 sb4 rv1
--- NOTE | 2024-08-09 00:08 | ER ---
Nurse's Notes [facility] Name: Jass Dukes Age: 38 yrs Sex: Female : 1985 Arrival Date: 08/08/2024 Time: 17:06 Bed 18 Private MD: Diagnosis: Abscess of the breast and nipple;Severe sepsis without septic shock;Type 2 diabetes mellitus with hyperglycemia Presentation: 08/08 17:22 Chief complaint: Patient states: has an abscess on right breast , has had 2 different iw antibiotics , there has been drainage for a week and when she checked it today there was a hole there. Coronavirus screen: At this time, the client does not indicate any symptoms associated with coronavirus-19. Ebola Screen: No symptoms or risks identified at this time. Initial Sepsis Screen: Does the patient meet any 2 criteria? No. Patient's initial sepsis screen is negative. Does the patient have a suspected source of infection? No. Patient's initial sepsis screen is negative. Risk Assessment: Do you want to hurt yourself or someone else? Patient reports no desire to harm self or others. Onset of symptoms was July 25, 2024. 17:22 Method Of Arrival: Ambulatory iw 17:22 Acuity: ANNITA 3 iw OB GYN PHYSICIAN ASSISTANT: 17:24 LMP N/A - control method, Not iw Historical: - Allergies: 17:23 GABAPENTIN; iw 17:23 Bactrim; iw 17:23 PENICILLINS; iw - Home Meds: 17:23 amlodipine 5 mg tablet 2 times per day [Active]; Eliquis 5 mg Oral tablet 1 tab 2 times iw per day [Active]; hydrochlorothiazide 25 mg Oral tablet 2 times per day [Active]; lisinopril 40 mg Oral tablet daily [Active]; - PMHx: 17:23 Deep vein thrombosis; Diabetes - IDDM; endometrial lining CA; Hypertension; iw - PSHx: 17:23 ear tubes; ovarian cysts; Tonsillectomy; iw - Immunization history:: Adult Immunizations not up to date. - Infectious Disease History:: Denies. - Social history:: Smoking status: Patient denies any tobacco usage or history of. Screenin:00 [facility] ED Fall Risk Assessment (Adult) History of falling in the last 3 months, jj7 including since admission No falls in past 3 months (0 pts) Confusion or Disorientation No (0 pts) Intoxicated or Sedated No (0 pts) Impaired Gait No (0 pts) Mobility Assist Device Used No (0 pt) Altered Elimination No (0 pt) Score/Fall Risk Level 0 - 2 = Low Risk Oriented to surroundings, Maintained a safe environment, Educated pt \T\ family on fall prevention, incl call for assistance when getting out of bed, Assessed \T\ reinforced patient's understanding of fall precautions. Abuse screen: Denies threats or abuse. Nutritional screening: No deficits noted. Tuberculosis screening: No symptoms or risk factors identified. Assessment: 22:00 Reassessment: ASSUMED CARE OF PT. PT SITTING IN BED. NO DISTRESS NOTED. VS STABLE. jj7 FAMILY AT BEDSIDE. CALL NICOLE IN REACH. Pain: Complains of pain in right breast Pain currently is 4 out of 10 on a pain scale. Derm: Abscess located on right breast has purulent drainage, Reports pain that is 4 out of 10 on a pain scale. 23:00 Reassessment: Patient is alert, oriented x 3, equal unlabored respirations, skin jj7 warm/dry/pink. Vital Signs: 17:22 BP 144 / 87; Pulse 91; Resp 16; Temp 97.3; Pulse Ox 99% on R/A; Weight 138.35 kg; iw Height 5 ft. 5 in. ; Pain 7/10; 22:00 BP 151 / 109; Pulse 102; Resp 19; Pulse Ox 99% ; Pain 8/10; jj7 23:00 BP 139 / 90; Pulse 93; Resp 17; Pulse Ox 97% ; jj7 08/09 00:00 BP 136 / 93; Pulse 90; Resp 17; Pulse Ox 97% ; jj7 08/08 17:22 Body Mass Index 50.75 (138.35 kg, 165.1 cm) iw 08/08 17:22 Pain Scale: Adult iw 22:00 Pain Scale: Adult jj7 ED Course: 08/08 17:08 Patient arrived in ED. ra3 17:09 Ct Olson PA-C is PHCP. sb4 17:09 Darío Cervantes MD is Attending Physician. sb4 17:23 Triage completed. iw 17:24 Arm band placed on. iw 18:47 Radiology exam delayed due to lab results not completed at this time. test jc4 not completed at this time. IV insertion attempt and/or patient not having appropriate IV at this time. 20:49 Anna Barakat RN is Primary Nurse. jj7 21:55 Initial lab(s) drawn, by me, sent to lab. First set of blood cultures drawn by me. rk3 Inserted saline lock: 20 gauge in left antecubital area, using aseptic technique. Missed attempt(s): 20 gauge in left antecubital area. Bleeding controlled, band aid applied, catheter tip intact. 22:00 Patient has correct armband on for positive identification. Bed in low position. Call jj7 light in reach. Adult w/ patient. Provided Education on: USE OF CALL NICOLE. Client placed on continuous cardiac and pulse oximetry monitoring. NIBP monitoring applied. Pulse ox on. 22:00 No provider procedures requiring assistance completed. jj7 22:33 Blood Culture Adult (2) Sent. rk3 22:34 CBC with Diff Sent. rk3 22:34 CMP Sent. rk3 22:34 Lactate w/ 2H reflex if indic. Sent. rk3 22:45 Blood Culture Adult (2) Sent. rk3 23:24 Chest W/ Con CT In Process Unspecified. EDMS 08/09 00:07 Prince Arriola MD is Hospitalizing Provider. sb4 00:38 Lactate w/ 2H reflex if indic. Sent. rk3 Administered Medications: 08/08 22:15 Drug: morphine IVP or IV 4 mg IVP once over 4 mins Route: IVP; Infused Over: 4 mins; jj7 Site: left antecubital; 08/09 00:15 Follow up: Response: Marked relief of symptoms; Pain is decreased jj7 08/08 22:15 Drug: Ondansetron IVP 4 mg IVP once; over 2 minutes Route: IVP; Site: left antecubital; jj7 08/09 00:15 Follow up: Response: Marked relief of symptoms jj7 00:14 Drug: Cefepime IVPB 1 grams IVPB at 200 ml/hr once over 30 mins; (mix in NS 100 mL) jj7 Route: IVPB; Rate: 200 ml/hr; Infused Over: 30 mins; Site: right antecubital; 00:45 Follow up: IV Status: Completed infusion jj7 00:15 Drug: NS 0.9% IV 1000 ml IV at 1000 ml once; to be given as a bolus over 60 minutes Route: IV; Rate: 1000 ml; Site: right antecubital; 01:50 Follow up: IV Status: Completed infusion 00:19 Drug: Insulin Regular Human IVP 10 units IVP once {Co-Signature: kj2 (Mala Bella RN).} Route: IVP; Site: right antecubital; 00:20 Follow up: Response: No adverse reaction 00:48 Drug: vancoMYCIN IVPB 2 grams IVPB at calculated rate once Route: IVPB; Rate: j7 calculated rate; Site: right antecubital; 02:40 Follow up: IV Status: Completed infusion Medication: 08/08 22:00 VIS not applicable for this client. Outcome: 08/09 00:07 Decision to Hospitalize by Provider. sb4 10:53 Patient left the ED. Signatures: Dispatcher [employer] EDMT Margot Rodriges RN PETER Vonnie Lester RN RN Anna Barakat RN RN Ct Salazar, PA-Peewee PA-C sb4 Therese Gates ra3 Biju Bowman jc4 Estrella Ernst rk3 Mala Bella RN kj2 Corrections: (The following items were deleted from the chart) 08/08 22:06 22:03 BP 151 / 109; Pulse 102bpm; Resp 19bpm; Pulse Ox 99%; Pain 8/10, Adult; jj7 j7
[2024-08-09] MEDS ORDERED: CEFEPIME 1 GM in NA CHLORIDE 0.9% 100 ML IV SCH (00:35)
--- NOTE | 2024-08-09 00:38 | P.HP ---
Certification for Inpatient Patient admitted to: Inpatient With expected LOS: >2 Midnights Practitioner: I am a practitioner with admitting privileges, knowledge of patient current condition, hospital course, and medical plan of care. Services: Services provided to patient in accordance with Admission requirements found in Title 42 Section 412.3 of the Code of Federal Regulations Patient History Date of Service: 08/09/24 Reason for admission: Right breast abscess History of Present Illness: Patient is a 38-year-old female with a past medical history of type 2 diabetes mellitus and recently right breast abscess. Patient was first seen here a few weeks ago for a similar symptoms. At that time she presented with right breast lump, erythema, warmth and pain. She had no fever or signs of sepsis. Patient was discharged from the ER on doxycycline. Her symptoms persisted despite being compliant with the antibiotics. She went to her PCP who prescribed her clindamycin. Patient noticed that her lesion worsened. It is now open and self draining grayish purulent discharge. He has no fever or chills. She is presenting here due to persistent symptoms. Workup in the ER revealed a normal WBC. She has a blood glucose of 556. Bedside evaluation by me showed actively draining pus. She will benefit from surgical consult. She will need to go to the ICU for insulin drip pending surgery in the morning Allergies Penicillins Allergy (Unverified 09/17/15 09:45) Unknown sulfamethoxazole [From Bactrim] Allergy (Unverified 09/17/15 09:45) Unknown trimethoprim [From Bactrim] Allergy (Unverified 09/17/15 09:45) Unknown Home Medications: Tramadol HCl [Conzip] 50 mg PO Q4HR PRN #30 cpbp.25.75 10/16/16 lisinopriL [Lisinopril] 10 mg PO DAILY WITH BREAKFAST 10/16/16 - Past Medical/Surgical History Diabetic: No -: Tonsils () -: Tubes in Ears (2004) - Family History Mother -: Hypertension - Social History Alcohol use: Yes CD- Drugs: No Caffeine use: Yes Physical Examination - Physical Exam General: Acute distress, Obese (Morbidly obese) HEENT: Atraumatic, Normocephalic Respiratory: Clear to auscultation bilaterally, Normal air movement Cardiovascular: No edema, Normal pulses, Regular rate/rhythm, Normal S1 S2 Integumentary: Skin lesion, Tenderness/swelling, Erythema, Warmth, Other (Right breast abscess, self draining purulent discharge) Neurological: Normal speech - Studies Laboratory Data (last 24 hrs) 08/08/24 08/08/24 08/08/24 21:55 21:55 21:55 WBC 8.10 Hgb 13.2 Hct 38.6 Plt Count 362 PT 11.7 INR 1.12 APTT 37.0 H Sodium 131 L Potassium 4.0 BUN 10 Creatinine 0.99 Glucose 556 H* Total Bilirubin 0.2 AST < 10 L ALT 22 Alkaline Phosphatase 147 H Assessment and Plan - Problems (Diagnosis) (1) Abscess of right breast Current Visit: Yes Status: Acute (2) Hyperglycemia Current Visit: Yes Status: Acute (3) Morbid obesity Current Visit: Yes Status: Acute - Plan Assessment This is a 38-year-old female who has failed outpatient therapy for right breast abscess. She was initially on doxycycline which was later changed to clindamycin due to persistent symptoms. Unfortunately, her symptoms continue to progress. She now has an open lesion on her right breast draining purulent discharge. Patient is not septic. Workup in the ER revealed a blood glucose of 556. CT chest was done, formal report pending. Right breast abscess Hyperglycemia Outpatient treatment failure Plan: Will admit to inpatient Transferred to ICU for insulin drip due to severe hyperglycemia Continue patient on vancomycin and Flagyl Will keep n.p.o. General Surgery has been consulted for I&D Pain control Antiemetics Keep n.p.o. - Advance Directives Does patient have a Living Will: No Does patient have a Durable POA for Healthcare: No
[2024-08-09] MEDS: NA CHLORIDE 0.9% 1,000 ML IV SCH (01:00)
[2024-08-09] MEDS: METRONIDAZOLE 500mg IVPB 500 MG/100 ML BAG IV SCH (01:00)
[2024-08-09] MEDS: VANCOMYCIN 1 GM in NA CHLORIDE 0.9% 250 ML IVPB SCH (01:00)
[2024-08-09] MEDS ORDERED: GLUCAGON 1 MG/VIAL IM PRN (01:05)
[2024-08-09] MEDS ORDERED: INSULIN REGULAR, HUMAN 100 UNIT in NA CHLORIDE 0.9% 100 ML IV SCH (01:05)
[2024-08-09] MEDS ORDERED: D50W 25 GM/50 ML SYRINGE IV PRN (01:05)
--- NOTE | 2024-08-09 01:07 | RAD REPORT ---
CLINICAL HISTORY: right breast abscess. COMPARISON: None. TECHNIQUE: CT of the chest was performed following intravenous administration of iodinated contrast. Axial, coronal, and sagittal reconstructions were created and sent to PACS. This exam was performed according to our departmental dose-optimization program, which includes autom ated exposure control, adjustment of the mA and/or kV according to patient size and/or use of iterative reconstruction technique. FINDINGS: Lungs and pleura: No pulmonary consolidation. No pleural effusion. No pneumothorax. Mediastinum and neck: No mediastinal lymphadenopathy by CT size criteria. Unremarkable appearance of the thyroid gland. Cardiovascular: No cardiomegaly or pericardial effusion. No thoracic aortic aneurysm or dissection. Abdomen: No significant upper abdominal abnormality identified. Musculoskeletal: Thickening and low-density changes in the region of the right nipple. Small superfic ial subcutaneous abscess on the order of 1 cm is suspected (such as coronal series 203 image 28). Strandy changes in the fat posterior to the right nipple. This exam does not evaluate for malignancy. No concerning osseous abnormality. No left axillary lymphadenopathy identified by this technique. IMPRESSION: 1. Suspected superficial subcutaneous abscess in the region of the right nipple. 2. Recommend follow-up in a diagnostic breast imaging center. Electronically signed by: Aniya Frnaco MD 08/08/2024 11:56 PM [facility] Due to temporary technical issues with the PACS/[employer] reporting system, reports are being bhargavi d by the in-house radiologist without review as a courtesy to ensure prompt reporting the interpreting radiologist is fully responsible for the content of the report. Transcribed Date/Time: 08/09/2024 1:06 AM
[2024-08-09] MEDS ORDERED: D10W 125 ML IV PRN (01:09)
[2024-08-09] MEDS ORDERED: NA CHLORIDE 0.9% 100 ML ONE (02:01)
[2024-08-09] MEDS ORDERED: METRONIDAZOLE 500mg IVPB 500 MG/100 ML BAG IV ONE ×2 (02:01→09:01)
[2024-08-09] MEDS ORDERED: HYDROMORPHONE HCL 1 MG/ML INJ ONE ×2 (03:08→06:57)
[2024-08-09] MEDS: HYDROMORPHONE HCL 1 MG/ML INJ IV PRN (03:10)
[2024-08-09] MEDS: INSULIN REGULAR (HUMAN) 100 UNIT/ML IV ONE (06:07)
[2024-08-09 06:16] VITALS: BMI 50.7
[2024-08-09] MEDS ORDERED: INSULIN REGULAR (HUMAN) 100 UNIT/ML ONE ×2 (06:17→08:20)
[2024-08-09] MEDS ORDERED: ONDANSETRON 4 MG/2 ML VIAL ONE ×2 (06:34→11:20)
[2024-08-09] MEDS: ONDANSETRON 4 MG/2 ML VIAL IV PRN (06:37)
[2024-08-09] MEDS: FLU (Fluarix Triv) TS24-25(6MOS UP)/PF 45 MCG/0.5 ML Syringe IM ONE (07:15)
[2024-08-09] MEDS: PNEUMOCOCCAL VACCINE 0.5 ML IMVAC ONE (08:00)
[2024-08-09 08:08] LABS: Hematocrit 37.3 % (36.0-45.0); Hemoglobin 12.4 g/dL (12.0-15.0); MCHC 33.2 g/dL (32.0-36.0); MCV 81.2 fL (80-100); MPV 7.9 fL (7.6-11.3); Platelets 349 thou/uL (152-406); RBC Red Blood Cell Count 4.59 M/uL (3.86-4.86); Red Cell Distribution Width 14.4 % (12.1-15.2)
[2024-08-09 08:17] LABS: Magnesium 1.9 mg/dL (1.6-2.4)
[2024-08-09] MEDS ORDERED: PROMETHAZINE INJ 25 MG/ML AMP ONE (08:19)
[2024-08-09] MEDS: PROMETHAZINE INJ 25 MG/ML AMP IV ONE (08:26)
[2024-08-09] MEDS: INSULIN REGULAR (HUMAN) 100 UNIT/ML SQ SCH ×2 (08:27→16:30)
[2024-08-09] MEDS ORDERED: NA CHLORIDE 0.9% 1,000 ML ONE (08:50)
--- NOTE | 2024-08-09 10:31 | P.PN ---
Date of Service: 08/09/24 Subjective: Developed some nausea and vomiting this morning No other acute events overnight ROS: 10 point ROS as noted above, otherwise negative Physical exam GEN: Alert, oriented, NAD HEENT: Normal conjunctiva, sclera anicteric CV: Regular rate and rhythm, no edema Pulm: Nonlabored respirations on room air ABD: Soft, nontender, nondistended MSK: No joint tenderness Integumentary: Abscess to right breast draining purulent fluid Neuro: Normal speech, normal affect Vitals reviewed Assessment: Right breast cellulitis with abscess Diabetes mellitus type 2insulin-dependent with hyperglycemia Hypertension Hyperlipidemia Plan: Right breast cellulitis with abscess N.p.o., IVF, IV antibiotics Plan for surgical I&D today with Dr. Carr Diabetes mellitus type 2insulin-dependent with hyperglycemia Every 6 hours Accu-Chek, sliding scale insulin Reports poor compliance with insulin at home although she does have the insulin and Dexcom Counseled importance of better management of her diabetes given the presence of infections Hypertension Hyperlipidemia Continue home medications when verified DVT PPX: SCD Code status: Server Administrator Spent Managing Pts Care (In Minutes): 35
[2024-08-09] MEDS ORDERED: propofoL 200 MG/20 ML VIAL IV ONE (11:19)
[2024-08-09] MEDS ORDERED: LIDOCAINE 1% MPF 5 ML VIAL ONE (11:20)
[2024-08-09] MEDS ORDERED: MIDAZOLAM HCL 2 MG/2 ML INJ ONE (11:20)
[2024-08-09] MEDS ORDERED: FENTANYL CITR 100 MCG/2 ML ONE ×2 (11:20→12:46)
[2024-08-09] MEDS: SCOPOLAMINE HYDROBROMIDE PATCH TD ONE (11:30)
--- NOTE | 2024-08-09 12:16 | P.CNS ---
Date of Consult: 08/09/24 PC: This 38-year-old female presented to the emergency room with severe pain in her right breast for diagnosis and treatment. HPC: Patient has been having pain and swelling in her right breast. Has seen her primary care physician. The pain however intensified, started having some drainage from just outside the areola on her right breast. PSHx: Previous endometrial biopsies PMHx: Treated apparently for endometrial carcinoma Social Hx: Has an IUD, allergic to gabapentin, penicillin, trimethoprim, diabetes Sys R: No cough, wheeze, shortness of breath. No chest pain or palpitations. O/E: Awake alert vital signs are stable HEENT: Negative Chest: Air entry equal bilaterally Breast: Right breast is inflamed, has 2 openings just adjacent to the right areola with some purulent material and necrotic tissue seen Abd: Negative [facility]: Intact Data: CT scan that has been done confirms clinical diagnosis of right breast ab scess Impression: Right breast abscess Plan: I will taken the operating room for incision, drainage, sharp debridement of this abscess of this patient's right breast. The risks of this procedure gallagher ve been discussed. The placement of drains etc. has been outlined. The possibility of bleeding, infection, cosmetic deformity were explained. She understands and wants us to proceed. The fact that she will require a follow-up mammogram in 2 months was also explained.
[2024-08-09] MEDS ORDERED: dexAMETHasone 4 MG/ML VIAL ONE (12:41)
[2024-08-09] MEDS: BUPIVACAINE 0.25% PF 30 ML VIAL ONE (12:46)
[2024-08-09] MEDS: VANCOMYCIN 2 GM in NA CHLORIDE 0.9% 500 ML IVPB SCH (13:00)
[2024-08-09] MEDS ORDERED: KETOROLAC 30 MG/ML INJ ONE (13:02)
--- NOTE | 2024-08-09 13:03 | P.OP ---
Preoperative diagnosis: Right breast abscess Postoperative diagnosis: The same Primary procedure: Incision, drainage, sharp debridement of right breast abscess Anesthesia: General Estimated blood loss: Less than 10 cc Specimen: Cultures both aerobic and anaerobic were sent Operative Technique: The patient brought the operating room and placed supine on the table. After the induction of adequate general anesthesia, the area of the right breast and chest was prepped with a DuraPrep solution, she was draped in usual aseptic manner. Attention was turned towards the right breast. On inspection of the right nipple we could see that there was some retraction with some scar tissue around it. Just lateral to the areola there was an opening at the 3 o'clock position that measured approximately 1 cm in size. Adjacent to this with a 1 cm skin bridge was another smaller opening that measured about a half a center meter in size. These were sharply debrided using a cutting surgical curette to clear them of necrotic tissue. The hemostat was now placed into the actual openings themselves. We encountered another abscess that had formed in the deeper tissue this was easily drained with suction that we passed down through the opening. A cutting surgical curette was now used to sharply debride the underlying tissue. A cutting 11 blade was also used to remove some remaining necrotic tissue. At this point the wound was inspected to ensure adequate hemostasis. In order to establish drainage during the postoperative period, 1/4 inch Josie drain was placed into these 2 openings and safety pin to themselves. This is to keep the area open and draining during the postoperative period. The area had been injected prior to the start of the procedure with 0.25% Marcaine in a field block. The wounds were now irrigated also with the remaining amount of 0.25% Marcaine until the effluent was clear. A sterile dressing was applied. At the end the procedure she was stable and sent to the recovery room. Needle sponge instrument count were correct. Complications: None Drain(s): Other ([place] drain) Transferred to: Recovery Room Condition: Good
[2024-08-09] MEDS: INSULIN REGULAR (HUMAN) 100 UNIT/ML ONE (13:47)
[2024-08-09 13:55] VITALS: O2SAT 98
[2024-08-09] MEDS: FENTANYL CITR 100 MCG/2 ML ONE (14:00)
--- NOTE | 2024-08-09 14:44 | P.DS ---
Admission Date: 08/09/24 Discharge Date: 08/09/24 Disposition: ROUTINE DISCHARGE Discharge Condition: GOOD Reason for Admission: Right breast abscess Brief History of Present Illness: Patient is a 38-year-old female with a past medical history of type 2 diabetes mellitus and recently right breast abscess. Patient was first seen here a few weeks ago for a similar symptoms. At that time she presented with right breast lump, erythema, warmth and pain. She had no fever or signs of sepsis. Patient was discharged from the ER on doxycycline. Her symptoms persisted despite being compliant with the antibiotics. She went to her PCP who prescribed her clindamycin. Patient noticed that her lesion worsened. It is now open and self draining grayish purulent discharge. He has no fever or chills. She is presenting here due to persistent symptoms. Workup in the ER revealed a normal WBC. She has a blood glucose of 556. Bedside evaluation by me showed actively draining pus. She will benefit from surgical consult. She will need to go to the ICU for insulin drip pending surgery in the morning Hospital Course: Assessment: Right breast cellulitis with abscess Diabetes mellitus type 2insulin-dependent with hyperglycemia Hypertension Hyperlipidemia Patient was admitted to the hospital for an abscess to her right breast. She underwent incision and drainage with Dr. Carr on 08/09/2024. She tolerated the procedure well and is stable for discharge and outpatient follow-up. There is a JAD drain in place. Dr. Carr wishes for patient to call his clinic on Saturday 08/12 to arrange for an appointment on Monday 08/14 for further management. She will be sent a prescription for antibioticsclindamycin as well as some additional pain medications. She was counseled extensively on the importance of getting tighter control of her blood sugars with her diabetes as if her sugars are not well-controlled her wound will not heal appropriately and she is at risk for further complications and worsening infection. Vital Signs/Physical Exam: Temp Pulse Resp BP Pulse Ox 98.0 F 79 18 149/67 H 97 08/09/24 13:42 08/09/24 13:52 08/09/24 13:52 08/09/24 13:52 08/09/24 08:00 General: Alert, In no apparent distress, Oriented x3 HEENT: Atraumatic, PERRLA Neck: Supple, JVD not distended Respiratory: Clear to auscultation bilaterally, Normal air movement Cardiovascular: Regular rate/rhythm, Normal S1 S2 Gastrointestinal: Normal bowel sounds, No tenderness Musculoskeletal: No tenderness Integumentary: Other (Breast with cellulitic changes, JAD drain in place) Neurological: Normal speech, Normal tone, Normal affect Laboratory Data at Discharge: WBC 8.10 thou/uL (4.3-10.9) 08/09/24 07:50 Hgb 12.4 g/dL (12.0-15.0) 08/09/24 07:50 Hct 37.3 % (36.0-45.0) 08/09/24 07:50 Plt Count 349 thou/uL (152-406) 08/09/24 07:50 PT 11.7 SECONDS (9.4-12.5) 08/08/24 21:55 INR 1.12 08/08/24 21:55 APTT 37.0 SECONDS (24.3-36.9) H 08/08/24 21:55 Sodium 136 mEq/L (136-145) D 08/09/24 07:50 Potassium 4.0 mEq/L (3.5-5.1) 08/09/24 07:50 BUN 12 mg/dL (7-18) 08/09/24 07:50 Creatinine 0.71 mg/dL (0.55-1.02) 08/09/24 07:50 Glucose 361 mg/dL (74-106) H 08/09/24 07:50 Magnesium 1.9 mg/dL (1.6-2.4) 08/09/24 07:50 Total Bilirubin 0.2 mg/dL (0.2-1.0) 08/08/24 21:55 AST < 10 U/L (15-37) L 08/08/24 21:55 ALT 22 U/L (13-56) 08/08/24 21:55 Alkaline Phosphatase 147 U/L (45-117) H 08/08/24 21:55 Home Medications: Tramadol HCl [Conzip] 50 mg PO Q4HR PRN #30 cpbp.25.75 10/16/16 lisinopriL [Lisinopril] 10 mg PO DAILY WITH BREAKFAST 10/16/16 Clindamycin HCl 150 mg PO TID #30 tab 08/09/24 Hydrocodone 10/APAP 325 [[place] 10/325] 1 tab PO Q6H PRN #20 tab 08/09/24 Mupirocin Oint [Bactroban 2% Ointment] 22 appl TP TID #1 tube 08/09/24 Saccharomyces Boulardii [Florastor] 250 mg PO DAILY #30 cap 08/09/24 rifAMPin [Rifampin] 300 mg PO BID #20 cap 08/09/24 New Medications: Mupirocin Oint [Bactroban 2% Ointment] 22 appl TP TID #1 tube Clindamycin HCl 150 mg PO TID #30 tab Saccharomyces Boulardii [Florastor] 250 mg PO DAILY #30 cap Hydrocodone 10/APAP 325 [[place] 10/325] 1 tab PO Q6H PRN #20 tab PRN Reason: Pain rifAMPin [Rifampin] 300 mg PO BID #20 cap Physician Discharge Instructions: Patient was admitted to the hospital for an abscess to her right breast. She underwent incision and drainage with Dr. Carr on 08/09/2024. She tolerated the procedure well and is stable for discharge and outpatient follow-up. There is a JAD drain in place. Dr. Carr wishes for patient to call his clinic on Saturday 08/12 to arrange for an appointment on Monday 08/14 for further management. She will be sent a prescription for antibioticsclindamycin as well as some additional pain medications. She was counseled extensively on the importance of getting tighter control of her blood sugars with her diabetes as if her sugars are not well-controlled her wound will not heal appropriately and she is at risk for further complications and worsening infection. Diet: ADA Activity: Ad apple Followup: Joan Kebede MD [Primary Care Provider] - 1-2 Weeks Joel Carr MD [OUTSIDE PHYSICIAN] - 2-3 Days Time spent managing pt's care (in minutes): 42
[2024-08-09] MEDS: INSULIN GLARGINE 100 UNIT/ML SQ ONE (15:14)
[2024-08-09] MEDS: CLINDAMYCIN 600MG/D5W 50 ML IV SCH (16:31)
[2024-08-09] MEDS ORDERED: VANCOMYCIN 2 GM in NA CHLORIDE 0.9% 500 ML IVPB SCH (18:00)
[2024-08-09] MEDS: INSULIN GLARGINE 100 UNIT/ML SQ SCH (20:35)
[2024-08-09] MEDS: APIXABAN 5 MG TABLET PO SCH (20:36)
[2024-08-09] MEDS: AMLODIPINE 10 MG TAB PO SCH (20:44)
[2024-08-10 06:30] LABS: Absolute Lymphocytes (CBC) 1.9 K/uL (0.7-4.9); Absolute Monocytes 0.6 K/uL (0.1-1.3); Absolute Neutrophil 7.9 K/uL (1.8-8.0); Basophils % 0.2 % (0-1.3); Eosinophils % 0.1 % (0-4.4); Hematocrit 36.9 % (36.0-45.0); Hemoglobin 12.3 g/dL (12.0-15.0); Lymphocytes % 18.5 % (15.3-44.8); MCH 27.3 pg (27.0-35.0); MCHC 33.5 g/dL (32.0-36.0); MCV 81.4 fL (80-100); MPV 7.7 fL (7.6-11.3); Monocytes % 5.4 % (3.3-12.3); Neutrophils % 75.8 % (41.7-73.7); Nucleated Red Blood Cells % 0.2 % (0-0); Platelets 381 thou/uL (152-406); RBC Red Blood Cell Count 4.53 M/uL (3.86-4.86); Red Cell Distribution Width 14.6 % (12.1-15.2)
[2024-08-10] MEDS: INSULIN GLARGINE 100 UNIT/ML SQ SCH (08:16)
[2024-08-10] MEDS: METOPROLOL XL 50 MG TAB PO SCH (08:18)
[2024-08-10] MEDS: lisinopriL 20 MG TAB PO SCH (08:18)
[2024-08-10] MEDS: FLUOXETINE 20 MG CAP PO SCH (08:18)
[2024-08-10] MEDS ORDERED: AMLODIPINE 10 MG TAB PO SCH ×2 (09:00)
[2024-08-10] MEDS ORDERED: LOSARTAN POTASSIUM 50 MG TABLET PO SCH (09:00)
[2024-08-10 12:17] VITALS: BP 131/77; TEMP 97.6
[2024-08-10] MEDS: HYDROCODONE/APAP 10/325 TAB PO PRN (12:27)
== END 2024-08-10 15:55 | disposition home or self-care (01) ==
LOC: ER 17:06 → ERHOLD 08-09 00:31 → 2ND 08-09 11:57
PROVIDERS: ADMIT Internal Medicine; ATTEND Hospitalist
PROC: 0JB60ZZ Excision of Chest Subcutaneous Tissue and Fascia, Open Approach (ICD-10-PCS; principal; 2024-08-09 11:30)
DX: N61.1 Abscess of the breast and nipple (principal); A41.9 Sepsis, unspecified organism; E11.65 Type 2 diabetes mellitus with hyperglycemia; I96 Gangrene, not elsewhere classified
CPT/HCPCS: 87040 ×2; 87070; 85025 ×2; 80048 ×2; 36415 ×2; 83735; 82947 ×10; 87205; 84703; 85610; 80061; 83605 ×3; 85730; 87075; 80202; 85027; 80053; 71260; 99284; 11042; Q9967; J2550; J2704; J1100; J2003; J2250; J3010 ×3; J1171 ×6; J2405 ×3; G0378 ×5; J7040; J7030 ×5; J0692